=== PATIENT | male | born 1990 | race Caucasian/White ===

== ENCOUNTER 2024-08-23 09:03 | Outpatient (OUT) | payer MEDICAID, SELFPAY ==
--- NOTE | 2024-08-23 09:13 | CT_ITS ---
The [address] [address] Patient Name: JUICE WHITE MRN: [id number] date: 1990 Sex: M Assigned Patient Location: CT Current Patient Location: CT Accession/Order Number: [id number] Exam Date: 08/23/2024 11:32 Report Date: 08/23/2024 12:23 At the request of: LIZBETH FARR NP Procedure: CT abdomen pelvis w con CT Abdomen and Pelvis withcontrast TECHNIQUE: Axial imaging with 2-D reconstruction.100 cc of Omnipaque 300. The CT exam was performed using one or more the following dose reduction techniques: Automated exposure control, adjustment of the MA and/or Kv according to patient size, or use of the iterative reconstruction technique. COMPARISON: None History: Acute left inguinal mass developing 3-4 weeks ago. No leakage of follow-up. Limited fluid. LIMITATIONS: None LOWER THORAX mild atelectasis LIVER: Tiny subcentimeter ill-defined hypodensities seen throughout the liver. These are indeterminate. 2 small to characterize. GALLBLADDER: No gallbladder abnormality identified. BILE DUCTS: No dilatation SPLEEN: A tiny subcentimeter hypodensity in the inferior portion of the spleen. Indeterminate. PANCREAS: Unremarkable ADRENAL GLANDS: Unremarkable KIDNEYS:Unremarkable AORTA: No abdominal aortic aneurysm identified. RETROPERITONEUM: Mildly prominent periaortic lymph nodes seen. Maximal short axis dimension less than 1 cm. MESENTERY:Unremarkable SMALL BOWEL: The small bowel loops are nondistended. APPENDIX: The appendix is normal. COLON: Unremarkable URINARY BLADDER: Urinary bladder is unremarkable. REPRODUCTIVE SYSTEM: Reproductive structures are unremarkable. PNEUMOPERITONEUM: None PERITONEAL FLUID:None BONY STRUCTURES: Unremarkable ABDOMINAL WALL: In the left groin and region there is somewhat ill-defined hypodense likely fluid collection measuring 3.3 x 3.0 cm. Adjacent stranding identified. Suspected 2 cm soft tissue component identified. Adjacent to the collection there are multiple small lymph nodes identified. Largest measures 1.3 x 0.8 cm. In the left iliac region there is enlarged lymph node measuring 2.7 x 1.8 cm. Mildly prominent right inguinal lymph nodes identified. Largest measures up to 10 mm in short axis dimension. The more posterior in the pelvis in the left iliac region there is identification of additional lymph node measuring 2.[address]/CT abdomen pelvis w con IMPRESSION: 3.3 cm collection identified in the left inguinal region with adjacent inflammatory changes. This may correspond with patient's history of purulent drainage and may represent abscess. There is adjacent soft tissue component present. This may correspond with enlarged lymph node. There is also additional adjacent enlarged lymph nodes. There is also additional enlarged lymph nodes identified in the left iliac chain. Constellation of findings may represent infectious or inflammatory etiology. Continued follow-up assessment to exclude malignancy should be consideration. Additionally there are multiple very small indeterminate hepatic lesions identified. These are too small to characterize and may represent multiple cysts. These should be further assessed to exclude other etiologies. Best modality for assessment would include MRI of the abdomen with and without contrast. Impression dictated by: Antoine Matamoros M.D.08/23/2024 12:23 PM Dictation Location: [place] [address] Electronically authenticated by: [id number] Y Date: 08/23/2024 12:23
== END 2024-08-23 09:04 | disposition home or self-care (01) ==
PROVIDERS: PCP Family Medicine; Visit Provider Nurse Practitioner Primary Care
DX: R19.02 Left upper quadrant abdominal swelling, mass and lump (principal); R94.8 Abnormal results of function studies of other organs and systems
CPT/HCPCS: 74177; Q9967

== ENCOUNTER 2024-09-09 08:02 | Outpatient (OUT) | payer OTHER, SELFPAY ==
--- OUTSIDE RECORDS SUMMARY | 2024-09-03 09:09 | XMS_ITS | CCD ---
Author Organization [facility] Inform ion Partnership GROUP EXERCISE INSTRUCTOR [facility] Care Team Providers Care Director Marketing Name Role Phone Seal CORONA Sharif ODILONLexus Primary Care Provider Helga Cruz Primary Care Provider TIMBO GILBERT Consulting Unavailable NICK GENTILE Attending Unavailable BLUNT, HELGA M Primary Care Unavailable Blunt, Helga M Primary Care Provider BLUNT, HELGA M Primary Care Unavailable GENO, ABED E Admitting Unavailable GENO, ABED E Attending Unavailable No Pcp, No Pcp Primary Care Provider Unavailabl e BLUNT, HELGA M Primary Care Unavailable BITE V, CEFERINO Referring Unavailable BITE V, CEFERINO Attending Unavailable Blunt Helga [facility] Primary Care Provider CARLOS ALBERTO GONZALEZ Referring Unavailable NO PCP, NO PCP Primary Care Unavailable CHRISTINA BAKER Referring Unavailable NO PCP, NO PCP Primary Care Unavailable PHYSICIAN, UNKNOWN Referring Unavailable NO PCP, NO PCP Primary Care Unavailable PHYSICIAN, UNKNOWN Referring Unavailable NO PCP, NO PCP Primary Care Unavailable PHYSICIAN, UNKNOWN Referring Unavailable NO PCP, NO PCP Primary Care Unavailable Blunt, Helga M Attending Unavailable Blunt, Helga M Primary Care Unavailable Blunt, Helga M Attending Unavailable Blunt, Helga M Primary Care Unavailable Blunt, Helga M Attending Unavailable Blunt, Helga M Primary Care Unavailable Blunt, Helga M Primary Care Unavailable Bite DO, Ceferino V Admitting Unavailable Bite DO, Ceferino V Attending Unavailable Allergies Allergy Classification Reported Allergen(s) Allergy Type Date of Onset Reaction(s) Facility (13 sources) Penicillins; Translations: [PENICILLINS] Propensity to adverse reactions to drug 12-31-2013 Swelling [facility] Medications Current Medications Medication Drug Class(es) Dates Sig (Normalized) Sig (Original) benzoyl peroxide 50 mg/ml topical solution (1 source) Start: 02-06-2024 benzoyl peroxide 5 % external liquid Indications: Hidradenitis suppurativa Wash affected areas once daily 227 g 3 02/06/2024 Active buprenorphine 8 mg / naloxone 2 mg sublingual film (1 source) Partial Opioid Agonist, Opioid Antagonist Start: 09-18-2023 buprenorphine-nalox one (SUBOXONE) 8-2 MG FILM SL film dissolve 1 FILM under the tongue twice a day 09/18/2023 Active clindamycin 10 mg/ml topical lotion (1 source) Lincosamide Antibacterial Start: 02-06-2024 clindamycin (CLEOCIN T) 1 % lotion Indications: Hidradenitis suppurativa Apply to affected areas daily 60 mL 3 02/06/2024 Active dimethyl fumarate 120 mg delayed release oral capsule (1 source) Start: 06-21-2022 take 1 capsule by mouth twice daily dimethyl fumarate (TECFIDERA) 120 MG delayed release capsule Take 1 capsule by mouth 2 times daily 14 capsule 0 06/21/2022 Active doxepin hydrochloride 10 mg oral capsule (6 sources) Tricyclic Antidepressant Start: 09-23-2016 take 1 capsule by mouth in the morning doxepin (SINEquan) 10 mg capsule Take 1 capsule (10 mg total) by mouth in the morning. 09/23/2016 Active 1 ml EPINEPHrine 1 mg/ml injection (1 source) alpha-Adrenergic Agonist, beta-Adrenergic Agonist, Catecholamine Start: 01-17-2024 End: 01-18-2024 0.3 mg, intramuscular, Every 5 min PRN, emergency use for dypsnea, wheezing, stridor, or hypotension (at least 30% decrease in systolic BP) (from treatment/therapy plan)., Starting on Mon01/17/24 at 0823, For 3 doses, Give IM into the anterolateral aspect of the middle third of the thigh (preferred) up to 3 doses (total of 0.9 mg). Activate emergency response Look-alike/sound-al gerson medication - verify indication for use. gabapentin 100 mg oral capsule (6 sources) Anti-epileptic Agent Start: 11-18-2018 take 1 capsule by mouth twice daily as needed gabapentin (NEURONTIN) 100 mg capsule Take 1 capsule (100 mg total) by mouth 2 (two) times a day as needed. 0 11/18/2018 Active 1000 ml glucose 100 mg/ml injection (3 sources) Start: 02-14-2022 take 1 mL intravenously every hour IntraVENous, at 100 mL/hr, CONTINUOUS PRN, if blood glucose remains LESS THAN 70 mg/dL after 2 dextrose 10% intravenous boluses or administration of glucagon, Starting on Mon02/14/22 at 0348 If blood glucose fails to stabilize after 2 dextrose 10% intravenous boluses or glucagon administration, start dextrose 10% infusion at 100 mL/hour and repeat blood glucose at 30 and 60 minutes. If blood glucose is GREATER THAN 70 mg/dL after 60 minutes, discontinue dextrose 10% infusion. Start: 02-14-2022 dextrose bolus 10% 125 mL Start: 02-14-2022 16 g (4 tablet ), Oral, PRN, Starting on Mon02/14/22 at 0348, Until Discontinued, Low blood sugar If blood glucose is LESS THAN 70 mg/dL and patient is alert and tolerating oral. Give 4 tablets (16g) Repeat blood glucose in 15 minutes. If blood glucose is LESS THAN 70 mg/dL, repeat treatment and recheck blood glucose in 15 minutes x 2. If blood glucose remains LESS THAN 70 mg/dL, notify provider. meloxicam 7.5 mg oral tablet (6 sources) Nonsteroidal Anti-inflammatory Drug take 1 tablet by mouth in the morning meloxicam (MOBIC) 7.5 mg tablet Take 1 tablet (7.5 mg total) by mouth in the morning. Active modafinil 200 mg oral tablet (1 source) Sympathomimetic-like Agent Start: End: take 1 tablet by mouth once daily modafinil (PROVIGIL) 200 MG tablet Indications: Relapsing remitting multiple sclerosis (HCC) Take 1 tablet by mouth daily for 30 days. Max Daily Amount: 200 mg 30 tablet 0 12/26/2022 01/25/2023 Active ondansetron (ZOFRAN-ODT) disintegrating tablet 4 mg (1 source) Start: ondansetron (ZOFRAN-ODT) disintegrating tablet 4 mg pantoprazole 40 mg delayed release oral tablet (4 sources) Proton Pump Inhibitor Start: End: 09-28-2 022 take 1 tablet by mouth once daily pantoprazole (PROTONIX) 40 MG tablet Take 1 tablet by mouth daily for 7 days 7 tablet 0 02/16/2022 Active pantoprazole (PROTONIX) 40 mg in sodium chloride (PF) 10 mL injection (1 source) Start: 40 mg, IntraVENous, DAILY, First dose on 02/14/22 at 0400 Reconstitute with 10 mL 0.9 % sodium chloride and administer over at least 2 minutes. predniSONE 20 mg oral tablet (4 sources) Start: End: take 4 tablets by mouth once daily predniSONE (DELTASONE) 10 MG tablet Take 4 tablets by mouth daily for 3 days 12 tablet 0 03/08/2022 03/11/2022 Active Start: 03-08-2022 End: 03-11-2022 take 2 tablets by mouth once daily predniSONE (DELTASONE) 10 MG tablet Take 2 tablets by mouth daily for 3 days 6 tablet 0 03/08/2022 03/11/2022 Active Start: 03-08-2022 End: 03-11-2022 take 3 tablets by mouth once daily predniSONE (DELTASONE) 20 MG tablet Take 3 tablets by mouth daily for 3 days 9 tablet 0 03/08/2022 03/11/2022 Active Start: 03-08-2022 End: 03-11-2022 take 2 tablets by mouth once daily predniSONE (DELTASONE) 5 MG tablet Take 2 tablets by mouth daily for 3 days 6 tablet 0 03/08/2022 03/11/2022 Active 1000 ml sodium chloride 9 mg/ml injection (9 sources) Start: 06-26-2024 take 25 mL intravenously every hour as needed 25 mL/hr, intravenous, Continuous PRN, When mainline IV needed., Starting on Mon06/26/24 at 1131, Match IVF to base solution of product being administered to ensure compatibility. Start: 06-20-2024 10 mL, IntraVE Nous, PRN, Starting on Mon06/20/24 at 0919, Until Discontinued, Line Care Start: 01-17-2024 take 25 mL intraveno usly every hour as needed 25 mL/hr, intravenous, Continuous PRN, When mainline IV needed., Starting on Mon01/17/24 at 0823, Match IVF to base solution of product being administered to ensure compatibility. Start: 01-17-2024 End: 01-18-2024 500 mL, intravenous, at 3,00 0 mL/hr, Administer over 10 Minutes, As needed, decrease of systolic BP greater than 30% from baseline., Starting on Mon01/17/24 at 0823, For 1 dose, wide open off of the IV pump. Call provider for additional bolus', if needed. Start: 12-28-2023 End: 12-28-2023 take 25 mL intravenously every hour as needed 25 mL/hr, intravenous, Continuous PRN, When mainline IV needed., Starting on Lori 12/28/23 at 0931, Match IVF to base solution of product being administered to ensure compatibility. Start: 02-14-2022 take 1 dose intraven ously twice daily 5-40 mL, IntraVENous, EVERY 12 HOURS SCHEDULED (2 times per day), First dose on Mon02/14/22 at 2100, Until Discontinued For Line Patency: Peripheral IV = 5 mL; Midline or Central Line = 10 mL/lumen. If following IV push medication, administer flush at same rate as the IV push. Flush volume is determined by type of infusion therapy being given. For non-viscous solutions use: Peripheral IV = 5 mL Midline or Central Line = 10 mL/lumen For viscous solutions (i.e. blood components, parenteral nutrition, contrast media, or after obtaining blood sample) use: Peripheral IV = 10 mL Midline or Central Line = 20 mL/lumen Start: 02-14-2022 take 5-40 mL intrave nously once as needed 5-40 mL, IntraVENous, PRN, Starting on Mon02/14/22 at 1800, Until Discontinued, Line Care, After every IV line use For Line Patency: Peripheral IV = 5 mL; Midline or Central Line = 10 mL/lumen. If following IV push medication, administer flush at same rate as the IV push. Flush volume is determined by type of infusion therapy being given. For non-viscous solutions use: Peripheral IV = 5 mL Midline or Central Line = 10 mL/lumen For viscous solutions (i.e. blood components, parenteral nutrition, contrast media, or after obtaining blood sample) use: Peripheral IV = 10 mL Midline or Central Line = 20 mL/lumen Start: 02-14-2022 sodium chlorid e flush 0.9 % injection 10 mL Start: 02-14-2022 IntraVENous, a t 5-250 mL/hr, PRN, if patient receiving piggyback infusions and maintenance fluids are not ordered OR KVO fluids to protect IV site / prevent frequent line interruptions/ long duration, Starting on Mon02/14/22 at 0348 For piggyback infusion, administer at same rate as piggyback for a total of 25 mL. Enter 25 mL into dose field and piggyback rate into rate field of order. If piggyback is infusing at a rate less than 100 mL/hr, enter 25 mL into dose field and 100 mL/hr into rate field of order. For KVO fluids, enter rate of 20 mL/hr or less into rate field of order. tadalafil 5 mg oral tablet (1 source) Phosphodiesterase 5 Inhibitor Start: 04-23-2022 take 1 tablet by mouth once daily tadalafil (CIALIS) 5 MG tablet take 1 tablet by mouth once daily 0 04/23/2022 Active tamsulosin hydrochloride 0.4 mg oral capsule (1 source) alpha-Adrenergic Natalia Start: 04-11-2024 take 1 capsule by mouth once daily tamsulosin (FLOMAX) 0.4 MG capsule Take 1 capsule by mouth daily 30 capsule 11 04/11/2024 Active teriflunomide 14 mg oral tablet (6 sources) Pyrimidine Synthesis Inhibitor Start: 12-19-2018 take 1 tablet by mouth in the morning teriflunomide 14 mg tablet Take 1 tablet (14 mg total) by mouth in the morning. 12/19/2018 Active traMADol hydrochloride 50 mg oral tablet (6 sources) Opioid Agonist take 1 tablet by mouth every six hours as needed traMADol (ULTRAM) 50 mg tablet Take 1 tablet (50 mg total) by mouth every 6 (six) hours as needed. Active Completed/Discontinued Medications Medication Drug Class(es) Dates Sig (Normalized) Sig (Original) acetaminophen 500 mg oral tablet (4 sources) Start: 06-26-2024 End: 06-26-2024 take 500 mg by mouth once 500 mg, oral, Once, On Mon06/26/24 at 1145, For 1 dose Start: 01-17-2024 End: 01-17-2024 take 500 mg by mouth once 500 mg, oral, Once, On Mon at 0830, For 1 dose Start: 12-28-2023 End: 12-28-2023 take 500 mg by mouth once 500 mg, oral, Once, On Mon at 0945, For 1 dose Start: 02-14-2022 acetaminophen (TYLENOL) tablet 650 mg diphenhydrAMINE hydrochloride 25 mg oral capsule (4 sources) Histamine-1 Receptor Antagonist Start: 06-26-2024 End: 06-26-2024 take 25 mg by mouth once 25 mg, oral, Once, On Mon06/26/24 at 1145, For 1 dose, Look-alike/sound-alike medication - verify indication for use. Start: 01-17-2024 End: 01-17-2024 take 25 mg by mouth once 25 mg, oral, Once, On Mon at 0830, For 1 dose, Look-alike/sound-alike medication - verify indication for use. Start: 01-17-2024 End: 01-18-2024 25 mg, intravenous, Every 15 min PRN, emergency use for urticaria, pruritus, or flushing (from treatment/therapy plan)., Starting on Mon01/17/24 at 0823, For 2 doses, Look-alike/sound-alike medication - verify indication for use. Start: 12-28-2023 End: 12-28-2023 take 25 mg by mouth once 25 mg, oral, Once, On 06/21 at 0945, For 1 dose, Look-alike/sound-alike medication - verify indication for use. 0.4 ml enoxaparin sodium 100 mg/ml prefilled syringe (1 source) Low Molecular Weight Heparin Start: 02-14-2022 inject 40 mg by subcutaneous injection once daily 40 mg, SubCUTAneous, DAILY, First dose on Mon02/14/22 at 0900, Until Discontinued Indication of Use: Prophylaxis-DVT/PE gadoteridol (PROHANCE) injection 14 mL (1 source) Start: 02-14-2022 End: 02-14-2022 gadoteridol (PROHANCE) injection 14 mL gadoteridol (PROHANCE) injection 15 mL (1 source) Start: 06-20-2024 End: 06-20-2024 take 1 dose intravenously once 15 mL, IntraVENous, IMG ONCE PRN, 1 dose, Starting on Lori 06/20/24 at 0917, Until Lori 06/20/24 at 0918, Other glucagon (rdna) 1 mg injection (1 source) Antihypoglycemic Agent Start: 02-14-2022 inject 1 mg by subcutaneous injection every hour as needed 1 mg, SubCUTAneous, PRN, Starting on Mon02/14/22 at 0348, Until Discontinued, Low blood sugar, Blood glucose LESS THAN 70 mg/dL and patient NOT ALERT or NPO and does not have IV access. After administration, attempt intravenous access and start dextrose 10% at 100 mL/hr. Repeat blood glucose in 15 minutes x 2 and notify provider. insulin lispro 100 unt/ml injectable solution (2 sources) Insulin Analog Start: 02-14-2022 0-4 Units, SubCUTAneous, NIGHTLY, First dose on Mon02/14/22 at 2100, Until Discontinued If continuous tube feedings/TPN/NPO, give correction dose based on result, no reduction in dose. If eating or bolus tube feeding: Corre ctive Bedtime Algorithm Gluc ose: Dose: 70-299 No Insulin 300-349 4 Units Over 349 4 Units and notify physician Start: 02-14-2022 0-8 Units, Sub CUTAneous, 3 TIMES DAILY WITH MEALS, First dose on Mon02/14/22 at 0800, Until Discontinued Medium Dose Corrective Algorithm Glucose: Dose: 70-199 No Insulin 200-249 2 Units 250-299 4 Units 300-349 6 Units Over 349 8 Units and notify physician LORazepam 0.5 mg oral tablet (1 source) Benzodiazepine Start: 02-14-2022 End: 02-14-2022 LORazepam (ATIVAN) tablet 1 mg Start: 02-14-2022 End: 02-14-2022 LORazepam (ATIVAN) tablet 1 mg methylPREDNISolone 125 mg injection (9 sources) Corticosteroid Start: 06-26-2024 End: 06-26-2024 125 mg, intravenous, Once, On 06/26/24 at 1145, For 1 dose, May alter blood glucose or insulin requirements. Look-alike/sound-alike medication - verify indication for use. Start: 01-17-2024 End: 01-17-2024 125 mg, intravenous, Once, O n 01/17/24 at 0830, For 1 dose, May alter blood glucose or insulin requirements. Look-alike/sound-alike medication - verify indication for use. Start: 01-17-2024 End: 01-18-2024 125 mg, intravenous, As need ed, emergency use for adverse reactions (from treatment/therapy plan)., Starting on 01/17/24 at 0823, For 2 doses, Should not be used as initial management of anaphylaxis but may prevent a prolonged or recurrent reaction. May alter blood glucose or insulin requirements. Look-alike/sound-alike medication - verify indication for use. Start: 12-28-2023 End: 12-28-2023 125 mg, intravenous, Once, O n Lori 12/28/23 at 0945, For 1 dose, May alter blood glucose or insulin requirements. Look-alike/sound-alike medication - verify indication for use. Start: 03-08-2022 End: 03-08-2022 methylPREDNISolone sodium (SOLU-MEDROL) injection 125 mg Start: 02-16-2022 inject 1000 mg intra venously once daily methylPREDNISolone sodium (SOLU-MEDROL) 1000 MG injection Indications: Relapsing remitting multiple sclerosis (HCC) 1000 mg intravenously daily for 2 days; diagnosis: multiple sclerosis 2 each 0 02/16/2022 Active methylPREDNISolone sodium (SOLU-MEDROL) 1,000 mg in sodium chloride 0.9 % 250 mL IVPB (2 sources) Start: 02-19-2022 End: 02-19-2022 methylPREDNISolone sodium (SOLU-MEDROL) 1,000 mg in sodium chloride 0.9 % 250 mL IVPB Start: 02-15-2022 End: 02-20-2022 methylPREDNISolone sodium (S GEOFF-MEDROL) 1,000 mg in sodium chloride 0.9 % 250 mL IVPB methylPREDNISolone sodium (SOLU-MEDROL) 500 mg in sodium chloride 0.9 % 250 mL IVPB (1 source) Start: 02-14-2022 End: 02-14-2022 500 mg, IntraVENous, at 500 mL/hr, Administer over 30 Minutes, 2 times daily, First dose on Mon02/14/22 at 0900 polyethylene glycol 3350 23847 mg powder for oral solution (1 source) Osmotic Laxative Start: 02-14-2022 17 g, Oral, D AILY PRN, Starting on Mon02/14/22 at 0348, Until Discontinued, Constipation First line therapy for constipation ublituximab-xiiy (BRIUMVI) 150 mg in sodium chloride 0.9 % 250 mL IVPB (1 source) Start: 12-28-2023 End: 12-28-2023 150 mg, intravenous, Once, On Mon12/28/23 at 0945, For 1 dose, 1st dose Dose 1 (150 mg): Initiate infusion at 10 mL/hour for 30 minutes; if tolerated, increase to 20 mL/hour for 30 minutes; if tolerated, increase to 35 mL/hour for 60 minutes; if tolerated, increase to 100 mL/hour for the remainder of the infusion. Infusion duration: 4 hours. Dose 2 and subsequent infusions (450 mg): Initiate infusion at 100 mL/hour for 30 minutes; if tolerated, increase to 400 mL/hour for the remainder of the infusion. Infusion duration: 1 hour. Monitor for infusion reactions during infusion and observe for at least 1 hour after completion of first two infusions. ublituximab-xiiy (BRIUMVI) 450 mg in sodium chloride 0.9 % 250 mL IVPB (2 sources) Start: 06-26-2024 End: 06-26-2024 450 mg, intravenous, Once, On Mon06/26/24 at 1145, For 1 dose, Maintenance dose, to start 24 weeks after 1st dose, then every 24 weeks thereafter Dose 1 (150 mg): Initiate infusion at 10 mL/hour for 30 minutes; if tolerated, increase to 20 mL/hour for 30 minutes; if tolerated, increase to 35 mL/hour for 60 minutes; if tolerated, increase to 100 mL/hour for the remainder of the infusion. Infusion duration: 4 hours. Dose 2 and subsequent infusions (450 mg): Initiate infusion at 100 mL/hour for 30 minutes; if tolerated, increase to 400 mL/hour for the remainder of the infusion. Infusion duration: 1 hour. Monitor for infusion reactions during infusion and observe for at least 1 hour after completion of first two infusions. Start: 01-17-2024 End: 01-17-2024 450 mg, intravenous, Once, O n 01/17/24 at 0830, For 1 dose, 2nd dose, 2weeks after 1st dose Dose 1 (150 mg): Initiate infusion at 10 mL/hour for 30 minutes; if tolerated, increase to 20 mL/hour for 30 minutes; if tolerated, increase to 35 mL/hour for 60 minutes; if tolerated, increase to 100 mL/hour for the remainder of the infusion. Infusion duration: 4 hours. Dose 2 and subsequent infusions (450 mg): Initiate infusion at 100 mL/hour for 30 minutes; if tolerated, increase to 400 mL/hour for the remainder of the infusion. Infusion duration: 1 hour. Monitor for infusion reactions during infusion and observe for at least 1 hour after completion of first two infusions. 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 disorder; Translations: [Multiple sclerosis] Onset: 01-20-2014 Chronic Other nervous system disorders (5 sources) Chronic pain; Translations: [Other chronic pain] Onset: 12-31-2013 12-31-2013 Chronic Residual codes; unclassified (1 source) Other specified postprocedural states; Translations: [Other specified postprocedural states] Onset: 03-26-2024 Episodic Skin and subcutaneous tissue infections (1 source) Pilonidal cyst without abscess; Translations: [Pilonidal cyst without abscess] Onset: 03-26-2024 Episodic Substance-related disorders (5 sources) Polysubstance abuse ; Translations: [Other psychoactive substance abuse, uncomplicated] Onset: 08-18-2015 08-18-2015 Chronic Unclassified (1 source) Outpatient Infusion Onset: 06-26-2024 Past or Other Problems Problem Classification Problem Date Documented Da te Episodic/Chronic Acute cerebrovascular disease (8 sources) Hemorrhage into subarachnoid space of neuraxis; Translations: [Nontraumatic subarachnoid hemorrhage, unspecified] Onset: 08-18-2015 Resolved: 07-28-2020 07-28-2020 Chronic Administrative/social admission (5 sources) Impaired mobility; Translations: [Other reduced mobility] Resolved: 07-28-2020 07-28-2020 Episodic E Codes: Struck by; against (5 sources) Other cause of strike by thrown, projected or falling object, initial encounter; Translations: [Struck accidentally by falling object] Onset: 08-18-2015 08-18-2015 Episodic Epilepsy; convulsions (5 sources) Posttraumatic seizure; 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] Onset: 10-07-2015 10-26-2016 Episodic Intracranial injury (2 sources) Hematoma of subdural space of neuraxis; Translations: [Traumatic subdural hemorrhage with loss of consciousness of unspecified duration, initial encounter] Onset: 08-20-2015 Resolved: 07-28-2020 07-28-2020 Episodic Other fractures (5 sources) Closed fracture of seventh cervical vertebra; Translations: [Unspecified nondisplaced fracture of seventh cervical vertebra, initial encounter for closed fracture] Onset: 08-19-2015 Resolved: 07-28-2020 07-28-2020 Episodic Other injuries and conditions due to external causes (5 sources) Closed injury of head; Translations: [Unspecified injury of head, initial encounter] Resolved: 07-28-2020 07-28-2020 Episodic Other nervous system disorders (6 sources) Numbness of lower limb ; Translations: [Anesthesia of skin] Onset: 02-14-2022 Episodic Other nervous system disorders (6 sources) Transverse myelopathy syndrome; 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] Onset: 02-14-2022 Episodic Other skin disorders (5 sources) Sebaceous cyst of skin; Translations: [Sebaceous cyst] Onset: 01-01-2014 Resolved: 07-28-2020 07-28-2020 Episodic Residual codes; unclassified (5 sources) Amnesia; Translations: [Other amnesia] Onset: 07-28-2020 07-28-2020 Episodic Respiratory failure; insufficiency; arrest (adult) (5 sources) Acute respiratory failure; Translations: [Acute respiratory failure, unspecified whether with hypoxia or hypercapnia] Onset: 08-18-2015 Resolved: 07-28-2020 07-28-2020 Episodic Skull and face fractures (5 sources) Fracture of occipital condyle; Translations: [Unspecified occipital condyle fracture, initial encounter for closed fracture] Onset: 08-18-2015 Resolved: 07-28-2020 07-28-2020 Episodic Results Test Name Value Interpretation Reference Range Facility BLOOD TB SCREEN, INCUBATEDon 08-28-2024 M. tuberculosis tuberculin stim IFN-g Ql (Bld) Negative Normal [facility] Comment on above: Order Comment: Abi carpio Type: BLOOD SPECIMEN Ordering Facility: [facility] Address: [address] [place] [address] Performed By: #### I NTPGP #### [facility] CLIA [id number] [address] [place] [address] [place]ST[place] MITOGEN MINUS NIL >9.92 Normal >=0.50 [facility] Comment on above: Order Comment: Abi carpio Type: BLOOD SPECIMEN Ordering Facility: [facility] Address: [address] [place] [address] Performed By: #### I NTPGP #### [facility] CLIA [id number] [facility] [address] [facility] TB GAMMA INTERPRETATION Infection with M. tuberculosis complex is unlikely. If latent tuberculosis infection is highly suspected, a negative result does not rule out the infection. Specimens from immunocompromised patients and those <5 years of age may show false negative results. In case of a contact investigation, please repeat 8-12 weeks after a known exposure. Normal [facility] Comment on above: Order Comment: Abi carpio Type: BLOOD SPECIMEN Ordering Facility: [facility] Address: [address] [place] [address] Performed By: #### I NTPGP #### [facility] CLIA [id number] [address] [place] [address] [place] TB NIL 0.08 IU/mL Normal <=8.00 [facility] Comment on above: Order Comment: Speci men Type: BLOOD SPECIMEN Ordering Facility: [facility] Address: [address] [place] [address] Performed By: #### I NTPGP #### [facility] CLIA [id number] [address] [place] [address] [place] TB1 AG MINUS NIL 0.10 IU/mL Normal <0.35 [facility] Comment on above: Order Comment: Speci men Type: BLOOD SPECIMEN Ordering Facility: [facility] Address: [address] [place] [address] Performed By: #### I NTPGP #### [facility] CLIA [id number] [address] [place] [address] [place] TB2 AG MINUS NIL 0.01 IU/mL Normal <0.35 [facility] Comment on above: Order Comment: Speci men Type: BLOOD SPECIMEN Ordering Facility: [facility] Address: [address] [place] [address] Performed By: #### I NTPGP #### [facility] CLIA [id number] [address] [place] [address] [place] Rad - CT Reporton 08-26-2024 Rad - CT Report [id number]#1 .00OTGTIFF Normal [facility] BLOOD TB SCREEN, INCUBATEDon 08-18-2024 M. tuberculosis tuberculin stim IFN-g Ql (Bld) Negative Normal [facility] Comment on above: Order Comment: Speci men Type: BLOOD SPECIMEN Ordering Facility: [facility] Address: [address] [place] [address] Performed By: #### I NTPGP #### [facility] CLIA [id number] [address] [place] [address] [place] MITOGEN MINUS NIL >9.90 Normal >=0.50 [facility] Comment on above: Order Comment: Speci men Type: BLOOD SPECIMEN Ordering Facility: [facility] Address: [address] [place] [address] Performed By: #### I NTPGP #### [facility] CLIA [id number] [address] [place] [address] [place] TB GAMMA INTERPRETATION Infection with M. tuberculosis complex is unlikely. If latent tuberculosis infection is highly suspected, a negative result does not rule out the infection. Specimens from immunocompromised patients and those <5 years of age may show false negative results. In case of a contact investigation, please repeat 8-12 weeks after a known exposure. Normal [facility] Comment on above: Order Comment: Speci men Type: BLOOD SPECIMEN Ordering Facility: [facility] Address: [address] [place] [address] Performed By: #### I NTPGP #### [facility] CLIA [id number] [address] [place] [facility] [place] TB NIL 0.10 IU/mL Normal <=8.00 [facility] Comment on above: Order Comment: Speci men Type: BLOOD SPECIMEN Ordering Facility: [facility] Address: [address] [place] [address] Performed By: #### I NTPGP #### [facility] CLIA [id number] [address] [place] [address] [place] TB1 AG MINUS NIL 0.03 IU/mL Normal <0.35 [facility] Comment on above: Order Comment: Speci men Type: BLOOD SPECIMEN Ordering Facility: [facility] Address: [address] [place] [address] Performed By: #### I NTPGP #### [facility] CLIA [id number] [address] [place] [address] [place] TB2 AG MINUS NIL 0.02 IU/mL Normal <0.35 [facility] Comment on above: Order Comment: Speci men Type: BLOOD SPECIMEN [facility] Address: [address] [place] [address] Performed By: #### I NTPGP #### [facility] CLIA [id number] [address] [place] [address] [place] [address] [place] Release of Informationon Release of Information [id number]# [facility] 06-25-2024 Outside Records [id number]#1 [facility] - MRI Report [id number]#1 .00[facility] MR Brain WO and W contrast I Von 06-20-2024 Stable white matter lesions from prior exam. No diffusion restriction or contrast enhancement to suggest acute demyelination. Stable sequela of a remote hemorrhage. [facility] RIS CONSOLIDATED EXAMINATION: MRI OF THE BRAIN WITHOUT AND WITH CONTRAST 06/20/2024 9:17 am TECHNIQUE: Multiplanar multisequence MRI of the head/brain was performed without and with the administration of intravenous contrast. COMPARISON: February 14, 2022 MRI HISTORY: ORDERING SYSTEM PROVIDED HISTORY: Relapsing remitting multiple sclerosis (HCC) TECHNOLOGIST PROVIDED HISTORY: STAT Creatinine as needed:->No multiple sclerosis, monitor Reason for Exam: Patient states annual f/u MS. No current complaints. FINDINGS: INTRACRANIAL STRUCTURES/VENTRICLES : Stable white matter lesions from prior exam. Previously seen left pontine lesion is decreased in conspicuity from prior study. No diffusion restriction or contrast enhancement to suggest acute demyelination. There is no acute infarct. No mass effect or midline shift. Stable susceptibility surrounding the right corpus callosum.. The ventricles and sulci are normal in size and configuration. The sellar/suprasellar regions appear unremarkable. The normal signal voids within the major intracranial vessels appear maintained. No abnormal focus of enhancement is seen within the brain. ORBITS: The visualized portion of the orbits demonstrate no acute abnormality. SINUSES: The visualized paranasal sinuses and mastoid air cells demonstrate no acute abnormality. Small mucous retention cysts in the maxillary sinuses bilaterally. BONES/SOFT TISSUES: The bone marrow signal intensity appears normal. The soft tissues demonstrate no acute abnormality. [facility] Antoine Abbott MD - 06/20/2024 EXAMINATION: MRI OF THE BRAIN WITHOUT AND WITH CONTRAST 06/20/2024 9:17 am TECHNIQUE: Multiplanar multisequence MRI of the head/brain was performed without and with the administration of intravenous contrast. COMPARISON: February 14, 2022 MRI HISTORY: ORDERING SYSTEM PROVIDED HISTORY: Relapsing remitting multiple sclerosis (HCC) TECHNOLOGIST PROVIDED HISTORY: STAT Creatinine as needed:->No multiple sclerosis, monitor Reason for Exam: Patient states annual f/u MS. No current complaints. FINDINGS: INTRACRANIAL STRUCTURES/VENTRICLES : Stable white matter lesions from prior exam. Previously seen left pontine lesion is decreased in conspicuity from prior study. No diffusion restriction or contrast enhancement to suggest acute demyelination. There is no acute infarct. No mass effect or midline shift. Stable susceptibility surrounding the right corpus callosum.. The ventricles and sulci are normal in size and configuration. The sellar/suprasellar regions appear unremarkable. The normal signal voids within the major intracranial vessels appear maintained. No abnormal focus of enhancement is seen within the brain. ORBITS: The visualized portion of the orbits demonstrate no acute abnormality. SINUSES: The visualized paranasal sinuses and mastoid air cells demonstrate no acute abnormality. Small mucous retention cysts in the maxillary sinuses bilaterally. BONES/SOFT TISSUES: The bone marrow signal intensity appears normal. The soft tissues demonstrate no acute abnormality. IMPRESSION: Stable white matter lesions from prior exam. No diffusion restriction or contrast enhancement to suggest acute demyelination. Stable sequela of a remote hemorrhage. [facility] Radiology Study observation (narrative) [facility] MR Brain WO and W contrast I VOrdered By: Antoine Jerry on 06-20-2024 [facility] MRI BRAIN W WO CONTRASTon MRI BRAIN W WO CONTRAST EXAMINATION: MRI OF THE BRAIN WITHOUT AND WITH CONTRAST 06/20/2024 9:17 am TECHNIQUE: Multiplanar multisequence MRI of the head/brain was performed without and with the administration of intravenous contrast. COMPARISON: February 14, 2022 MRI HISTORY: ORDERING SYSTEM PROVIDED HISTORY: Relapsing remitting multiple sclerosis (HCC) TECHNOLOGIST PROVIDED HISTORY: STAT Creatinine as needed:->No multiple sclerosis, monitor Reason for Exam: Patient states annual f/u MS. No current complaints. FINDINGS: INTRACRANIAL STRUCTURES/VENTRICLES : Stable white matter lesions from prior exam. Previously seen left pontine lesion is decreased in conspicuity from prior study. No diffusion restriction or contrast enhancement to suggest acute demyelination. There is no acute infarct. No mass effect or midline shift. Stable susceptibility surrounding the right corpus callosum.. The ventricles and sulci are normal in size and configuration. The sellar/suprasellar regions appear unremarkable. The normal signal voids within the major intracranial vessels appear maintained. No abnormal focus of enhancement is seen within the brain. ORBITS: The visualized portion of the orbits demonstrate no acute abnormality. SINUSES: The visualized paranasal sinuses and mastoid air cells demonstrate no acute abnormality. Small mucous retention cysts in the maxillary sinuses bilaterally. BONES/SOFT TISSUES: The bone marrow signal intensity appears normal. The soft tissues demonstrate no acute abnormality. IMPRESSION: Stable white matter lesions from prior exam. No diffusion restriction or contrast enhancement to suggest acute demyelination. Stable sequela of a remote hemorrhage. Interpreted by: Antoine Jerry MD Signed by: Antoine Jerry MD 06/20/24 Final result Normal [facility] Outside Recordson 04-19-2024 Outside Records [id number]#1. [facility] Report on 04-16-2024 Lab - Other Pathology Report [id number]#1 .[facility] Operative Reporton 4 Operative Report [id number] #[facility] OPERATIVE REPORTon 4 [place] [address] OPERATIVE REPORT PATIENT NAME:JUICE WHITE :1990 MED REC NO:[id number] ROOM:[facility] ACCOUNT NO:[id number] ADMIT DATE:03/26/2024 PROVIDER:Parrish Lora MD DATE OF PROCEDURE: 03/26/2024 SURGEON: Parrish Lora MD ADDENDUM: The procedure was quite extensive. It was covering almost the entire right side and part of the left side. It was quite extensive, and it took at least 2-1/2 or more hours from the beginning to the end to take care of these multiple and difficult pilonidal cysts situation. PARRISH LORA MD AEA/AQS Doc#: [id number] [facility] Surgical Pathology Reporton 03-26-2024 Surgical Pathology Report (NOTE) Path Number: [id number] -- Diagnosis -- Skin and subcutaneous tissue, excision: -Pilonidal cyst/sinus with associated area of active chronic abscess. Vern Ramirez M.D. Electronically Signed Out rdd/03/28/2024 Clinical Information Pre-Op Diagnosis: PILONIDAL CYST Operative Findings: PILONIDAL CYSTS Operation Performed: EUA, EXCISION EXTENSIVE PILONIDAL CYST se Source of Specimen A: PILONIDAL CYSTS Gross Description JUICE WHITE, PILONIDAL CYST Received in formalin are fragments of wrinkled hutton skin and subcutaneous tissue, 5.5 x 2.0 x 0.5 cm in aggregate. Sectioning reveals dense hutton-white cut surfaces with no obvious cyst identified grossly. Portion 1cs. tm Microscopic Description Microscopic examination performed. Processing Lab: [address] [address] Interpretation Performed at [address] [id number] SURGICAL PATHOLOGY CONSULTATION Patient Name: JUICE WHITE Med Rec: [id number] [facility] ANATOMIC PATHOLOGY [address] [place] [address]. [place], [place] [phone] [facility] Coding Summaryon 11-14-2023 Coding Summary HTMLBase 64 IwkcuhybBQy7eOf+PGhlY WQ+ZK6AFYPkY59qcTPnuX 7fH1KSCSkLLeriXISKBMi BFdYmzeUvTM6prONgKYSa IC8+NR7pYPHmUltitOQba 1D0yRJ1A16lhw5bZClnrS J2PWWgHkOreqhue7uafBi 6IDcuNmluOyBt EVDpsZ34MDW5qI72Kp59o PPglUFwo0rzsLj0ZlAeIB IbXUO2eWzhYZicv4MxDZX xX14qmRDgg4Q8 XRLkbKqpiAGtHuNfeHU3y Y5pUKfeseyel6xrazqwIt m6ix51eUWzu4L1mTJ7B5L dujF2WLRcjNBx NfuciPHMiQ0hzfmle9jcb smqJyXqDTElNCx8RRd6WF FqoDghLhNpDB75BYF5RVZ pxlFtU8WjYCHe iFtzNdQ1t9A6Dp5ND7YAR qxlL5OQDSZHMSyifEA+PC 42mp52E1JgWrdzUox4ADX cUWF3uYC4lO7z YZFxOBioe8O1iNT0L0Jmk sTyyn5hr3lfCRPgRZrkQ5 8wcAGqi9X7NBJmaSP7HMI hyVckMoFgaG31 Oyc+QAKxcTmiq7TvXsnnc 1jwt4xnlKt9MvkxKBCpad IitIawWHC3n1SvIa9cBYF iaAE4tAX9iY5q OfNkSyA7VObmB164HuWfy UMjQgkxT77qP2PpaQA+PH YmIif7CRQhaAdwDH7bQ1G hZGRpbmctbGVm hPskGT7vMOGenbegWFQpt X5aAUYrC5h2CcYiOsW3TX cqG6HpQMZjagjdSa73mA4 lKqKxTcR9QOgf T4BkwoE6KRRpaKJdXIswY FY4T46vt7Q7YNJrIXMyWX Q2eXK2fB9shWwhubjveNY mdDsgdmVydGlj UMniICmmO115KLGulTzlA kNvZGluZyBEYXRlOiAgMD YvMTgvMjAyNDwvdGQ+PHR tMUL9bBbtYNMx iYFyDSprUg4grYstzXgzE I5bZIZfhiszJUJasC5bPA XilGZppYfpED1mMNTozse wi442EoSqLXD7 FLMzeLHlB0XxyT8eOaDxE ELhLVJcS2MrzAXnQNgxZ9 26EZpzZhB0GPOdevZdZ8X sLWFsaWduOiB0 m9O5Qe1Aw0VedjgxM7Iwh DTwMqIyAmnkOJb7L0RsOc wvdHI+SB01AQGuHW57GCc 2SYP6cNqdHHoz FUFzJ8AfdM2nSuTtVCHuR GRkOyc+PHRhYmxlIHdpZH RoPScxMDAlJyBzdHlsZT0 hYn5mGEFaBKBa yMntqPIjDlKtn8owXGVwK HohVW6zvLcsY3McdMD0AE Kpi6l4Ms29T06fQ9HutMV +CWEdaJE5oPU4 pU1yYtJoGmY7QCrqS126Z iHwhNOlFvpvl9ipf8rikK t2DmK2YOQynzGulQxdDAD 7f6XkOr44R17w IHdpZHRoPSIxNSUiIHZhb Kkclm6xoU6cDx5+PGNvbC S0wCV5mC4cFxCqFwH5ZJd iW601CnNcxKJk Rlaaw2qat2ansMd6FsDmM OJjpjKlsPhcBDB5k6XdLu 70R6DzlZpfx1KhXfx3if8 1xRLzd2G5hBF6 V2BqWHMpdwajkIAsyFqcY Z7dOYXdatliYFTfaV7dOC VeC8o3DmMjEqR4HYxxU6C iseJ6BJPlhLEq EUXviNSFnB5fhytws4aty akfEvUkOWDcOCg7GUg1CK IedPukIkQoATZ8QnS5NOZ 5pPZdaK8stOsv umrorO5hHyx+PQE7cRDgh RWZLM0jYzywoVA+PHRkIH P7eIfcHYzjRYZplS7vACV nN8i0ObLiMbM3 HRbkJ5EdxqD5ZAAipYYtM CAyaDJXkV1djnaid9agvu ufJvUfRREeALa8MXj1YBT saWduOiBsZWZ0 JbG6KER0bQMidC5frBxke dzyxC7sWhr+QmlydGggRG L2KDz5V1ZsTuv8ETTmsZq eDW5rgPKzFJpl Do1fbLvevGlsTU5qIBXjt fmxw143UhHym9ppIFUvuK AaHEkgTEK7D58mq3D7ZRQ qBARmCED0oMJ6 xR1zgRwargtmyIQolFiwe tBdnWwpQGnfQFfxI567VY VzwMgqDdZbZQl5X4PvVxf 5TWQfqQalPO9h nHYpAStfMh1yjDsbgDsgO F8dPTFsimzwa078KaLvh0 hqPTGhlXJnALbcAWC7I27 zs3I8LTExJFAu OIP9nII6zC8tqZrdhdjkx GVmdDsgdmVydGljYWwtYW dqW203RPNvvDicSfInpDg 3B5IqBzy9GGJm yAivUZ5lcWSfZJvoQk0zp XcukDsaVH7jPSYatofye0 54NhDma1ndUBDfjEMqESc cZUT9U77ao6K6 PPZhKSSfGZR4kUL4zQ8au GlnbjogbGVmdDsgdmVydG noSEilRQqeD947QADgyGc nPlBhdGllbnQg JGunYVf1O2CcNgbgdDL+P R08MXCkAI48nEWkmLPpr4 hqgUc2TaBgMCNcOHJ6pXy iJJtys0QeWLKu V30dkVThw7E5SBHpcRuql ZYhPqUtqCJ4jD2qYRyxre fgj3wodhzhOioxt9xihy5 8rI10Z38oGMmx ZHRoPSIzMCUiIHZhbGlnb h4scE5yUy4+PJDygRU9sF S9qX4bLEIuCvC6ZKrzW98 9InRvcCIvPjxj p7pjr2rbzLr3MdL7FZSru aThvKliVRT5x2CiAe22G8 9sIHdpZHRoPSIyMCUiIHZ crDjwpw7axL0c Ii8+RIRwwDX2cZL8rD0dI wAqYiO3NYaoI381PnRceP BfDrlvG07jQ9GnrEU+PHR hXsi9VBMvrLnl BN1vlOKsYWpyWh4wNCL7N cHfNpYfONkfG1HmLZQgof eywkjpeFF8GADdUYZfyK6 6Ft2tqWsuXBVm tGFGzG7hsotfx3cfniuiQ wSfPSClHAg0TAk6AQZqvC bkYhWcFNW4NvL4NBO9xHZ zwK6yiSysfquq wL4kR9WtTJMnakbfNg06i B7qPgYlMtS2BVeuWpr+TU 6VF0SjVPLFKDWFHfPTQEW ARWXOEM52EQ89 mKMtc3D1jNJ9U3XjABTcp udqqknqcPP1EONgQSGzpC 69vBNcVVycIs5ii1Y2m51 2DAMpUNOqlE62 Dl9ziPurGJWpiLQLnH0lx vqjs0byyfxjFbKxZXNsLM t5NQm7MAPuxYwoYfLmPOJ 8QyJ8SXT8zJJr rD0dcExwbyzybD8xFjf+M CzpCHXkCRd2ECepjMC+PH WaYHZ9gMjaYNvxKPKdxA0 kVFMqQ2x8NbPh NaS8GRamX8DfLKVctuxxQ f43kW1zTmSwWpX5BIrlN4 DccnB0MUFlxLPjHTljKMD 8K79an9F2EJWq NFFgLKG3pUF4iL1oaPite jogbGVmdDsgdmVydGljYW uzLOrrB806IRXjrXwoBlG 1TPmsYJIaYT11 UE60vZEzu5E7yFQ0Y1FeZ ZHwmyubmvxpxON2ECNqDM DclX58yIRfGQwzDw4jt2B 7d480FFEyPIPp oT56Rl3abWhjGQSkiWRUa E6grynxe8tryjciPtQxCH OuZMw3QWo8ARWwhHniXrS nIRQ7ZvU3AOH7 hIWpbU5hdLnwneissE8xB yc+TUFMRTwvdGQ+PHRkIH R9oCvwQYfnLBJbeC4nZXT gI3a8CbLuZnD9 YYqcR0OlZZKdfwmuEk97b Z7qRwWnUiN2UVvkP0Exkg W1TQHmlEFgLElkHAS6B67 py6N7IEWgDLSb FZM9iRH7vV8ljIghfrljm GVmdDsgdmVydGljYWwtYW ejY050UOEurDgaWd4CCK5 4PS42C0QkLzjr dGFibGU+PHRhYmxlIHdpZ HRoPScxMDAlJyBzdHlsZT 7nPf8rRPCiWAZleCblbUJ hJnPor0beCWNo ZVfzAO9okNwfL6EegSV3R IMqj9g0Hf39U20fY0XwdP A+LWXraMZ3fHW5gS4eAmW yIcF7NNgmO421 NpRntOLsSkzjj5ofl4jnx Tw6DiVaYCIazaBaiJqmLF R6w0MlMi31B26hOIidRCI oPSIyMCUiIHZh mFvggl2kqS4xZs5+PGNvb JA5hZU9hB7kUxXcTyG3OQ qoH605IdTdhWTcMtirE44 cJ1UubMU+PHRy Dmp1MTBmhRvbFP3rtXQrU XhwFx6eGKA4FgCxWsQyFW lrY5ErHBRcxxpvjlqfmCV 7RAAdIKQpmC30 Wo3foUqzIa0pOUQmHAY0T DLnlFSkS8MolG1hXnEhND NlWGYsM5FmfXArNNgtC74 0LRdtYoQ6ZBOa hcMsF4NyFIPtuHjjCiX6m 2O0Yw3OdPebiBDeFF2yRi QzRRe5U3TaQig2SBPdvTx oUC4wdUPxONux Qf0skSltwHgeVF8cBTLvi kfsb853WtFvr4yaXYNsbK GwWVbbSID9R74ex0E0VSH gQDNwVDL0gKA2 kJ1xfQqudtptuORxfBdft vMeuOuvYKcdEZgpG946YG ObiPooDxMFOeh7D6NeLkr 8SKNubWdvEN2x vNDlPDezQd6otAzheGyaX L5uHWJkcggmr366LkRfu3 riIXNjnPOmQOsyPPG6E15 ml3J6PVTtYMBc NAZ0dHY4tG1hwEyydqjbe GVmdDsgdmVydGljYWwtYW srG145TKJmtSlpTb7RBhv 4X2TfLpi7HZBt tCzvXI5fjLBdTFfmLx7av SvddNdjZU9cKTVigwwaw6 10GsAdq9lqDUElbKNqLRh mFLI3N05gh4K9 IESeRBYzFQS9uDQ6mP9rq GlnbjogbGVmdDsgdmVydG rvUUyrLWzeN746SKYrsCl nPlBheWVyOjwv dGQ+NR94xj06J6IyZupjJ in2VHEjFSQ9kPQ7yG7pGQ HoRClna0D2dRP2V3GghhZ bae1zd6tcEKEv ZTo (more content not included)... Normal [facility] QuantiFERON-TB Gold Pluson 0 11-10-2023 QuantiFERON-TB Gold Plus Negative Invalid Interpretation Code Negative [facility] Comment on above: Result Comment: No r esponse to M tuberculosis antigens detected. Infection with M tuberculosis is unlikely, but high risk individuals should be considered for additional testing (ATS/IDSA/CDC Clinical Practice Guidelines, 2017). The reference range is an Antigen minus Nil result of <0.35 IU/mL. Chemiluminescence immunoassay methodology Performed At: [address] [id number] Yue Garza PhD Ph:[phone] Performed By: #### 2 578598, [id number], 63741500, 60253493, 0465758, 39932619, [id number], [id number], [id number] #### [facility] (DEFAULT) [address] [place] [address] QuantiFERON Incubation Incubation performed. Invalid Interpretation Code [facility] Comment on above: Result Comment: Perf ormed At: [address] [id number] Yue Garza PhD Ph:[phone] Performed By: #### 2 451775, 14172991, 66864489, 13208910, 6794437, 69426096, 3120136299, [id number], [id number] #### [facility] (DEFAULT) [address] [place] [address] HBSab Qnt LCon 11-09-2023 Hep B Surf Ab Quant LC 14.0 mIU/mL Invalid Interpretation Code Immunity>9.9 [facility] Comment on above: Result Comment: Stat us of Immunity Anti-HBs Level Inconsistent with Immunity 0.0 - 9.9 Consistent with Immunity >9.9 Effective November 27, 2023 the reference interval will be changing to: Immunity >10 Performed At: [address] [id number] Yue Garza PhD Ph:[phone] Performed By: #### 2 055396, 62565422, 07680818, 47078806, 2646491, 17572861, [id number], [id number], [id number] #### [facility] (DEFAULT) [address] [place] [address] Hep B Core Ab, Tot LCon 06- Hep B Core Ab, Tot LC Negative Invalid Interpretation Code Negative [facility] Comment on above: Result Comment: Perf ormed At: [address] [id number] Yue Garza PhD Ph:[phone] Performed By: #### 2 174509, 04676524, 92065198, 25903216, 1869758, 60461886, [id number], [id number], [id number] #### [facility] (DEFAULT) [address] [place] [address] IGG Qn LCon 11-09-2023 Immunoglobulin G, Qn, Serum LC 1755 mg/dL High 603-1613 [facility] Comment on above: Result Comment: Perf ormed At: [address] [id number] Yue Garza PhD Ph:[phone] Performed By: #### 2 502211, 62989687, 03842985, 85974289, 7471446, 93092856, 8261857906, [id number], [id number] #### [facility] (DEFAULT) [address] [place] [address] IGM Qn LCon 11-09-2023 Immunoglobulin M, Qn, Serum LC 70 mg/dL Invalid Interpretation Code 20-172 [facility] Comment on above: Result Comment: Perf ormed At: [address] [id number] Yue Garza PhD Ph:[phone] Performed By: #### 2 525021, 21441676, 93135663, 21776416, 0450040, 69385461, [id number], [id number], [id number] #### [facility] (DEFAULT) [address] [place] [address] .Auto Diff 11-08-2023 Auto [place] % 8 % Normal 06-09 [facility] Comment on above: Performed By: #### 2 704166, 48905674, 55714706, 60551373, 7089219, 96498921, 6160407110, [id number], [id number] #### [facility] (DEFAULT) [address] [place] [address] Baso Abs# 0.1 x10 Normal 0.0-0.2 [facility] Comment on above: Performed By: #### 2 668997, 48375689, 45858577, 13016213, 0565909, 48290443, 9275236207, [id number], [id number] #### [facility] (DEFAULT) [address] [place] [address] Basophils/100 WBC (Bld) 1.1 % Normal 0.2-2.0 [facility] Comment on above: Performed By: #### 2 960211, 31750544, 35390971, 70762363, 4905906, 50771061, 9473275788, [id number], [id number] #### [facility] (DEFAULT) [address] [place] [address] Eos Abs# 0.3 x10 Normal 0.0-0.4 [facility] Comment on above: Performed By: #### 2 975631, 84485422, 79883643, 65685513, 2546530, 99926071, 8224735142, 8764477010, [id number] #### [facility] (DEFAULT) [address] [place] [address] Eosinophils/100 WBC (Bld) 3.0 % Normal 0.9-4.0 [facility] Comment on above: Performed By: #### 2 406576, 61276610, 71978210, 53054138, 8600539, 09279014, 1326903511, 1980349238, [id number] #### [facility] (DEFAULT) [address] [place] [address] Lymph Abs# 2.3 x10 Normal 1.3-2.9 [facility] Comment on above: Performed By: #### 2 568978, 56116437, 26259639, 30985823, 6347834, 94910139, 7679258899, 6001535344, [id number] #### [facility] (DEFAULT) [address] [place] [address] Lymphocytes/100 WBC (Bld) 20 % Normal 14-48 [facility] Comment on above: Performed By: #### 2 745244, 65264887, 53838228, 21641459, 7316421, 22117435, 3822252698, 8510686367, [id number] #### [facility] (DEFAULT) [address] [place] [address] [place] Abs# 0.9 x10 High 0.0-0.8 [facility] Comment on above: Performed By: #### 2 905944, 10364613, 04136289, 04815460, 1857837, 89497214, 8111353368, 6531789540, [id number] #### [facility] (DEFAULT) [address] [place] [address] Neut Abs# 7.6 x10 Normal 1.5-9.2 [facility] Comment on above: Performed By: #### 2 718555, 04359934, 04740157, 45961544, 7853569, 40815581, 7843340452, 7654887660, [id number] #### [facility] (DEFAULT) [address] [place] [address] Neutrophils/100 WBC (Bld) 68 % Normal 44-88 [facility] Comment on above: Performed By: #### 2 193963, 36559545, 62000304, 70144368, 6383732, 62166191, 8814441525, 9843925482, [id number] #### [facility] (DEFAULT) [address] [place] [address] CBC w/ Auto Diffon Erythrocyte distribution width (RBC) [Ratio] 13.7 % Normal 11.5-15.0 [facility] Comment on above: Performed By: #### 2 474204, 27785310, 32079391, 84989768, 9260096, 72317687, 5165990173, 8693418400, [id number] #### [facility] (DEFAULT) [address] [place] [address] Hematocrit (Bld) [Volume fraction] 40.8 % Normal 34.8-51.9 [facility] Comment on above: Performed By: #### 2 908426, 34308675, 13631188, 42714531, 3206576, 23604210, 0581906599, 4783882818, [id number] #### [facility] (DEFAULT) [address] [place] [address] Hemoglobin (Bld) [Mass/Vol] 13.3 g/dL Normal 11.8-17.7 [facility] Comment on above: Performed By: #### 2 285433, 40565353, 77769407, 92738302, 0999675, 73630202, 6473188433, 1316837383, [id number] #### [facility] (DEFAULT) [address] [place] [address] Man Diff? Auto Invalid Interpretation Code [facility] [facility] Comment on above: Performed By: #### 2 702954, 07340994, 54193334, 62930038, 6735215, 90524976, 7062301178, 7460737186, [id number] #### [facility] (DEFAULT) [address] [place], [place] [address] MCH (RBC) [Entitic mass] 29 pg Normal 24-34 [facility] Comment on above: Performed By: #### 2 374573, 85141416, 76148026, 66426866, 1511774, 32067714, 4933872626, 4853583877, [id number] #### [facility] (DEFAULT) [address] [place] [address] MCHC (RBC) [Mass/Vol] 32 g/dL Normal 26-37 [facility] Comment on above: Performed By: #### 2 421055, 06559221, 03862469, 63294866, 9500536, 78947925, 8236563253, 3261395317, [id number] #### [facility] (DEFAULT) [address] [place] [address] MCV (RBC) [Entitic vol] 90 fL Normal 81-100 [facility] Comment on above: Performed By: #### 2 703505, 59679877, 11234095, 98646603, 3180080, 11689388, 9518417521, 5005018980, [id number] #### [facility] (DEFAULT) [address] [place] [address] Platelet 405 x10 Normal 138-427 [facility] Comment on above: Performed By: #### 2 337843, 56856299, 41449244, 68291669, 5299767, 48308459, 7947082214, 2957771805, [id number] #### [facility] (DEFAULT) [address] [place] [address] Platelet mean volume (Bld) [Entitic vol] 8.6 fL Normal 6.3-10.2 [facility] Comment on above: Performed By: #### 2 450098, 77927065, 34421564, 03759050, 0621404, 14934943, 4449092304, 8728014565, 52650828190 #### [facility] (DEFAULT) [address] [place] [address] RBC 4.53 x10 Normal 3.70-5.30 [facility] Comment on above: Performed By: #### 2 871416, 24613481, 07554558, 42726707, 6148158, 19021792, 8001262764, 4153436095, 40144465747 #### [facility] (DEFAULT) [address] [place] [address] WBC 11.3 x10 High 3.5-10.5 [facility] Comment on above: Performed By: #### 2 188451, 02856951, 10311901, 74677068, 9903065, 06714185, 0338889622, 6887617641, [id number] #### [facility] (DEFAULT) [address] [place] [address] Standardon 11-08-2023 eGFR Non AA >60 Invalid Interpretation Code [facility] Comment on above: Performed By: #### 2 007143, 39029628, 79340411, 62098389, 7736624, 05247193, 9580276288, 5403466738, [id number] #### [facility] (DEFAULT) [address] [place] [address] eGFR AA >60 Invalid Interpretation Code [facility] Comment on above: Performed By: #### 2 780561, 99428734, 78609713, 99114539, 2819083, 67717393, 9801039524, 2030378349, 10278250844 #### [facility] (DEFAULT) [address] [place], [place] [address] Albumin [Mass/Vol] 4.1 g/dL Normal 3.5-5.0 [facility] Comment on above: Performed By: #### 2 372057, 30801759, 73065170, 85437885, 6495559, 39603137, 1362119270, 8842781346, 53370694573 #### [facility] (DEFAULT) [address] [place], [place] [address] Albumin/Globulin [Mass ratio] 1.0 {ratio} Low 1.4-2.6 [facility] Comment on above: Performed By: #### 2 036788, 67659274, 22545458, 10594165, 8186095, 02573381, 1840188180, 2837738164, 02610775085 #### [facility] (DEFAULT) [address] [place] [address] Alk Phos 87 IU/L Normal 32-91 [facility] Comment on above: Performed By: #### 2 051839, 53674258, 77167615, 22595101, 4269628, 69335847, 0912327589, 1170613578, 43795496963 #### [facility] (DEFAULT) [address] [place] [address] ALT [Catalytic activity/Vol] 16.0 U/L Low 17.0-63.0 [facility] Comment on above: Performed By: #### 2 371645, 43630927, 46760437, 44578290, 5362490, 05099782, 6772488261, 7085136145, 64938055294 #### [facility] (DEFAULT) [address] [place] [address] Anion gap [Moles/Vol] 9.7 mmol/L Normal 5.0-19.0 [facility] Comment on above: Performed By: #### 2 286752, 34638721, 16665396, 53382235, 4125058, 61456725, 3687898970, 9241595488, 85239007648 #### [facility] (DEFAULT) [address] [place] [address]56 AST [Catalytic activity/Vol] 30 U/L Normal 15-41 [facility] Comment on above: Performed By: #### 2 146270, 99048339, 71348009, 33711969, 9450419, 74788523, 0213830279, 6441282196, 37602549880 #### [facility] (DEFAULT) [address] [place] [address] Bili Total 0.3 mg/dL Normal 0.3-1.2 [facility] Comment on above: Performed By: #### 2 820512, 49336281, 07213693, 46097444, 2285647, 25438600, 4203153850, 7197413287, 34472088328 #### [facility] (DEFAULT) [address] [place] [address] Calcium [Mass/Vol] 9.0 mg/dL Normal 8.9-10.3 [facility] Comment on above: Performed By: #### 2 294964, 84173316, 56642098, 64781720, 1703329, 74461015, 2476308961, 6499254914, 42710638422 #### [facility] (DEFAULT) [address] [place] [address] Chloride [Moles/Vol] 104 mmol/L Normal 101-111 [facility] Comment on above: Performed By: #### 2 956304, 59678592, 60778006, 50313441, 0122999, 77057269, 0068131951, 4935516178, 56063764041 #### [facility] (DEFAULT) [address] [place] [address] CO2 [Moles/Vol] 26 mmol/L Normal 21-32 [facility] Comment on above: Performed By: #### 2 828035, 23410307, 69277090, 38465691, 3127577, 73779354, 1093603959, 6777142962, 88464429409 #### [facility] (DEFAULT) [address] [place] [address] Creatinine [Mass/Vol] 1.01 mg/dL Normal 0.90-1.30 [facility] Comment on above: Performed By: #### 2 824657, 56643349, 29784621, 28221719, 6111332, 35958780, 1555077916, 8671536206, 74210686752 #### [facility] (DEFAULT) [address] [place] [address] Globulin (S) [Mass/Vol] 4.0 g/dL Normal 1.5-4.3 [facility] Comment on above: Performed By: #### 2 551092, 02949994, 37840871, 35580952, 4564931, 37675211, 2345489479, 3447465885, 51554274024 #### [facility] (DEFAULT) [address] [place] [address] 11573 Glucose [Mass/Vol] 84.0 mg/dL Normal 74.0-118.0 [facility] Comment on above: Performed By: #### 2 177419, 24802221, 78853790, 87065404, 0886539, 62415592, 2415335900, 5492287447, 24544570831 #### [facility] (DEFAULT) [address] [place] [address]6975 Osmolality 271 mOsm/L Invalid Interpretation Code [facility] Comment on above: Performed By: #### 2 284943, 29575862, 30567683, 69321270, 2214140, 39925414, 5575347670, 8511869175, 47721464744 #### [facility] (DEFAULT) [address] [place] [address] Potassium [Moles/Vol] 3.7 mmol/L Normal 3.6-5.1 [facility] Comment on above: Performed By: #### 2 711338, 67642184, 04948127, 39982741, 6126903, 46677674, 3360193916, 8342806026, 71301380324 #### [facility] (DEFAULT) [address] [place] [address]2629 Protein [Mass/Vol] 8.1 g/dL Normal 6.5-8.1 [facility] Comment on above: Performed By: #### 2 038789, 79047232, 45556110, 34294818, 9403557, 44588227, 9372333538, 3222954915, 17427210021 #### [facility] (DEFAULT) [address] [place] [address]40 Sodium [Moles/Vol] 136.0 mmol/L Normal 136.0-144.0 [facility] Comment on above: Performed By: #### 2 519391, 05818189, 23429551, 54729844, 4199555, 05338315, 5431136797, 8482385739, 02370825600 #### [facility] (DEFAULT) [address] [place] [address] 48580 Urea nitrogen [Mass/Vol] 13 mg/dL Normal 8-26 [facility] Comment on above: Performed By: #### 2 805272, 17486752, 17155437, 63594791, 5949918, 72831024, 5393764832, 0589303617, 97235301509 #### [facility] (DEFAULT) [address] [place] [address]111 Urea nitrogen/Creatinine [Mass ratio] 12.8 mg/mg Normal 4.6-16.2 [facility] Comment on above: Performed By: #### 2 621515, 05051968, 92153064, 43084554, 3938029, 30348038, 0705565515, 2834447268, 46423883047 #### [facility] (DEFAULT) [address] [place] [address] 21137 Extra SSTon 11-08-2023 Tube Collected Yes Invalid Interpretation Code [facility] Comment on above: Performed By: #### 2 349912, 97753512, 27005002, 23742197, 2409080, 64894604, 1581447601, 5512822285, 31085777921 #### [facility] (DEFAULT) [address] [place] [address] 96966 Provider Orderson 11-08-2023 Provider Orders [id number] Normal [facility] Vit D25 OHon 11-08-2023 Vitamin D 25 OH 34 ng/mL Normal 30-100 [facility] Comment on above: Performed By: #### 2 019686, 94245446, 29427834, 18719678, 3845004, 90337112, 4853552975, 9192879102, 43079517898 #### [facility] (DEFAULT) [address] [place] [address] 11136 BMPon 03-08-2022 Anion gap [Moles/Vol] 11 mmol/L 9 - 17 mmol/L [facility] Calcium [Mass/Vol] 9.3 mg/dL 8.6 - 10. 4 mg/dL [facility] Chloride [Moles/Vol] 102 mmol/L 98 - 107 mmol/L [facility] CO2 [Moles/Vol] 28 mmol/L 20 - 31 mmol/L [facility] Creatinine [Mass/Vol] 0.9 mg/dL 0.7 - 1.2 mg/dL [facility] GFR/1.73 sq M.predicted MDRD (S/P/Bld) [Vol rate/Area] - PINF [facility] Comment on above: Effective Feb 28, 2022 These results are not intended for use in patients <18 years of age. eGFR results are calculated without a race factor using the 2020 CKD-EPI equation. Careful clinical correlation is recommended, particularly when comparing to results calculated using previous equations. The CKD-EPI equation is less accurate in patients with extremes of muscle mass, extra-renal metabolism of creatine, excessive creatine ingestion, or following therapy that affects renal tubular secretion. Glucose [Mass/Vol] 104 mg/dL High 70 - 99 mg/dL [facility] Interpretation and review of laboratory results Abnormal [facility] Potassium [Moles/Vol] 4.0 mmol/L 3.7 - 5.3 mmol/L [facility] Sodium [Moles/Vol] 141 mmol/L 135 - 144 mmol/L [facility] Urea nitrogen (BldV) [Mass/Vol] 12 mg/dL 6 - 20 mg/dL [facility] Basic Metabolic Profon 03-08 Anion gap [Moles/Vol] 11 mmol/L Normal 9-17 [facility] Comment on above: Performed By: #### B MARCI, CDP #### [facility] [address] [facility] [place] [address] Single Wire Saw Operator: Deng Kerr DO Calcium [Mass/Vol] 9.3 mg/dL Normal 8.6-10.4 [facility] Comment on above: Performed By: #### B MARCI, CDP #### [facility] [address] [facility] [place], [place] [address] Single Wire Saw Operator: Deng Kerr DO Chloride [Moles/Vol] 102 mmol/L Normal 98-107 [facility] Comment on above: Performed By: #### B MARCI, CDP #### [facility] [address] [facility] [place] [address] Single Wire Saw Operator: Deng Kerr DO CO2 [Moles/Vol] 28 mmol/L Normal 20-31 [facility] Comment on above: Performed By: #### B MARCI, CDP #### [facility] [address] [facility] [place] [address] Single Wire Saw Operator: Deng Kerr DO Creatinine [Mass/Vol] 0.90 mg/dL Normal 0.70-1.20 [facility] Comment on above: Performed By: #### B MARCI, CDP #### [facility] [address] [facility] [place] [address] Single Wire Saw Operator: Deng Kerr DO GFR/1.73 sq M.predicted among non-blacks MDRD (S/P/Bld) [Vol rate/Area] mL/min/{1.73_m2} Normal >60 [facility] Comment on above: Result Comment: Effective Feb 28, 2022 These results are not intended for use in patients <18 years of age. eGFR results are calculated without a race factor using the 2020 CKD-EPI equation. Careful clinical correlation is recommended, particularly when comparing to results calculated using previous equations. The CKD-EPI equation is less accurate in patients with extremes of muscle mass, extra-renal metabolism of creatine, excessive creatine ingestion, or following therapy that affects renal tubular secretion. Performed By: #### B MARCI, CDP #### [facility] [address] [facility] [place] [address] Single Wire Saw Operator: Deng Kerr DO Glucose [Mass/Vol] 104 mg/dL High 70-99 [facility] Comment on above: Performed By: #### B MARCI, CDP #### [facility] [address] [facility] [place] [address] Single Wire Saw Operator: Deng Kerr DO Potassium [Moles/Vol] 4.0 mmol/L Normal 3.7-5.3 [facility] Comment on above: Performed By: #### B MARCI, CDP #### [facility] [address] [facility] [place] [address] Single Wire Saw Operator: Deng Kerr DO Sodium [Moles/Vol] 141 mmol/L Normal 135-144 [facility] Comment on above: Performed By: #### B MARCI, CDP #### [facility] [address] [facility] [place] [address] Single Wire Saw Operator: Deng Kerr DO Urea nitrogen [Mass/Vol] 12 mg/dL Normal 6-20 [facility] Comment on above: Performed By: #### B MARCI, CDP #### [facility] [address] [facility] [place] [address] Single Wire Saw Operator: Deng Kerr DO CBC with Auto Differentialon 03-08-2022 Absolute Eos # 0.10 [facility] Absolute Lymph # 1.[address] [facility] Absolute [place] # 0.70 [facility] Basophils (Bld) [#/Vol] 0.10 10*3/uL [facility] Basophils/100 WBC (Bld) 1 % 0 - 2 % [facility] Eosinophils/100 WBC (Bld) 1 % 0 - 4 % [facility] Hematocrit (Bld) [Volume fraction] 43.2 % 41 - 53 % [facility] Hemoglobin (Bld) [Mass/Vol] 14.2 g/dL 13.5 - 17.5 g/dL [facility] Interpretation and review of laboratory results Abnormal [facility] Lymphocytes/100 WBC (Bld) 16 % Low 24 - 44 % [facility] MCH (RBC) [Entitic mass] 29.8 pg 26 - 34 pg [facility] MCHC (RBC) [Mass/Vol] 32.9 g/dL 31 - 37 g/dL [facility] MCV (RBC) [Entitic vol] 90.3 fL 80 - 100 fL [facility] Monocytes/100 WBC (Bld) 6 % 1 - 7 % [facility] Platelet distribution width (Bld) [Ratio] 14.0 % 11.5 - 14.9 % [facility] Platelet mean volume (Bld) [Entitic vol] 7.6 fL 6 - 12 fL [facility] Platelets (Bld) [#/Vol] 314 10*3/uL [facility] RBC (Bld) [#/Vol] 4.78 10*6/uL 4.5 - 5.9 m/uL [facility] Segmented neutrophils/100 WBC (Bld) 76 % High 36 - 66 % [facility] Segs Absolute 8.70 [facility] WBC (Bld) [#/Vol] 11.4 10*3/uL High [facility] CBC with Diffon 03-08-2022 Abs. Basophil 0.10 k/uL Normal 0.0-0.2 [facility] Comment on above: Performed By: #### B MARCI, CDP #### [facility] [address] [place] [address] Single Wire Saw Operator: Deng Kerr DO Abs.Neutrophil (Seg) 8.70 k/uL Normal 1.3-9.1 [facility] Comment on above: Performed By: #### B MARCI, CDP #### [facility] [address] [place] [address] Single Wire Saw Operator: Deng Kerr DO Basophils/100 WBC (Bld) 1 % Normal 0-2 [facility] Comment on above: Performed By: #### B MARCI, CDP #### [facility] [place] [address] Single Wire Saw Operator: Deng Kerr DO Eosinophils (Bld) [#/Vol] 0.10 10*3/uL Normal 0.0-0.4 [facility] Comment on above: Performed By: #### B MARCI, CDP #### [facility] [address] [place] [address] Single Wire Saw Operator: Deng Kerr DO Eosinophils/100 WBC (Bld) 1 % Normal 0-4 [facility] Comment on above: Performed By: #### B MARCI, CDP #### [facility] [address] [place] [address] Single Wire Saw Operator: Deng Kerr DO Erythrocyte distribution width (RBC) [Ratio] 14.0 % Normal 11.5-14.9 [facility] Comment on above: Performed By: #### B MARCI, CDP #### [facility] [address] [place] [address] Single Wire Saw Operator: Deng Kerr DO Hematocrit (Bld) [Volume fraction] 43.2 % Normal 41-53 [facility] Comment on above: Performed By: #### Isaac COVARRUBIAS, CDP #### [facility] [address] [place] [address] Single Wire Saw Operator: Deng Kerr DO Hemoglobin (Bld) [Mass/Vol] 14.2 g/dL Normal 13.5-17.5 [facility] Comment on above: Performed By: #### Isaac COVARRUBIAS, CDP #### [facility] [address] [place] [address] Single Wire Saw Operator: Deng Kerr DO Lymphocytes (Bld) [#/Vol] 1.80 10*3/uL Normal 1.0-4.8 [facility] Comment on above: Performed By: #### B MARCI, CDP #### [facility] [address] [place] [address] Single Wire Saw Operator: Deng Kerr DO Lymphocytes/100 WBC (Bld) 16 % Low 24-44 [facility] Comment on above: Performed By: #### Isaac COVARRUBIAS, CDP #### [facility] [address] [place] [address] Single Wire Saw Operator: Deng Kerr DO MCH (RBC) [Entitic mass] 29.8 pg Normal 26-34 [facility] Comment on above: Performed By: #### B MARCI, CDP #### [facility] [place] [address] Single Wire Saw Operator: Deng Kerr DO MCHC (RBC) [Mass/Vol] 32.9 g/dL Normal 31-37 [facility] Comment on above: Performed By: #### B MARCI, CDP #### [facility] [place] [address] Single Wire Saw Operator: Deng Kerr DO MCV (RBC) [Entitic vol] 90.3 fL Normal 80-100 [facility] Comment on above: Performed By: #### B MARCI, CDP #### [facility] [place] [address] Single Wire Saw Operator: Deng Kerr DO Monocytes (Bld) [#/Vol] 0.70 10*3/uL Normal 0.1-1.3 [facility] Comment on above: Performed By: #### B MARCI, CDP #### [facility] [place] [address] Single Wire Saw Operator: Deng Kerr DO Monocytes/100 WBC (Bld) 6 % Normal 1-7 [facility] Comment on above: Performed By: #### B MARCI, CDP #### [facility] [place] [address] Single Wire Saw Operator: Deng Kerr DO Neutrophil (Seg) 76 % High 36-66 [facility] Comment on above: Performed By: #### B MARCI, CDP #### [facility] [place] [address] Single Wire Saw Operator: Deng Kerr DO Platelet mean volume (Bld) [Entitic vol] 7.6 fL Normal 6.0-12.0 [facility] Comment on above: Performed By: #### Isaac COVARRUBIAS, CDP #### [facility] [address] [place] [address] Single Wire Saw Operator: Deng Kerr DO Platelets (Bld) [#/Vol] 314 10*3/uL Normal 150-450 [facility] Comment on above: Performed By: #### Isaac COVARRUBIAS, CDP #### [facility] [address] [facility] [place] [address] Single Wire Saw Operator: Deng Kerr DO RBC (Bld) [#/Vol] 4.78 10*6/uL Normal 4.5-5.9 [facility] Comment on above: Performed By: #### Isaac COVARRUBIAS, CDP #### [facility] [address] [facility] [place] [address] Single Wire Saw Operator: Deng Kerr DO WBC (Bld) [#/Vol] 11.4 10*3/uL High 3.5-11.0 [facility] Comment on above: Performed By: #### Isaac COVARRUBIAS, CDP #### [facility] [address] [place] [address] Single Wire Saw Operator: Deng Kerr DO POC Glucose Fingerstickon Glucose [Mass/Vol] 169 mg/dL High 75 - 110 mg/dL [facility] Interpretation and review of laboratory results Abnormal [facility] Glucose [Mass/Vol] 162 mg/dL High 75 - 110 mg/dL [facility] Interpretation and review of laboratory results Abnormal [facility] POC Glucose Fingerstickon Glucose [Mass/Vol] 181 mg/dL High 75 - 110 mg/dL [facility] Interpretation and review of laboratory results Abnormal [facility] Glucose [Mass/Vol] 180 mg/dL High 75 - 110 mg/dL [facility] Interpretation and review of laboratory results Abnormal [facility] Glucose [Mass/Vol] 202 mg/dL High 75 - 110 mg/dL [facility] Interpretation and review of laboratory results Abnormal [facility] Glucose [Mass/Vol] 146 mg/dL High 75 - 110 mg/dL [facility] Interpretation and review of laboratory results Abnormal [facility] Glucose [Mass/Vol] 158 mg/dL High 75 - 110 mg/dL [facility] Interpretation and review of laboratory results Abnormal [facility] MRI BRAIN W WO CONTRASTon 1. No acute intracranial abnormality. No acute infarct. 2. T2 FLAIR hyperintense lesions are seen involving the supratentorial and infratentorial compartments compatible with a clinical diagnosis of multiple sclerosis. There appear to be several new lesions when compared to the MRI from 2016 including a lesion within the left angle. However, no associated contrast enhancement is seen to suggest active demyelination. [facility] RIS CONSOLIDATED EXAMINATION: MRI OF THE BRAIN WITHOUT AND WITH CONTRAST 02/14/2022 10:09 am TECHNIQUE: Multiplanar multisequence MRI of the head/brain was performed without and with the administration of intravenous contrast. COMPARISON: 04/29/2016. HISTORY: ORDERING SYSTEM PROVIDED HISTORY: eval for MS lesions TECHNOLOGIST PROVIDED HISTORY: eval for MS lesions Decision Support Exception - unselect if not a suspected or confirmed emergency medical condition->Emergency Medical Condition (MA) Reason for Exam: Evaluate for MS Lesions - Bladder problem and Difficulty Walking. Initial evaluation. FINDINGS: INTRACRANIAL STRUCTURES/VENTRICLES : There is no evidence of an acute infarct. There are areas of T2 FLAIR hyperintensity involving the periventricular and subcortical white matter bilaterally. There appear to be several new lesions when compared the prior exam including 1 within the left angle. A T2 hyperintense focus within the right brachium pontis appears similar to the prior exam. No associated contrast enhancement is seen. No abnormal enhancement is seen within the brain. There is minimal global parenchymal volume loss. Otherwise, the size and configuration of the ventricles and sulci appear normal. The normal signal voids within the major intracranial vessels appear maintained. No evidence of an acute intracranial hemorrhage. Sequelae of a remote hemorrhage involving the mesial right frontal lobe appears unchanged. ORBITS: The visualized portion of the orbits demonstrate no acute abnormality. SINUSES: Scattered mucosal thickening of the paranasal sinuses. Trace opacification of the mastoid air cells bilaterally. BONES/SOFT TISSUES: The bone marrow signal intensity appears normal. The soft tissues demonstrate no acute abnormality. [facility] Kush Giordano MD - 02/14/2022 EXAMINATION: MRI OF THE BRAIN WITHOUT AND WITH CONTRAST 02/14/2022 10:09 am TECHNIQUE: Multiplanar multisequence MRI of the head/brain was performed without and with the administration of intravenous contrast. COMPARISON: 04/29/2016. HISTORY: ORDERING SYSTEM PROVIDED HISTORY: eval for MS lesions TECHNOLOGIST PROVIDED HISTORY: eval for MS lesions Decision Support Exception - unselect if not a suspected or confirmed emergency medical condition->Emergency Medical Condition (MA) Reason for Exam: Evaluate for MS Lesions - Bladder problem and Difficulty Walking. Initial evaluation. FINDINGS: INTRACRANIAL STRUCTURES/VENTRICLES : There is no evidence of an acute infarct. There are areas of T2 FLAIR hyperintensity involving the periventricular and subcortical white matter bilaterally. There appear to be several new lesions when compared the prior exam including 1 within the left angle. A T2 hyperintense focus within the right brachium pontis appears similar to the prior exam. No associated contrast enhancement is seen. No abnormal enhancement is seen within the brain. There is minimal global parenchymal volume loss. Otherwise, the size and configuration of the ventricles and sulci appear normal. The normal signal voids within the major intracranial vessels appear maintained. No evidence of an acute intracranial hemorrhage. Sequelae of a remote hemorrhage involving the mesial right frontal lobe appears unchanged. ORBITS: The visualized portion of the orbits demonstrate no acute abnormality. SINUSES: Scattered mucosal thickening of the paranasal sinuses. Trace opacification of the mastoid air cells bilaterally. BONES/SOFT TISSUES: The bone marrow signal intensity appears normal. The soft tissues demonstrate no acute abnormality. IMPRESSION: 1. No acute intracranial abnormality. No acute infarct. 2. T2 FLAIR hyperintense lesions are seen involving the supratentorial and infratentorial compartments compatible with a clinical diagnosis of multiple sclerosis. There appear to be several new lesions when compared to the MRI from 2016 including a lesion within the left angle. However, no associated contrast enhancement is seen to suggest active demyelination. [employer] Phone: MRI BRAIN W WO CONTRASTOrder ed By: Kush Giordano on 02-14-2022 [employer] Phone: MRI CERVICAL SPINE W WO CONT RASTon 02-14-2022 1. There is suggestion of T2 hyperintensity within the left dorsal aspect of the cord at the lower C2 level without associated enhancement. 2. No additional area of abnormal cord signal. 3. Straightening of the normal cervical lordosis without spondylolisthesis. 4. No significant spinal canal stenosis or neural foraminal narrowing. [facility] EXAMINATION: MRI OF THE CERVICAL SPINE WITHOUT AND WITH CONTRAST 02/14/2022 10:09 am: TECHNIQUE: Multiplanar multisequence MRI of the cervical spine was performed without and with the administration of intravenous contrast. COMPARISON: 08/19/2015. HISTORY: ORDERING SYSTEM PROVIDED HISTORY: eval for MS lesions TECHNOLOGIST PROVIDED HISTORY: eval for MS lesions Decision Support Exception - unselect if not a suspected or confirmed emergency medical condition->Emergency Medical Condition (MA) Reason for Exam: Evaluate for MS Lesions - Bladder problem and Difficulty Walking. Initial evaluation. FINDINGS: BONES/ALIGNMENT: The vertebral body heights appear maintained. Straightening of the normal cervical lordosis. No evidence of spondylolisthesis. The bone marrow signal demonstrates no acute abnormality. SPINAL CORD: There appears to be T2 hyperintensity within the left dorsal aspect of the cord at the lower C2 level without associated enhancement. No additional focus of abnormal cord signal is confidently identified. No abnormal enhancement is seen of the cervical cord. SOFT TISSUES: No paraspinal mass identified. C2-C3: There is no significant disc bulge, spinal canal stenosis or neural foraminal narrowing. C3-C4: There is no significant disc bulge, spinal canal stenosis or neural foraminal narrowing. C4-C5: There is no significant disc bulge, spinal canal stenosis or neural foraminal narrowing. C5-C6: There is no significant disc bulge, spinal canal stenosis or neural foraminal narrowing. C6-C7: There is no significant disc bulge, spinal canal stenosis or neural foraminal narrowing. C7-T1: There is no significant disc bulge, spinal canal stenosis or neural foraminal narrowing. [facility] Kush Obando MD - 02/14/2022 EXAMINATION: MRI OF THE CERVICAL SPINE WITHOUT AND WITH CONTRAST 02/14/2022 10:09 am: TECHNIQUE: Multiplanar multisequence MRI of the cervical spine was performed without and with the administration of intravenous contrast. COMPARISON: 08/19/2015. HISTORY: ORDERING SYSTEM PROVIDED HISTORY: eval for MS lesions TECHNOLOGIST PROVIDED HISTORY: eval for MS lesions Decision Support Exception - unselect if not a suspected or confirmed emergency medical condition->Emergency Medical Condition (MA) Reason for Exam: Evaluate for MS Lesions - Bladder problem and Difficulty Walking. Initial evaluation. FINDINGS: BONES/ALIGNMENT: The vertebral body heights appear maintained. Straightening of the normal cervical lordosis. No evidence of spondylolisthesis. The bone marrow signal demonstrates no acute abnormality. SPINAL CORD: There appears to be T2 hyperintensity within the left dorsal aspect of the cord at the lower C2 level without associated enhancement. No additional focus of abnormal cord signal is confidently identified. No abnormal enhancement is seen of the cervical cord. SOFT TISSUES: No paraspinal mass identified. C2-C3: There is no significant disc bulge, spinal canal stenosis or neural foraminal narrowing. C3-C4: There is no significant disc bulge, spinal canal stenosis or neural foraminal narrowing. C4-C5: There is no significant disc bulge, spinal canal stenosis or neural foraminal narrowing. C5-C6: There is no significant disc bulge, spinal canal stenosis or neural foraminal narrowing. C6-C7: There is no significant disc bulge, spinal canal stenosis or neural foraminal narrowing. C7-T1: There is no significant disc bulge, spinal canal stenosis or neural foraminal narrowing. IMPRESSION: 1. There is suggestion of T2 hyperintensity within the left dorsal aspect of the cord at the lower C2 level without associated enhancement. 2. No additional area of abnormal cord signal. 3. Straightening of the normal cervical lordosis without spondylolisthesis. 4. No significant spinal canal stenosis or neural foraminal narrowing. [employer] Phone: [employer] Phone: MRI LUMBAR SPINE WO CONTRAST on 02-14-2022 No significant spina l canal or neural foraminal stenosis in the lumbar spine. No abnormal cord signal. Annular fissure at L5-S1 disc. RECOMMENDATIONS: Unavailable [facility] EXAMINATION: MRI OF THE LUMBAR SPINE WITHOUT CONTRAST, 02/14/2022 1:41 am TECHNIQUE: Multiplanar multisequence MRI of the lumbar spine was performed without the administration of intravenous contrast. COMPARISON: CT abdomen and pelvis 08/18/2015. HISTORY: ORDERING SYSTEM PROVIDED HISTORY: r/o cauda equina vs MS TECHNOLOGIST PROVIDED HISTORY: r/o cauda equina vs MS Reason for Exam: r/o cauda equina FINDINGS: Motion artifact limits evaluation. BONES/ALIGNMENT: There is normal alignment of the spine. The vertebral body heights are maintained. The bone marrow signal appears unremarkable. SPINAL CORD: The conus terminates normally. SOFT TISSUES: No paraspinal mass identified. L1-L2: There is no significant disc herniation, spinal canal stenosis or neural foraminal narrowing. L2-L3: There is no significant disc herniation, spinal canal stenosis or neural foraminal narrowing. L3-L4: There is no significant disc herniation, spinal canal stenosis or neural foraminal narrowing. L4-L5: There is no significant disc herniation, spinal canal stenosis or neural foraminal narrowing. L5-S1: Annular fissure, disc bulge. There is no spinal canal stenosis or neural foraminal narrowing. [facility] Shivam Salter MD - 02/14/2022 EXAMINATION: MRI OF THE LUMBAR SPINE WITHOUT CONTRAST, 02/14/2022 1:41 am TECHNIQUE: Multiplanar multisequence MRI of the lumbar spine was performed without the administration of intravenous contrast. COMPARISON: CT abdomen and pelvis 08/18/2015. HISTORY: ORDERING SYSTEM PROVIDED HISTORY: r/o cauda equina vs MS TECHNOLOGIST PROVIDED HISTORY: r/o cauda equina vs MS Reason for Exam: r/o cauda equina FINDINGS: Motion artifact limits evaluation. BONES/ALIGNMENT: There is normal alignment of the spine. The vertebral body heights are maintained. The bone marrow signal appears unremarkable. SPINAL CORD: The conus terminates normally. SOFT TISSUES: No paraspinal mass identified. L1-L2: There is no significant disc herniation, spinal canal stenosis or neural foraminal narrowing. L2-L3: There is no significant disc herniation, spinal canal stenosis or neural foraminal narrowing. L3-L4: There is no significant disc herniation, spinal canal stenosis or neural foraminal narrowing. L4-L5: There is no significant disc herniation, spinal canal stenosis or neural foraminal narrowing. L5-S1: Annular fissure, disc bulge. There is no spinal canal stenosis or neural foraminal narrowing. IMPRESSION: No significant spinal canal or neural foraminal stenosis in the lumbar spine. No abnormal cord signal. Annular fissure at L5-S1 disc. RECOMMENDATIONS: Unavailable [employer] Phone: Radiology Study observation (narrative) [employer] Phone: MRI LUMBAR SPINE WO CONTRAST Ordered By: Shivam Salter on 02-14-2022 [employer] Phone: MRI THORACIC SPINE W WO CONT RASTon 02-14-2022 1. T2 hyperintensity within the dorsal aspect of the cord at T11-T12 with associated enhancement. This is compatible with patient's history of multiple sclerosis with active demyelination. 2. No significant spinal canal stenosis or neural foraminal narrowing of the thoracic spine. [facility] EXAMINATION: MRI OF THE THORACIC SPINE WITHOUT AND WITH CONTRAST 02/14/2022 10:09 am TECHNIQUE: Multiplanar multisequence MRI of the thoracic spine was performed without and with the administration of intravenous contrast. COMPARISON: None HISTORY: ORDERING SYSTEM PROVIDED HISTORY: eval for MS exac TECHNOLOGIST PROVIDED HISTORY: eval for MS exac Decision Support Exception - unselect if not a suspected or confirmed emergency medical condition->Emergency Medical Condition (MA) Reason for Exam: Evaluate for MS Lesions - Bladder problem and Difficulty Walking. Initial evaluation. FINDINGS: Motion degrades images limiting evaluation. BONES/ALIGNMENT: The vertebral body heights appear maintained. There is no evidence of spondylolisthesis. The bone marrow signal demonstrates no acute abnormality. SPINAL CORD: There is T2 hyperintensity within the dorsal aspect of the cord at T11-T12. Associated enhancement is seen. No additional focus of abnormal cord signal seen. SOFT TISSUES: No paraspinal mass identified. DEGENERATIVE CHANGES: No significant spinal canal stenosis or neural foraminal narrowing of the thoracic spine. [facility] Kush Giordano MD - 02/14/2022 EXAMINATION: MRI OF THE THORACIC SPINE WITHOUT AND WITH CONTRAST 02/14/2022 10:09 am TECHNIQUE: Multiplanar multisequence MRI of the thoracic spine was performed without and with the administration of intravenous contrast. COMPARISON: None HISTORY: ORDERING SYSTEM PROVIDED HISTORY: eval for MS exac TECHNOLOGIST PROVIDED HISTORY: eval for MS exac Decision Support Exception - unselect if not a suspected or confirmed emergency medical condition->Emergency Medical Condition (MA) Reason for Exam: Evaluate for MS Lesions - Bladder problem and Difficulty Walking. Initial evaluation. FINDINGS: Motion degrades images limiting evaluation. BONES/ALIGNMENT: The vertebral body heights appear maintained. There is no evidence of spondylolisthesis. The bone marrow signal demonstrates no acute abnormality. SPINAL CORD: There is T2 hyperintensity within the dorsal aspect of the cord at T11-T12. Associated enhancement is seen. No additional focus of abnormal cord signal seen. SOFT TISSUES: No paraspinal mass identified. DEGENERATIVE CHANGES: No significant spinal canal stenosis or neural foraminal narrowing of the thoracic spine. IMPRESSION: 1. T2 hyperintensity within the dorsal aspect of the cord at T11-T12 with associated enhancement. This is compatible with patient's history of multiple sclerosis with active demyelination. 2. No significant spinal canal stenosis or neural foraminal narrowing of the thoracic spine. [employer] Work Phone: [employer] Work Phone: No Panel Informationon 02-14 Radiology Study observation (narrative) [facility] Work Phone: POC Glucose Fingerstickon Glucose [Mass/Vol] 156 mg/dL High 75 - 110 mg/dL [facility] Interpretation and review of laboratory results Abnormal [facility] [employer] Glucose [Mass/Vol] 194 mg/dL High 75 - 110 mg/dL [facility] [employer] Interpretation and review of laboratory results Abnormal [facility] [employer] [facility] [employer] Glucose [Mass/Vol] 102 mg/dL 75 - 110 mg/dL [facility] [employer] [facility] C-Reactive Proteinon 022 CRP [Mass/Vol] 7.1 mg/L High 0 - 5 mg/L [facility] Interpretation and review of laboratory results Abnormal [facility] CBC with Auto Differentialon 02-13-2022 Absolute Eos # 0.14 [facility] Absolute Immature Granulocyte 0.04 [facility] Absolute Lymph # 1.68 [facility] Absolute [place] # 1.15 [facility] Basophils (Bld) [#/Vol] 0.05 10*3/uL [facility] Basophils/100 WBC (Bld) 0 % 0 - 2 % [facility] Eosinophils/100 WBC (Bld) 1 % 1 - 4 % [facility] Hematocrit (Bld) [Volume fraction] 45.6 % 40.7 - 50.3 % [facility] Hemoglobin (Bld) [Mass/Vol] 14.6 g/dL 13 - 17 g/dL [facility] Immature granulocytes/100 WBC (Bld) 0 % 0 [facility] Interpretation and review of laboratory results Abnormal [facility] Lymphocytes/100 WBC (Bld) 12 % Low 24 - 43 % [facility] MCH (RBC) [Entitic mass] 29.2 pg 25.2 - 33.5 pg [facility] MCHC (RBC) [Mass/Vol] 32.0 g/dL 28.4 - 34.8 g/dL [facility] MCV (RBC) [Entitic vol] 91.2 fL 82.6 - 102.9 fL [facility] Monocytes/100 WBC (Bld) 8 % 3 - 12 % [facility] NRBC Automated 0.0 0.0 per 100 WBC [facility] Platelet distribution width (Bld) [Ratio] 12.9 % 11.8 - 14.4 % [facility] Platelet mean volume (Bld) [Entitic vol] 10.3 fL 8.1 - 13.5 fL [facility] Platelets (Bld) [#/Vol] 340 10*3/uL [facility] RBC (Bld) [#/Vol] 5.00 10*6/uL 4.21 - 5.7 7 m/uL [facility] Segmented neutrophils/100 WBC (Bld) 79 % High 36 - 65 % [facility] Segs Absolute 10.56 High [facility] WBC (Bld) [#/Vol] 13.6 10*3/uL High [facility] [place] CMP[facility] 02-13-2022 Albumin [Mass/Vol] 4 g/dL 3.5 - 5.2 g/dL [facility] Albumin/Globulin [Mass ratio] 1.1 {ratio} 1 - 2.5 [facility] ALP (Bld) [Catalytic activity/Vol] 101 U/L 40 - 129 U/L [facility] ALT [Catalytic activity/Vol] 18 U/L 5 - 41 U/L [facility] Anion gap [Moles/Vol] 12 mmol/L 9 - 17 mmol/L [facility] AST [Catalytic activity/Vol] 18 U/L NINF - 40 U/L [facility] Bilirubin [Mass/Vol] mg/dL Low 0.3 - 1.2 mg/dL [facility] Calcium [Mass/Vol] 9.6 mg/dL 8.6 - 10. 4 mg/dL [facility] Chloride [Moles/Vol] 101 mmol/L 98 - 107 mmol/L [facility] CO2 [Moles/Vol] 24 mmol/L 20 - 31 mmol/L [facility] Creatinine [Mass/Vol] 1.1 mg/dL 0.7 - 1.2 mg/dL [facility] Free PSA/Total PSA [Mass fraction] 7.8 g/dL 6.4 - 8.3 g/dL [facility] GFR >60 60 - PINF mL/min [facility] GFR Non- >60 60 - PINF mL/min [facility] GFR/1.73 sq M.predicted MDRD (S/P/Bld) [Vol rate/Area] [facility] Comment on above: Average GFR for 30-3 9 years old: 107 mL/min/1.73sq m Chronic Kidney Disease: <60 mL/min/1.73sq m Kidney failure: <15 mL/min/1.73sq m eGFR calculated using average adult body mass. Additional eGFR calculator available at: http://www.[employer]/multiple_crcl_2012.htm Glucose [Mass/Vol] 115 mg/dL High 70 - 99 mg/dL [facility] Interpretation and review of laboratory results Abnormal [facility] Potassium [Moles/Vol] 4.0 mmol/L 3.7 - 5.3 mmol/L [facility] Sodium [Moles/Vol] 137 mmol/L 135 - 144 mmol/L [facility] Urea nitrogen (BldV) [Mass/Vol] 18 mg/dL 6 - 20 mg/dL [facility] Sedimentation Rateon 022 Interpretation and review of laboratory results Abnormal [facility] [employer] Sed Rate 19 High [facility] Vital Signs Date Time Vital Sign Value Performing Clinician Facility 06-26-2024 11:30-0500 Body height 175.3 cm [address]fo [address] [place] [address] 06-26-2024 11:30-0500 Body mass index (BMI) [Ratio] 25.62 kg/m2 Pfo 4 [facility] 06-26-2024 11:30-0500 Body temperature 98.8 [degF] Pfo 4 [facility] 06-26-2024 11:30-0500 Body weight 78.74 kg Pfo 4 [facility] 06-26-2024 11:30-0500 Diastolic blood pressure 67 mm[Hg] Pfo 4 [facility] 06-26-2024 11:30-0500 Heart rate 100 /min Pfo 4 [facility] 06-26-2024 11:30-0500 Respiratory rate 18 /min Pfo 4 [facility] 06-26-2024 11:30-0500 SaO2% (BldA) [Mass fraction] 99 % Pfo 4 [facility] 06-26-2024 11:30-0500 Systolic blood pressure 110 mm[Hg] Pfo 4 [facility] 01-17-2024 08:20-0400 Body height 175.3 cm Pfo 2 [facility] 01-17-2024 08:20-0400 Body mass index (BMI) [Ratio] 24.07 kg/m2 Pfo 2 [facility] 01-17-2024 08:20-0400 Body temperature 97.5 [degF] Pfo [address] [facility] 01-17-2024 08:20-0400 Body weight 73.94 kg Pfo 2 [facility] 01-17-2024 08:20-0400 Diastolic blood pressure 59 mm[Hg] Pfo 2 [facility] 01-17-2024 08:20-0400 Heart rate 63 /min Pfo 2 [facility] 01-17-2024 08:20-0400 Respiratory rate 18 /min Pfo [address] [facility] 01-17-2024 08:20-0400 SaO2% (BldA) [Mass fraction] 100 % Pfo 2 [facility] 01-17-2024 08:20-0400 Systolic blood pressure 113 mm[Hg] Pfo 2 [facility] 12-28-2023 14:42-0400 Body temperature 98.2 [degF] Pfo [address] [facility] 12-28-2023 14:42-0400 Diastolic blood pressure 63 mm[Hg] Pfo 1 [facility] 12-28-2023 14:42-0400 Heart rate 74 /min Pfo 1 [facility] 12-28-2023 14:42-0400 Respiratory rate 16 /min Pfo [address] [facility] 12-28-2023 14:42-0400 SaO2% (BldA) [Mass fraction] 98 % Pfo 1 [facility] 12-28-2023 14:42-0400 Systolic blood pressure 85 mm[Hg] Pfo 1 [facility] 12-28-2023 09:25-0400 Body mass index (BMI) [Ratio] 24.82 kg/m2 Pfo 1 [facility] 12-28-2023 09:25-0400 Body weight 74.03 kg Pfo 1 [facility] 11-21-2023 11:00-0400 Body mass index (BMI) [Ratio] 26.16 kg/m2 Josr Corona [facility] 11-21-2023 11:00-0400 Body weight 78.02 kg Josr Corona [facility] 03-08-2022 17:51-0400 Diastolic blood pressure 64 mm[Hg] Nick Gentile MD [facility] 03-08-2022 17:51-0400 Heart rate 60 /min Nick Gentile MD [facility] 03-08-2022 17:51-0400 Respiratory rate 16 /min [facility] 03-08-2022 17:51-0400 SaO2% (BldA) [Mass fraction] 94 % Nick Gentile MD [facility] 03-08-2022 17:51-0400 Systolic blood pressure 100 mm[Hg] Nick Gentile MD [facility] 03-08-2022 15:30-0400 Body height 172.7 cm Nick Gentile MD [facility] 03-08-2022 15:30-0400 Body mass index (BMI) [Ratio] 24.33 kg/m2 Nick Gentile MD [facility] 03-08-2022 15:30-0400 Body temperature 97.81 [degF] Nick Gentile MD [facility] 03-08-2022 15:30-0400 Body weight 72.58 kg Nick Gentile MD [facility] 02-16-2022 15:16-0400 Body temperature 97.7 [degF] Manuel Vegas MD [facility] 02-16-2022 15:16-0400 Diastolic blood pressure 85 mm[Hg] Manuel Vegas MD [facility] 02-16-2022 15:16-0400 Heart rate 70 /min Manuel Vegas MD [facility] 02-16-2022 15:16-0400 Respiratory rate 18 /min Manuel Vegas MD [facility] 02-16-2022 15:16-0400 Systolic blood pressure 125 mm[Hg] Manuel Vegas MD [facility] 02-16-2022 09:37-0400 SaO2% (BldA) [Mass fraction] 96 % Manuel Vegas MD [facility] Encounters Encounter Date Encounter Type Care Provider Facility Start: 08-20-2024 End: 08-20-2024 ambulatory Helga Cruz Facility:[facility] Start: 06-26-2024 End: 06-26-2024 ambulatory Pfo Infusion Chair 4 Sue Gurrola [facility] - [facility]cology Comment on above: Multiple sclerosis e xacerbation ([facility]) (Primary Dx) Start: 06-20-2024 End: 06-22-2024 ambulatory HELGA CRUZ [facility] Start: 06-20-2024 End: 06-22-2024 Subsequent hospital visit by physician Ceferino Eason DO Work Phone: [facility] Comment on above: Relapsing remitting multiple sclerosis (HCC) Start: 06-04-2024 End: 06-04-2024 Documentation procedure Lorena Mcrae [facility] Start: 05-16-2024 End: 05-16-2024 ambulatory Helga Cruz Facility:[facility] Start: 04-16-2024 End: 04-16-2024 ambulatory Helga Cruz Facility: [facility] Start: 03-26-2024 End: 03-26-2024 ambulatory HELGA Chan [facility] Start: 01-17-2024 End: 01-17-2024 ambulatory UNKNOWN PHYSICIAN [facility] Comment on above: Multiple sclerosis e xacerbation ([facility]-H[facility]) (Primary Dx) Start: 01-11-2024 End: 01-28-2024 ambulatory UNKNOWN PHYSICIAN [facility] Start: 12-28-2023 End: 12-28-2023 ambulatory UNKNOWN PHYSICIAN [facility] Comment on above: Multiple sclerosis e xacerbation ([facility]-H[facility]) (Primary Dx) Start: 11-27-2023 End: 11-27-2023 Orders Only Padmaja Oglesby [facility] Work Phone: Sue Gurrola [facility] - [facility] Start: 11-23-2023 End: 11-27-2023 ambulatory CARLOS ALBERTO GONZALEZ [facility] Start: 11-21-2023 End: 06-27-2024 ambulatory Josr Corona [facility] Comment on above: Multiple sclerosis e xacerbation (CMS-HCC) (Primary Dx) Start: 11-08-2023 End: 11-08-2023 ambulatory Helga Cruz Facility:[facility] Start: 01-10-2023 End: 01-10-2023 Subsequent hospital visit by physician Lew Wade [facility] Comment on above: No Show Start: 03-08-2022 End: 03-08-2022 Emergency department patient visit TIMBO OFELIA [facility] Start: 03-08-2022 End: 03-08-2022 Emergency department patient visit Nick Gentile MD [facility] Comment on above: Relapsing remitting multiple sclerosis (HCC) (Primary Dx) Start: 02-19-2022 End: 02-19-2022 Subsequent hospital visit by physician Lisa Olivas MD Work Phone: [phone] Comment on above: History of multiple sclerosis (HCC) (Primary Dx); Relapsing remitting multiple sclerosis (HCC) Start: 02-13-2022 End: 02-16-2022 Evaluation and management of inpatient [facility] Vegas [facility] Comment on above: Lower extremity numb ness (Primary Dx); History of multiple sclerosis (HCC); Relapsing remitting multiple sclerosis (HCC) Procedures Date Procedure Procedure Detail Performing Clinician Start: 06-20-2024 Mri brain brain stem w/o w/contrast material Ceferino Eason DO Work Phone: Start: 03-08-2022 Basic metabolic pane l calcium total Prashant Barraza DO Work Phone: Start: 02-16-2022 Glucose blood reagen t strip Hector Ag MD Work Phone: Start: 02-16-2022 Glucose blood reagen t strip Hector Ag MD Work Phone: Start: 02-15-2022 Glucose blood reagen t strip Hector Ag MD Work Phone: Start: 02-15-2022 End: 02-15-2022 Glucose blood reagent strip Subrahmanyam Chodisetty MD Work Phone: Start: 02-15-2022 Glucose blood reagen t strip Hector Ag MD Work Phone: Start: 02-15-2022 Glucose blood reagen t strip Hector Ag MD Work Phone: Start: 02-14-2022 Glucose blood reagen t strip Hector Ag MD Work Phone: Start: 02-14-2022 Glucose blood reagen t strip Hector Ag MD Work Phone: Start: 02-14-2022 Mri spinal canal cer vical w/o & w/contr matrl Alida Vieira MD Work Phone: Start: 02-14-2022 Glucose blood reagen t strip Hector Ag MD Work Phone: Start: 02-14-2022 Mri spinal canal lum bar w/o contrast material Walter Godinez Work Phone: Start: 02-13-2022 C-reactive protein Zuly Blas DO Work Phone: Start: 02-13-2022 Comprehensive metabo lic panel Terrie Blas DO Work Phone: Plan of Treatment Date Care Activity Detail Author Start: 08-17-2025 DTaP,Tdap and Td Vaccines (2 - Td or Tdap) DTaP,Tdap and Td Vaccines (2 - Td or Tdap) [facility] Start: 01-16-2025 Adult BMI Screening Adult BMI Screen ing [facility] Start: 01-16-2025 Tobacco Screening Tobacco Screening [facility] Start: 12-27-2024 Adult BMI Screening Adult BMI Screen ing [facility] Start: 12-27-2024 Tobacco Screening Tobacco Screening [facility] Start: 11-20-2024 Adult BMI Screening Adult BMI Screen ing [facility] Start: 06-19-2024 End: 06-19-2024 ambulatory 06/19/2024 8:30 AM EST Infusion Sue Gurrola [facility] [address] [place] [address] Sue Gurrola [facility] Start: 01-28-2024 Influenza vaccination Influenza Vacc ine [facility] Start: 01-11-2024 End: 01-11-2024 ambulatory 01/11/2024 8:00 AM EDT Infusion Sue Gurrola [facility] [address] [place] [address] Sue Gurrola [facility] Start: 12-28-2023 Influenza vaccination Flu vaccine (# 1) [facility] Start: 11-29-2023 Diabetes screen Diabetes screen [facility] Start: 01-24-2023 End: 01-24-2023 Admission to same day surgery center 01/24/2023 Surgery IP Unit Parrish Lora MD [address] [facility] [place] [address] EUA WITH PILONIDAL CYSTECTOMY [facility] Comment on above: EUA WITH PILONIDAL C YSTECTOMY Start: 01-24-2023 End: 01-24-2023 Excision pilonidal cyst/sinus complicated PILONIDAL CYSTECTOMY Pilonidal cyst Anal fistula 01/24/2023 1:00 PM EDT [facility] Start: 01-24-2023 Subsequent hospital visit by physician 01/24/2023 Hospital Encounter IP Unit Parrish Lora MD [address] [place] [address] [facility] Start: 01-16-2023 End: 01-16-2023 Patient encounter procedure 01/16/2023 Office Visit Neurology Jose Gallo MD [address] [address] [place] [address] [facility] Neurology Start: 12-27-2022 Influenza vaccination Flu vaccine (# 1) [facility] Start: 03-29-2022 End: 03-29-2022 Patient encounter procedure 03/29/2022 Office Visit Neurosurgery Cedric Marlena Morales, [employer] 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 [address] [facility] [address] [place] [address] [facility] Start: 03-17-2022 End: 02-16-2023 MRI CERVICAL SPINE W WO CONTRAST MRI CERVICAL SPINE W WO CONTRAST Imaging Routine Lower extremity numbness History of multiple sclerosis (HCC) Expected: 03/17/2022, Expires: 02/16/2023 [employer] Work Phone: Comment on above: Expected: 03/17/2022 , Expires: 02/16/2023 Start: 03-17-2022 End: 02-16-2023 MRI THORACIC SPINE W WO CONTRAST MRI THORACIC SPINE W WO CONTRAST Imaging Routine Lower extremity numbness History of multiple sclerosis (HCC) Expected: 03/17/2022, Expires: 02/16/2023 [employer] [facility] [employer] Work Phone: Comment on above: Expected: 03/17/2022 , Expires: 02/16/2023 Start: 02-18-2022 End: 02-18-2022 Patient encounter procedure 02/18/2022 Appointment Oncology [facility] 3C Observation Start: 02-17-2022 End: 02-17-2022 Patient encounter procedure 02/17/2022 Appointment Oncology [facility] 3C Observation Start: 01-27-2022 Influenza vaccination Flu vaccine (# 1) [facility] Start: 12-27-2021 Influenza vaccination Flu [facility] (# 1) [facility] Start: 07-28-2021 Depression Screen [facility] Screen [facility] Start: 08-19-2015 DTaP/Tdap/Td vaccine (1 - Tdap) DTaP/Tdap/Td vaccine (1 - Tdap) [facility] Start: 11-29-2007 DTaP,Tdap and Td Vaccines (1 - Tdap) DTaP,Tdap and Td Vaccines (1 - Tdap) [facility] Start: 11-29-2007 Hepatitis B vaccine (1 of 3 - 19+ 3-dose series) Hepatitis B vaccine (1 of 3 - 19+ 3-dose series) [facility] Start: 11-29-2007 Shingles vaccine (1 of 2) Shingles vaccine (1 of 2) [facility] Start: 2006 Hepatitis C screening Hepatitis C sc reen [facility] Start: 2000 Depression Screen Depression Screen [facility] Start: 2000 Depression Screening Depression Scre ening [facility] Start: 2000 Tobacco Screening Tobacco Screening [facility] Start: 1994 Pneumococcal 0-64 ye ars Vaccine (1 of 2 - PCV) Pneumococcal 0-64 years Vaccine (1 of 2 - PCV) [facility] Start: 1993 COVID-19 Vaccine (#1) COVID-19 Vacci ne (#1) [facility] Start: 05-31-1989 COVID-19 Vaccine (#1) COVID-19 Vacci ne (#1) [facility] Start: 1988 Hepatitis B vaccine (1 of 3 - 3-dose series) Hepatitis B vaccine (1 of 3 - 3-dose series) [facility] End: 02-15-2022 Basic Metabolic Panel w/ Reflex to MG Basic Metabolic Panel w/ Reflex to MG Lab Routine Tomorrow AM for 1 Occurrences starting 02/15/2022 until 02/15/2022 [employer] [facility] Work Phone: Comment on above: Tomorrow AM for 1 Oc currences starting 02/15/2022 until 02/15/2022 End: 02-15-2022 CBC W Auto Differential panel - Blood CBC with Auto Differential Lab Routine Tomorrow AM for 1 Occurrences starting 02/15/2022 until 02/15/2022 [facility] Phone: Comment on above: Tomorrow AM for 1 Oc currences starting 02/15/2022 until 02/15/2022 Glucose [Mass/volume ] in Serum or Plasma POCT Glucose Point of Care Testing STAT As Needed until discontinued starting 02/14/2022 [employer] Work Phone: Comment on above: As Needed until disc ontinued starting 02/14/2022 End: 01-18-2024 Oxygen Therapy - Maintain SpO2: 90% or greater; *PROTEIN PURIFICATION SCIENTIST Guidelines for O2: Yes; Document: [email or web address]/ Orders/Respiratory%20Ca re%20Guidelines/CPG%20O xygen%[id number].pdf Oxygen Therapy - Maintain SpO2: 90% or greater; *PROTEIN PURIFICATION SCIENTIST Guidelines for O2: Yes; Document: [email or web address]/[email or web address]_[email or web address] e/Orders/Respiratory%2 0Care%20Guidelines/CPG %20Oxygen%434214.pdf Respiratory Care STAT Multiple sclerosis exacerbation ([facility]) As Needed for 1 Occurrences starting 01/17/2024 until 01/18/2024 [employer] Work Phone: Comment on above: As Needed for 1 Occu rrences starting 01/17/2024 until 01/18/2024 Oxygen therapy [[facility] Data Set] Initiate Oxygen Therapy Protocol Respiratory Care Routine As Needed until discontinued starting 02/14/2022 [employer] Phone: Comment on above: As Needed until disc ontinued starting 02/14/2022 Immunizations Immunization Date Immunization Notes Care Provider Mary jean 08-18-2015 Td, unspecified formulation Manuel Vegas MD [facility] Payers Date Payer Category Payer Medicaid [facility] MEDICAID [facility] PLAN [id number] 2022-Present [phone] [address] [place] [address] [id number] 2022 Medicaid HMO [facility] MEDICAID [id number] 2022 Private Health Insurance [id number] 2015 Private Health Insurance [id number] 2015 Private Health Insurance [id number] 1988 Unknown [id number] [id number]. 2.176 1988 Unknown [id number] [id number]. 2.177 1988 Unknown [id number] 2.840.1.699771.3.579. 2.175 1988 Unknown [id number] 2.840.1.609743.3.579. 2.1286 1988 Unknown [id number] [id number]. 2.1286 1988 Unknown [id number] [id number]. 2.1286 1988 Unknown [id number] [id number]. 2.1286 1988 Unknown [id number] [id number]. 2.1286 1988 Unknown [id number] [id number]. 2.718 1988 Unknown [id number] [id number]. 2.718 1988 Unknown [id number] [id number]. 2.718 1988 Unknown [id number]. 2.718 Social History Date Type Detail Facility Start: 10-08-2018 End: 02-13-2022 Tobacco smoking status RIIS Never smoked tobacco [facility] Start: 10-08-2018 End: 02-13-2022 Tobacco use and exposure Smokeless tobacco non-user [employer] Phone: Start: 02-13-2022 End: 07-18-2022 Alcohol intake Current drinker of alcohol (finding) [employer] Phone: Start: 03-04-2021 History SDOH Alcohol Comment social [facility] Work Phone: Start: 07-28-2020 History SDOH Financial 5 [employer] Phone: Start: 07-28-2020 History SDOH Food Worry 1 [employer] Phone: Start: 07-28-2020 History SDOH Transpo rt Med 2 [employer] Phone: Start: 1990 Sex Assigned At Not on file B [employer] Phone: Start: 02-04-2022 End: 02-15-2022 Exposure to SARS-CoV-2 (event) Not sure [facility] Start: 12-28-2023 End: 01-17-2024 Alcoholic beverage intake Lifetime non-drinker (finding) [facility] Start: 10-08-2018 End: 07-09-2020 History of Social function [employer] Start: 10-08-2018 End: 07-09-2020 Alcohol Use Disorder Identification Test - Consumption [AUDIT-C] [facility] Frequency of Alcohol Consumption Never [facility] Start: 01-01-2015 Sex Male (finding) [facility] Start: 04-11-2024 Alcoholic beverage intake Ex-d tello (finding) [facility] (I/We) worried myron er (my/our) food would run out before (I/we) got money to buy more. Never true [facility] NEGATED: Highlighted rowStart: BONIFACIOF History of tobacco use Passive smoker [facility] Clinical Notes 02-16-2022 to 06-26-2024 Kiley Negron RN - 06/26/2024 11:30 AM Antonio Cerna RN - 06/04/2024 12:57 PM Antonio Cerna RN - 01/17/2024 8:00 AM Saurav Fuller RN - 12/28/2023 9:00 AM EDTDischarge Instructions Note Date & Type Note Facility 06-26-2024 History of Present illness Narrative Patient presents for third Briumvi infusion. Denies any complaints with previous infusion. PIV initiated, brisk blood return noted, flushed with NS with ease. NS at KVO infusing. Pre medications administered (Benadryl, Tylenol, and Solumedrol). Briumvi initiated at 100 ml/hour x 30 minutes without incidence. Rate increased to 400 ml/hour until completion. Denies any issues. Vitals remain stable. PIV discontinued. Patient aware to request new order from prescribing doctor. Once new order received next dose can be scheduled. Verified understanding. Discharged in stable condition with official escort. documented in this encounter [facility] 06-04-2024 History of Present illness Narrative ANY [facility] Med Onc Nurses [facility] Adult Neurology called just to give the heads up that pt is currently incarcerated. His release date is not until July. They are reaching out to the custodial to see if they can transport him here for that treatment as the Dr does not want him getting to far behind on his treatments. documented in this encounter [facility] 04-02-2024 Note [id number] 01-17-2024 History of Present illness Narrative Patient is here for his second dose of Brimunvi. He states he had some nausea with last dose but he tolerated it well. IV started. NS started at KVO. PO tylenol and benedryl given. IV solumedrol given. Briumvi started at 100 ml/hr for the first 30 minutes. Patient tolerated it well. Rate increased to 400 ml/hr. Patient tolerated Briumvi infusion well without issues. Patient only willing to stay for 30 minute observation. He refused the rest of 30 minute observation. He feels fine, declines vitals. IV removed. Patient given calendar, verbalized understanding of future appointment. documented in this encounter [facility] 12-28-2023 History of Present illness Narrative The patient is here today for his first dose of Briumvi The patient appears well, a little anxious but overall is ok Vitals are within normal limits PIV started with brisk blood return Normal saline started at KVO for mainline Pre meds given via IVP and oral Briumvie started and titrated per protocol The patient tolerated well Vitals remained stable throughout infusion Observed patient one hour post hydration No adverse reactions noted {IV removed, calendar given, patient discharged in stable condition [facility] 03-08-2022 Hospital Discharge instructions Prashant Barraza DO - 03/08/2022 6:01 PM EDT Follow-up with your neurologist as soon as possible. You need to call your neurologist first thing tomorrow. Please take steroids as prescribed. If your symptoms worsen in any way return to the emergency department or call 911 documented in this encounter [employer] Work Phone: 02-16-2022 History of Present illness Narrative CLINICAL PHARMACY NOTE: MEDS TO BEDS Total # of Prescriptions Filled: 1 The following medications were delivered to the patient: Pantoprazole 40mg tablets Additional Documentation: medications delivered to the pt in room 136 on 02.16.22 by praful at 17:15, no co pay Physical Therapy Facility/Department: [address] [place] Daily Treatment Note Name: Juice White : 1990 Date of Service: 02/16/2022 Discharge Recommendations: Patient would benefit from continued therapy after discharge PT Equipment Recommendations Equipment Needed: No (pt reports having access to canes and walkers) Patient Diagnosis(es): The primary encounter diagnosis was Lower extremity numbness. Diagnoses of History of multiple sclerosis (HCC) and Relapsing remitting multiple sclerosis (HCC) were also pertinent to this visit. Past Medical History: has a past medical history of Acute respiratory failure (HCC), Anxiety and depression, Asthma, Salazar's palsy, Cerebral artery occlusion with cerebral infarction (HCC), Closed head injury, Closed nondisplaced fracture of seventh cervical vertebra (HCC), Difficulty sleeping, Epilepsy (HCC), Fracture of occipital condyle (HCC), GERD (gastroesophageal reflux disease), Headache(784.0), Hemorrhagic stroke (HCC), Knee pain, bilateral, Memory loss, Multiple sclerosis (HCC), Neck fracture (HCC), Neck pain, Scoliosis, SDH (subdural hematoma) (HCC), Skull fracture (HCC), and Subarachnoid hemorrhage (HCC). Past Surgical History: has a past surgical history that includes Wound debridement (10-26-2011); skin biopsy (12-04-2009); skin biopsy (03-13-2008); skin biopsy (03-17-2006); Nerve Block (approx 2007 or 2008); and [place] tooth extraction. Assessment Body Structures, Functions, Activity Limitations Requiring Skilled Therapeutic Intervention: Decreased functional mobility ;Decreased endurance;Decreased balance Assessment: The pt ambulated 250ft with CGA without AD with deviation of path. Stair training x 10 step with CTA and L rail ascending. Recommend continued PT to maximize safety and independence. Should RLE and gait deficits persist, the pt would benefit from outpatient PT. Therapy Prognosis: Good Activity Tolerance Activity Tolerance: Patient tolerated treatment well Plan Plan Plan: 3-5 times per week Current Treatment Recommendations: Strengthening, Balance training, ROM, Functional mobility training, Transfer training, Endurance training, Therapeutic activities, Gait training, Stair training, Neuromuscular re-education, Equipment evaluation, education, & procurement, Patient/Caregiver education & training, Safety education & training, Home exercise program Safety Devices Type of Devices: Call light within reach, Gait belt, Left in bed Restraints Restraints Initially in Place: No Restrictions Restrictions/Precautions Restrictions/Precautions: Fall Risk, Up as Tolerated Required Braces or Orthoses?: No Position Activity Restriction Other position/activity restrictions: hx MS Subjective General Chart Reviewed: Yes Response To Previous Treatment: Patient with no complaints from previous session. Family / Caregiver Present: Yes (mother) Subjective Subjective: RN and pt agreeable to PT. Pt supine in bed upon arrival, very pleasant and cooperative throughout. 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 ataxic Gait Deviations: Decreased arm swing;Staggers;Deviated path Distance: 250ft Comments: unsteady w/o LOB, safety verbal cues given d/t Stairs/Curb Stairs?: Yes Stairs # Steps : 10 Stairs Height: 6 Rails: Left ascending Assistance: Contact guard assistance Comment: mildly unsteady, step to step pattern, verbal cues to decrease impulsivity Balance Posture: Good Sitting - Static: Good Sitting - Dynamic: Good Standing - Static: Fair;+ Standing - Dynamic: Fair Comments: standing balance assessed without AD OutComes Score AM-PAC Score AM-PAC Inpatient Mobility Raw Score : 22 (02/16/22 154) AM-PAC Inpatient T-Scale Score : 53.28 (02/16/22 154) Mobility Inpatient CMS 0-100% Score: 20.91 (02/16/22 154) Mobility Inpatient CMS G-Code Modifier : CJ (02/16/221540) Goals Short Term Goals Time Frame for Short term goals: 10 visits Short term goal 1: Perform bed mobility and functional transfers independently Short term goal 2: Ambulate 600ft independently Short term goal 3: Ascend/descend 10 steps independently Short term goal 4: Demo Good dynamic standing balance Education Patient Education Education Given To: Patient;Family Education Provided: Plan of Care;Role of Therapy Education Method: Verbal Barriers to Learning: None Education Outcome: Verbalized understanding Therapy Time Individual Concurrent Group Co-treatment Time In 1526 Time Out 1534 Minutes 8 Timed Code Treatment Minutes: 8 Minutes EDMUND ECHAVARRIA PTA Images from the original note were not included. [facility] Neurology IN-PATIENT SERVICE [facility] Resident Progress Note Date: 02/16/2022 Patient name: Juice White Date of admission: 02/13/2022 9:07 PM Account: [id number] Date of : 1990 PCP: CORONA Lafleur CNP Room: [address] [place] [address] Code Status: Full Code Today's Examination & Encounter: The patient was seen and examined today and the chart was reviewed. The patient was admitted on 02/13/2022. Today is day 3 hospitalization. No acute events overnight.Vitally stable. had 2500 mg so far IVMP with 80% improvement in his bilateral lower ext sensory symptoms. Urinary retention resolved. Has some constipation Brief History & Hospitalization Course: This is a 31 y.o. male with history of MS 5 years ago presented on 02/13/2022 with progressive bilateral lower extremity tingling and numbness more on the right side compared to left. He also presented with constipation and urinary retention with MRI (brain, C, T and lumbar spines) showing transverse myelitis at the level of T11-T12 The patient has a past hx of anxiety, depression, head trauma, seizure secondary to head trauma, not on antiepileptic medications currently with last seizure event 2 years ago. Patient's neurological examination; showed decreased sensation right greater than left to pinprick, temperature and vibration with reflexes 3+, 5/5 strength. Subjective: 80% improvement in lower ext numbness, urinary retention and constipation improving. ROS Constitutional Negative fever, Negative chills, Negative fatigue HENT Negative change in vision or hearing Respiratory Negative cough, Negative shortness of breathing Cardiovascular Negative chest pain, Negative palpitations, Negative leg swelling. Gastrointestinal Negative nausea, Negative vomiting, Negative diarrhea. Genitourinary Negative increased frequency, Negative urgency. Musculoskeletal Negative No myalgia or arthralgia. Skin Negative rashes or scarring or bruises. Neurological Negative headache, Negative paresthesia, Negative focal weakness. Endo/Heme/Allergies Negative for itchy eyes or runny nose. Psychiatric/Behavioral Negative anxiety or depressed mood. Objective: PHYSICAL EXAM: Blood pressure 119/70, pulse 77, temperature 97.4 F (36.3 C), temperature source Oral, resp. rate 16, SpO2 96 %. General Examination General Resting comfortably in bed Head Normocephalic, without obvious abnormality Neck Supple, symmetrical. Good ROM. No midline or paraspinal tenderness. Lungs Respirations unlabored, no wheezing Chest Wall No deformity, equal diaphragm elevation bilaterally Heart RRR, no murmur Abdomen Soft. Non-tender, non-distended Extremities No cyanosis or edema or warmth. Pulses 2+ and symmetric Skin: Skin turgor normal, no rashes or lesions Mental status Alert. Oriented to person, place, and time. Speech Speech exam is intact, no dysarthria or aphasia Cranial nerves II - visual aleman intact III, IV, - extra-ocular muscles full and intact No nystagmus. Pupils symmetric and responsive to light and accomodation. V - sensation symmetric, Jaw reflex normal. VII - No facial droop or asymmetric NLF VIII - intact hearing to conversational tone IX, X - symmetrical palate elevation XI - 5/5 strength symmetric XII - tongue midline and no deviation Motor function Strength: Right Side: Left Side: 5/5 Upper Ext 5/5 upper Ext 5/5 Lower Ext 5/5 Lower Ext Bulk: grossly normal no atrophy Tone: symmetric b/l arms and legs, no spasticity Abnormal movements: No abnormal movements or tremor Sensory function Bilateral lower decreased sensation to all sensory modalities (R>L); improving. Cerebellar No dysmetria or dysdiadochocinesia Reflex function Deep tendon reflexes: Right Side: Left Side: +++ biceps +++ biceps +++ brachioradialis ++ +brachioradialis ++ +patellar +++ patellar +++ calcaneal +++ calcaneal Babinski sign negative Babinski sign negative Dimas sing negative Dimas sign negative Gait Examined with PT/OT Investigations: Laboratory Testing: Recent Results (from the past 24 hour(s)) POC Glucose Fingerstick Collection Time: 02/15/22 11:35 AM Result Value Ref Range POC Glucose 146 (H) 75 - 110 mg/dL POC Glucose Fingerstick Collection Time: 02/15/22 3:30 PM Result Value Ref Range POC Glucose 202 (H) 75 - 110 mg/dL POC Glucose Fingerstick Collection Time: 02/15/22 4:20 PM Result Value Ref Range POC Glucose 180 (H) 75 - 110 mg/dL POC Glucose Fingerstick Collection Time: 02/15/22 9:08 PM Result Value Ref Range POC Glucose 181 (H) 75 - 110 mg/dL Imaging/Diagnostics: MRI LUMBAR SPINE WO CONTRAST Result Date: 02/14/2022 EXAMINATION: MRI OF THE LUMBAR SPINE WITHOUT CONTRAST, 02/14/2022 1:41 am TECHNIQUE: Multiplanar multisequence MRI of the lumbar spine was performed without the administration of intravenous contrast. COMPARISON: CT abdomen and pelvis 08/18/2015. HISTORY: ORDERING SYSTEM PROVIDED HISTORY: r/o cauda equina vs MS TECHNOLOGIST PROVIDED HISTORY: r/o cauda equina vs MS Reason for Exam: r/o cauda equina FINDINGS: Motion artifact limits evaluation. BONES/ALIGNMENT: There is normal alignment of the spine. The vertebral body heights are maintained. The bone marrow signal appears unremarkable. SPINAL CORD: The conus terminates normally. SOFT TISSUES: No paraspinal mass identified. L1-L2: There is no significant disc herniation, spinal canal stenosis or neural foraminal narrowing. L2-L3: There is no significant disc herniation, spinal canal stenosis or neural foraminal narrowing. L3-L4: There is no significant disc herniation, spinal canal stenosis or neural foraminal narrowing. L4-L5: There is no significant disc herniation, spinal canal stenosis or neural foraminal narrowing. L5-S1: Annular fissure, disc bulge. There is no spinal canal stenosis or neural foraminal narrowing. No significant spinal canal or neural foraminal stenosis in the lumbar spine. No abnormal cord signal. Annular fissure at L5-S1 disc. RECOMMENDATIONS: Unavailable MRI CERVICAL SPINE W WO CONTRAST Result Date: 02/14/2022 EXAMINATION: MRI OF THE CERVICAL SPINE WITHOUT AND WITH CONTRAST 02/14/2022 10:09 am: TECHNIQUE: Multiplanar multisequence MRI of the cervical spine was performed without and with the administration of intravenous contrast. COMPARISON: 08/19/2015. HISTORY: ORDERING SYSTEM PROVIDED HISTORY: eval for MS lesions TECHNOLOGIST PROVIDED HISTORY: eval for MS lesions Decision Support Exception - unselect if not a suspected or confirmed emergency medical condition->Emergency Medical Condition (MA) Reason for Exam: Evaluate for MS Lesions - Bladder problem and Difficulty Walking. Initial evaluation. FINDINGS: BONES/ALIGNMENT: The vertebral body heights appear maintained. Straightening of the normal cervical lordosis. No evidence of spondylolisthesis. The bone marrow signal demonstrates no acute abnormality. SPINAL CORD: There appears to be T2 hyperintensity within the left dorsal aspect of the cord at the lower C2 level without associated enhancement. No additional focus of abnormal cord signal is confidently identified. No abnormal enhancement is seen of the cervical cord. SOFT TISSUES: No paraspinal mass identified. C2-C3: There is no significant disc bulge, spinal canal stenosis or neural foraminal narrowing. C3-C4: There is no significant disc bulge, spinal canal stenosis or neural foraminal narrowing. C4-C5: There is no significant disc bulge, spinal canal stenosis or neural foraminal narrowing. C5-C6: There is no significant disc bulge, spinal canal stenosis or neural foraminal narrowing. C6-C7: There is no significant disc bulge, spinal canal stenosis or neural foraminal narrowing. C7-T1: There is no significant disc bulge, spinal canal stenosis or neural foraminal narrowing. 1. There is suggestion of T2 hyperintensity within the left dorsal aspect of the cord at the lower C2 level without associated enhancement. 2. No additional area of abnormal cord signal. 3. Straightening of the normal cervical lordosis without spondylolisthesis. 4. No significant spinal canal stenosis or neural foraminal narrowing. MRI THORACIC SPINE W WO CONTRAST Result Date: 02/14/2022 EXAMINATION: MRI OF THE THORACIC SPINE WITHOUT AND WITH CONTRAST 02/14/2022 10:09 am TECHNIQUE: Multiplanar multisequence MRI of the thoracic spine was performed without and with the administration of intravenous contrast. COMPARISON: None HISTORY: ORDERING SYSTEM PROVIDED HISTORY: eval for MS exac TECHNOLOGIST PROVIDED HISTORY: eval for MS exac Decision Support Exception - unselect if not a suspected or confirmed emergency medical condition->Emergency Medical Condition (MA) Reason for Exam: Evaluate for MS Lesions - Bladder problem and Difficulty Walking. Initial evaluation. FINDINGS: Motion degrades images limiting evaluation. BONES/ALIGNMENT: The vertebral body heights appear maintained. There is no evidence of spondylolisthesis. The bone marrow signal demonstrates no acute abnormality. SPINAL CORD: There is T2 hyperintensity within the dorsal aspect of the cord at T11-T12. Associated enhancement is seen. No additional focus of abnormal cord signal seen. SOFT TISSUES: No paraspinal mass identified. DEGENERATIVE CHANGES: No significant spinal canal stenosis or neural foraminal narrowing of the thoracic spine. 1. T2 hyperintensity within the dorsal aspect of the cord at T11-T12 with associated enhancement. This is compatible with patient's history of multiple sclerosis with active demyelination. 2. No significant spinal canal stenosis or neural foraminal narrowing of the thoracic spine. MRI BRAIN W WO CONTRAST Result Date: 02/14/2022 EXAMINATION: MRI OF THE BRAIN WITHOUT AND WITH CONTRAST 02/14/2022 10:09 am TECHNIQUE: Multiplanar multisequence MRI of the head/brain was performed without and with the administration of intravenous contrast. COMPARISON: 04/29/2016. HISTORY: ORDERING SYSTEM PROVIDED HISTORY: eval for MS lesions TECHNOLOGIST PROVIDED HISTORY: eval for MS lesions Decision Support Exception - unselect if not a suspected or confirmed emergency medical condition->Emergency Medical Condition (MA) Reason for Exam: Evaluate for MS Lesions - Bladder problem and Difficulty Walking. Initial evaluation. FINDINGS: INTRACRANIAL STRUCTURES/VENTRICLES: There is no evidence of an acute infarct. There are areas of T2 FLAIR hyperintensity involving the periventricular and subcortical white matter bilaterally. There appear to be several new lesions when compared the prior exam including 1 within the left angle. A T2 hyperintense focus within the right brachium pontis appears similar to the prior exam. No associated contrast enhancement is seen. No abnormal enhancement is seen within the brain. There is minimal global parenchymal volume loss. Otherwise, the size and configuration of the ventricles and sulci appear normal. The normal signal voids within the major intracranial vessels appear maintained. No evidence of an acute intracranial hemorrhage. Sequelae of a remote hemorrhage involving the mesial right frontal lobe appears unchanged. ORBITS: The visualized portion of the orbits demonstrate no acute abnormality. SINUSES: Scattered mucosal thickening of the paranasal sinuses. Trace opacification of the mastoid air cells bilaterally. BONES/SOFT TISSUES: The bone marrow signal intensity appears normal. The soft tissues demonstrate no acute abnormality. 1. No acute intracranial abnormality. No acute infarct. 2. T2 FLAIR hyperintense lesions are seen involving the supratentorial and infratentorial compartments compatible with a clinical diagnosis of multiple sclerosis. There appear to be several new lesions when compared to the MRI from 2016 including a lesion within the left angle. However, no associated contrast enhancement is seen to suggest active demyelination. 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] 02/14/2022 Priority: Medium 31 years old male patient with hx of MX- Presented on 02/13/2022 as a case of T11-T12 transverse myelitis with constipation and urinary retention along with progressive bilateral lower ext numbness of 2 weeks duration. Significant improvement on steroids. Impression: - Transverse myelitis Plan: Continue IV solumedrol 1gm daily for 5 days- will possibly discharge today and continue IVMP outpatient infusion. Will talk to the patient with the attending Continue PPI PT/OT Festus Ortega MD, , 02/16/2022 10:27 AM PGY-3 Neurology Resident Associated attestation - Jay Anthony DO - 02/16/2022 3:20 PM EDT Attending Physician Statement: I have discussed the case of Juice White, including pertinent history and exam findings with the resident. I have seen and examined the patient and the ge elements of the encounter have been performed by me. I have reviewed medications, clinical laboratory, imaging and other diagnostic tests with the residents. I agree with the assessment, plan and orders as documented by the resident with changes made to the note as needed. Transverse myelitis MS exacerbation Continue IV Solu-Medrol, will plan for 2 more days infusion as outpatient. He would like to go home today. Patient endorses improvement in symptoms. Continue PT OT Requires outpatient follow-up in our clinic in the next 3 to 4 weeks to start disease modifying therapy. Jay Anthony DO 02/16/2022 3:20 PM Occupational Therapy Facility/Department: [address] [facility] Occupational Therapy Initial Assessment Name: Juice White : 1990 Date of Service: 02/15/2022 Chief Complaint Patient presents with Difficulty Walking Waist down seems numb; few days Multiple Sclerosis exacerbation Bladder Problem Does not feel like he is emptying his bladder Discharge Recommendations: Continue to assess pending progress Patient Diagnosis(es): The primary encounter diagnosis was Lower extremity numbness. A diagnosis of History of multiple sclerosis (HCC) was also pertinent to this visit. Past Medical History: has a past medical history of Acute respiratory failure (HCC), Anxiety and depression, Asthma, Salazar's palsy, Cerebral artery occlusion with cerebral infarction (HCC), Closed head injury, Closed nondisplaced fracture of seventh cervical vertebra (HCC), Difficulty sleeping, Epilepsy (HCC), Fracture of occipital condyle (HCC), GERD (gastroesophageal reflux disease), Headache(784.0), Hemorrhagic stroke (HCC), Knee pain, bilateral, Memory loss, Multiple sclerosis (HCC), Neck fracture (HCC), Neck pain, Scoliosis, SDH (subdural hematoma) (HCC), Skull fracture (HCC), and Subarachnoid hemorrhage (HCC). Past Surgical History: has a past surgical history that includes Wound debridement (10-26-2011); skin biopsy (12-04-2009); skin biopsy (03-13-2008); skin biopsy (03-17-2006); Nerve Block (approx 2007 or 2008); and [place] tooth extraction. Assessment Performance deficits / Impairments: Decreased functional mobility ;Decreased ADL status;Decreased endurance;Decreased balance;Decreased safe awareness;Decreased cognition;Decreased high-level IADLs Assessment: Pt currently limited in performing ADL tasks and functional transfers/functional mobility due to above noted deficits, most significantly decreased balance secondary to RLE deficits and decreased safety awareness. Pt to benefit from continued therapy services while hospitalized to maximize pt's safety and independence in performing functional tasks. Pt unsafe to participate in ADL requiring standing/mobility independently at this time therefore 24hr supervision/assistance recommended. Prognosis: Good Decision Making: Medium Complexity REQUIRES OT FOLLOW-UP: Yes Activity Tolerance Activity Tolerance: Patient limited by fatigue Safety Devices Type of Devices: Nurse notified;Call light within reach;Gait belt;Left in chair (instructed pt to request assistance for all mobility, with verbalized understanding) Restraints Restraints Initially in Place: No Plan Plan Times per Week: 2-4x/wk Times per Day: Daily Current Treatment Recommendations: Balance training, Functional mobility training, Endurance training, Safety education & training, Self-Care / ADL, Patient/Caregiver education & training, Equipment evaluation, education, & procurement, Home management training Restrictions Restrictions/Precautions Restrictions/Precautions: Fall Risk, Up as Tolerated Required Braces or Orthoses?: No Position Activity Restriction Other position/activity restrictions: hx MS Subjective General Patient assessed for rehabilitation services?: Yes Family / Caregiver Present: No General Comment Comments: RN ok'd for therapy this AM. Pt agreeable to participate in session and pleasant/cooperative throughout. Social/Functional History Social/Functional History Lives With: Parent Type of Home: House Home Layout: Able to Live on Main level with bedroom/bathroom, Performs ADL's on one level, Two level Home Access: Stairs to enter without rails Entrance Stairs - Number of Steps: 3 steps Bathroom Shower/Tub: Tub/Shower unit Bathroom Toilet: Standard Bathroom Equipment: Grab bars in shower, Toilet raiser Bathroom Accessibility: Accessible Home Equipment: Cane, quad, Cane, Walker, rolling Has the patient had two or more falls in the past year or any fall with injury in the past year?: No Receives Help From: Family ADL Assistance: Independent Homemaking Assistance: Independent Homemaking Responsibilities: Yes Meal Prep Responsibility: Primary Laundry Responsibility: Primary Cleaning Responsibility: Primary Shopping Responsibility: Primary Health Care Management: Primary Ambulation Assistance: Independent Transfer Assistance: Independent Active Director It: Yes Mode of Transportation: SUV 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 Objective Vision Vision: Within Functional Limits Hearing Hearing: Within functional limits Balance Sitting: Supervision Standing: Contact guard assistance Functional Mobility Overall Level of Assistance: Contact-guard assistance (Pt performed functional mobility within hospital room/hallway; pt moderately unsteady with noted RLE buckling) Interventions: Safety awareness training;Verbal cues (Min VCs for safety awareness/techniques as pt with quick pace/impulsivity noted) AROM: Within functional limits (BUE) Strength: Within functional limits (BUE grossly 5/5) Coordination: Within functional limits (BUE FMC/GMC) ADL Feeding: Independent Grooming: Stand by assistance;Increased time to complete UE Bathing: Stand by assistance;Increased time to complete LE Bathing: Minimal assistance;Increased time to complete UE Dressing: Stand by assistance;Increased time to complete (seated EOB to [facility] hospital gown) LE Dressing: Minimal assistance;Increased time to complete (seated at recliner chair to doff/don socks) Toileting: Increased time to complete;Contact guard assistance Bed mobility Supine to Sit: Modified independent (HOB elevated) Sit to Supine: (retired to bedisde chair following ambulation) Scooting: Independent Transfers Sit to stand: Contact guard assistance Stand to sit: Contact guard assistance Transfer Comments: Min VCs for safety awareness as pt with quick/impulsive pace Cognition Overall Cognitive Status: Exceptions Safety Judgement: Decreased awareness of need for assistance;Decreased awareness of need for safety Insights: Decreased awareness of deficits Orientation Overall Orientation Status: Within Functional Limits Education Given To: Patient Education Provided: Role of Therapy;Plan of Care;ADL Adaptive Strategies;Transfer Training;Energy Conservation;Precautions;Fall Prevention Strategies Education Method: Verbal Education Outcome: Verbalized understanding;Continued education needed AM-PAC Score AM-PAC Inpatient Daily Activity Raw Score: 18 (02/15/221446) AM-PAC Inpatient ADL T-Scale Score : 38.66 (02/15/221446) ADL Inpatient CMS 0-100% Score: 46.65 (02/15/221446) ADL Inpatient CMS G-Code Modifier : CK (02/15/221446) Goals Short Term Goals Time Frame for Short term goals: Pt will, by discharge: Short Term Goal 1: Perform functional transfers/functional mobility independently Short Term Goal 2: Perform ADL tasks independently Short Term Goal 3: Independently demo good safety awareness during engagement in all ADLs and functional transfers/functional mobility Therapy Time Individual Concurrent Group Co-treatment Time In 1016 Time Out 1037 Minutes 21 Timed Code Treatment Minutes: 8 Minutes Leighann Sherwood OTR/L Physical Therapy Facility/Department: [address] [facility] Physical Therapy Initial Assessment Name: Juice White : 1990 Date of Service: 02/15/2022 Chief Complaint Patient presents with Difficulty Walking Waist down seems numb; few days Multiple Sclerosis exacerbation Bladder Problem Does not feel like he is emptying his bladder Discharge Recommendations: Further therapy recommended at discharge if gait deficits persist. PT Equipment Recommendations Equipment Needed: No (pt reports having access to canes and walkers) Patient Diagnosis(es): The primary encounter diagnosis was Lower extremity numbness. A diagnosis of History of multiple sclerosis (HCC) was also pertinent to this visit. Past Medical History: has a past medical history of Acute respiratory failure ([facility]), Anxiety and depression, Asthma, Salazar's palsy, Cerebral artery occlusion with cerebral infarction (HCC), Closed head injury, Closed nondisplaced fracture of seventh cervical vertebra (HCC), Difficulty sleeping, Epilepsy (HCC), Fracture of occipital condyle ([facility]), GERD (gastroesophageal reflux disease), Headache(784.0), Hemorrhagic stroke ([facility]), Knee pain, bilateral, Memory loss, Multiple sclerosis (HCC), Neck fracture (HCC), Neck pain, Scoliosis, SDH (subdural hematoma) ([facility]), Skull fracture ([facility]), and Subarachnoid hemorrhage ([facility]). Past Surgical History: has a past surgical history that includes Wound debridement (10-26-2011); skin biopsy (12-04-2009); skin biopsy (03-13-2008); skin biopsy (03-17-2006); Nerve Block (approx 2007 or 2008); and [place] tooth extraction. Assessment Body Structures, Functions, Activity Limitations Requiring Skilled Therapeutic Intervention: Decreased functional mobility ;Decreased endurance;Decreased balance Assessment: The pt ambulated 250ft with CGA-Min A for multiple LOB due to RLE deficits. Recommend continued PT to maximize safety and independence. Should RLE and gait deficits persist, the pt would benefit from outpatient PT. Therapy Prognosis: Good Decision Making: Medium Complexity Requires PT Follow-Up: Yes Activity Tolerance Activity Tolerance: Patient tolerated treatment well Plan Plan Plan: 3-5 times per week Current Treatment Recommendations: Strengthening, Balance training, ROM, Functional mobility training, Transfer training, Endurance training, Therapeutic activities, Gait training, Stair training, Neuromuscular re-education, Equipment evaluation, education, & procurement, Patient/Caregiver education & training, Safety education & training, Home exercise program Safety Devices Type of Devices: Nurse notified, Call light within reach, Gait belt, Left in chair (instructed pt to request assistance for all mobility, with verbalized understanding) Restraints Restraints Initially in Place: No Restrictions Restrictions/Precautions Restrictions/Precautions: Fall Risk, Up as Tolerated Required Braces or Orthoses?: No Position Activity Restriction Other position/activity restrictions: hx MS Subjective General Patient assessed for rehabilitation services?: Yes Response To Previous Treatment: Not applicable Family / Caregiver Present: No Follows Commands: Within Functional Limits Subjective Subjective: RN and pt agreeable to PT. Pt supine in bed upon arrival, very pleasant and cooperative throughout. Social/Functional History Social/Functional History Lives With: Parent Type of Home: House Home Layout: Able to Live on Main level with bedroom/bathroom, Performs ADL's on one level, Two level Home Access: Stairs to enter without rails Entrance Stairs - Number of Steps: 3 steps Bathroom Shower/Tub: Tub/Shower unit Bathroom Toilet: Standard Bathroom Equipment: Grab bars in shower, Toilet raiser Bathroom Accessibility: Accessible Home Equipment: Cane, quad, Cane, Walker, rolling Has the patient had two or more falls in the past year or any fall with injury in the past year?: No Receives Help From: Family ADL Assistance: Independent Homemaking Assistance: Independent Homemaking Responsibilities: Yes Meal Prep Responsibility: Primary Laundry Responsibility: Primary Cleaning Responsibility: Primary Shopping Responsibility: Primary Health Care Management: Primary Ambulation Assistance: Independent Transfer Assistance: Independent Active Director It: Yes Mode of Transportation: SUV 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 Vision/Hearing Vision Vision: Within Functional Limits Hearing Hearing: Within functional limits Cognition Orientation Overall Orientation Status: Within Functional Limits Cognition Overall Cognitive Status: Exceptions Safety Judgement: Decreased awareness of need for assistance;Decreased awareness of need for safety Insights: Decreased awareness of deficits Objective Gross Assessment Tone: Normal Sensation: Impaired (pt reports numbness from the genitals and extending into BLE, with RLE being worse than LLE) Joint Mobility Spine: WFL ROM RLE: WFL ROM LLE: WFL ROM RUE: WFL ROM LUE: WFL Strength RLE Comment: grossly 4-/5 Strength LLE Strength LLE: WFL Strength RUE Strength RUE: WFL Comment: formally assessed by OT Strength LUE Strength LUE: WFL Comment: formally assessed by OT Bed mobility Supine to Sit: Modified independent (HOB elevated) Sit to Supine: (retired to bedisde chair following ambulation) Scooting: Independent Transfers Sit to Stand: Contact guard assistance Stand to sit: Contact guard assistance Ambulation Surface: level tile Device: No Device Assistance: Contact guard assistance;Minimal assistance (Min A for 4-5 LOB) Quality of Gait: unsteadiness increases with turning or distractions, RLE ataxia noted- cues to increased step height and achieve TKE in RLE stance to improve balance Gait Deviations: Staggers;Decreased step height;Decreased arm swing Distance: 250ft Stairs/Curb Stairs?: Yes Stairs # Steps : 3 Stairs Height: 6 Rails: Left ascending Assistance: Contact guard assistance Comment: mildly unsteady, difficulty with RLE foot placement Balance Posture: Good Sitting - Static: Good Sitting - Dynamic: Good Standing - Static: Fair;+ Standing - Dynamic: Fair Comments: standing balance assessed without AD AM-PAC Score AM-PAC Inpatient Mobility Raw Score : 20 (02/15/221417) AM-PAC Inpatient T-Scale Score : 47.67 (02/15/221417) Mobility Inpatient CMS 0-100% Score: 35.83 (02/15/221417) Mobility Inpatient CMS G-Code Modifier : CJ (02/15/221417) Goals Short Term Goals Time Frame for Short term goals: 10 visits Short term goal 1: Perform bed mobility and functional transfers independently Short term goal 2: Ambulate 600ft independently Short term goal 3: Ascend/descend 10 steps independently Short term goal 4: Demo Good dynamic standing balance Education Patient Education Education Given To: Patient Education Provided: Plan of Care;Role of Therapy Education Method: Verbal Barriers to Learning: None Education Outcome: Verbalized understanding Therapy Time Individual Concurrent Group Co-treatment Time In 1016 Time Out 1037 Minutes 21 Timed Code Treatment Minutes: 8 Minutes Zofia Mak PT Images from the original note were not included. [facility] [facility] Neurology IN-PATIENT SERVICE [facility] Resident Progress Note Date: 02/15/2022 Patient name: Juice White Date of admission: 02/13/2022 9:07 PM Account: [id number] Date of : 1990 PCP: CORONA Lafleur CNP Room: 0136/0136-01 Code Status: Full Code Today's Examination & Encounter: The patient was seen and examined today and the chart was reviewed. The patient was admitted on 02/13/2022. Today is day 2 hospitalization. No acute events overnight.Vitally stable. Day 1 of IVMP, had 1500 mg so far IV with some improvement in his bilateral lower ext. Brief History & Hospitalization Course: This is a 31 y.o. male with history of MS 5 years ago presented on 02/13/2022 with progressive bilateral lower extremity tingling and numbness more on the right side compared to left. He also presented with constipation and urinary retention with MRI (brain, C, T and lumbar spines) showing transverse myelitis at the level of T11-T12 The patient has a past hx of anxiety, depression, head trauma, seizure secondary to head trauma, not on antiepileptic medications currently with last seizure event 2 years ago. Patient's neurological examination; showed decreased sensation right greater than left to pinprick, temperature and vibration with reflexes 3+, 5/5 strength. Subjective: Patient reported feeling better today with some sensory improvement in his legs ROS Constitutional Negative fever, Negative chills, Negative fatigue HENT Negative change in vision or hearing Respiratory Negative cough, Negative shortness of breathing Cardiovascular Negative chest pain, Negative palpitations, Negative leg swelling. Gastrointestinal Negative nausea, Negative vomiting, Negative diarrhea. Genitourinary Negative increased frequency, Negative urgency. Musculoskeletal Negative No myalgia or arthralgia. Skin Negative rashes or scarring or bruises. Neurological Negative headache, Negative paresthesia, Negative focal weakness. Endo/Heme/Allergies Negative for itchy eyes or runny nose. Psychiatric/Behavioral Negative anxiety or depressed mood. Objective: PHYSICAL EXAM: Blood pressure 132/69, pulse 72, temperature 98.1 F (36.7 C), temperature source Oral, resp. rate 14, SpO2 95 %. General Examination General Resting comfortably in bed Head Normocephalic, without obvious abnormality Neck Supple, symmetrical. Good ROM. No midline or paraspinal tenderness. Lungs Respirations unlabored, no wheezing Chest Wall No deformity, equal diaphragm elevation bilaterally Heart RRR, no murmur Abdomen Soft. Non-tender, non-distended Extremities No cyanosis or edema or warmth. Pulses 2+ and symmetric Skin: Skin turgor normal, no rashes or lesions Mental status Alert. Oriented to person, place, and time. Speech Speech exam is intact, no dysarthria or aphasia Cranial nerves II - visual aleman intact III, IV, - extra-ocular muscles full and intact No nystagmus. Pupils symmetric and responsive to light and accomodation. V - sensation symmetric, Jaw reflex normal. VII - No facial droop or asymmetric NLF VIII - intact hearing to conversational tone IX, X - symmetrical palate elevation XI - 5/5 strength symmetric XII - tongue midline and no deviation Motor function Strength: Right Side: Left Side: 5/5 Upper Ext 5/5 upper Ext 5/5 Lower Ext 5/5 Lower Ext Bulk: grossly normal no atrophy Tone: symmetric b/l arms and legs, no spasticity Abnormal movements: No abnormal movements or tremor Sensory function Bilateral lower decreased sensation to all sensory modalities (R>L) Cerebellar No dysmetria or dysdiadochocinesia Reflex function Deep tendon reflexes: Right Side: Left Side: +++ biceps +++ biceps +++ brachioradialis ++ +brachioradialis ++ +patellar +++ patellar +++ calcaneal +++ calcaneal Babinski sign negative Babinski sign negative Dimas sing negative Dimas sign negative Gait Examined with PT/OT Investigations: Laboratory Testing: Recent Results (from the past 24 hour(s)) POC Glucose Fingerstick Collection Time: 02/14/22 6:38 PM Result Value Ref Range POC Glucose 194 (H) 75 - 110 mg/dL POC Glucose Fingerstick Collection Time: 02/14/22 9:34 PM Result Value Ref Range POC Glucose 156 (H) 75 - 110 mg/dL POC Glucose Fingerstick Collection Time: 02/15/22 7:38 AM Result Value Ref Range POC Glucose 158 (H) 75 - 110 mg/dL Imaging/Diagnostics: MRI LUMBAR SPINE WO CONTRAST Result Date: 02/14/2022 EXAMINATION: MRI OF THE LUMBAR SPINE WITHOUT CONTRAST, 02/14/2022 1:41 am TECHNIQUE: Multiplanar multisequence MRI of the lumbar spine was performed without the administration of intravenous contrast. COMPARISON: CT abdomen and pelvis 08/18/2015. HISTORY: ORDERING SYSTEM PROVIDED HISTORY: r/o cauda equina vs MS TECHNOLOGIST PROVIDED HISTORY: r/o cauda equina vs MS Reason for Exam: r/o cauda equina FINDINGS: Motion artifact limits evaluation. BONES/ALIGNMENT: There is normal alignment of the spine. The vertebral body heights are maintained. The bone marrow signal appears unremarkable. SPINAL CORD: The conus terminates normally. SOFT TISSUES: No paraspinal mass identified. L1-L2: There is no significant disc herniation, spinal canal stenosis or neural foraminal narrowing. L2-L3: There is no significant disc herniation, spinal canal stenosis or neural foraminal narrowing. L3-L4: There is no significant disc herniation, spinal canal stenosis or neural foraminal narrowing. L4-L5: There is no significant disc herniation, spinal canal stenosis or neural foraminal narrowing. L5-S1: Annular fissure, disc bulge. There is no spinal canal stenosis or neural foraminal narrowing. No significant spinal canal or neural foraminal stenosis in the lumbar spine. No abnormal cord signal. Annular fissure at L5-S1 disc. RECOMMENDATIONS: Unavailable MRI CERVICAL SPINE W WO CONTRAST Result Date: 02/14/2022 EXAMINATION: MRI OF THE CERVICAL SPINE WITHOUT AND WITH CONTRAST 02/14/2022 10:09 am: TECHNIQUE: Multiplanar multisequence MRI of the cervical spine was performed without and with the administration of intravenous contrast. COMPARISON: 08/19/2015. HISTORY: ORDERING SYSTEM PROVIDED HISTORY: eval for MS lesions TECHNOLOGIST PROVIDED HISTORY: eval for MS lesions Decision Support Exception - unselect if not a suspected or confirmed emergency medical condition->Emergency Medical Condition (MA) Reason for Exam: Evaluate for MS Lesions - Bladder problem and Difficulty Walking. Initial evaluation. FINDINGS: BONES/ALIGNMENT: The vertebral body heights appear maintained. Straightening of the normal cervical lordosis. No evidence of spondylolisthesis. The bone marrow signal demonstrates no acute abnormality. SPINAL CORD: There appears to be T2 hyperintensity within the left dorsal aspect of the cord at the lower C2 level without associated enhancement. No additional focus of abnormal cord signal is confidently identified. No abnormal enhancement is seen of the cervical cord. SOFT TISSUES: No paraspinal mass identified. C2-C3: There is no significant disc bulge, spinal canal stenosis or neural foraminal narrowing. C3-C4: There is no significant disc bulge, spinal canal stenosis or neural foraminal narrowing. C4-C5: There is no significant disc bulge, spinal canal stenosis or neural foraminal narrowing. C5-C6: There is no significant disc bulge, spinal canal stenosis or neural foraminal narrowing. C6-C7: There is no significant disc bulge, spinal canal stenosis or neural foraminal narrowing. C7-T1: There is no significant disc bulge, spinal canal stenosis or neural foraminal narrowing. 1. There is suggestion of T2 hyperintensity within the left dorsal aspect of the cord at the lower C2 level without associated enhancement. 2. No additional area of abnormal cord signal. 3. Straightening of the normal cervical lordosis without spondylolisthesis. 4. No significant spinal canal stenosis or neural foraminal narrowing. MRI THORACIC SPINE W WO CONTRAST Result Date: 02/14/2022 EXAMINATION: MRI OF THE THORACIC SPINE WITHOUT AND WITH CONTRAST 02/14/2022 10:09 am TECHNIQUE: Multiplanar multisequence MRI of the thoracic spine was performed without and with the administration of intravenous contrast. COMPARISON: None HISTORY: ORDERING SYSTEM PROVIDED HISTORY: eval for MS exac TECHNOLOGIST PROVIDED HISTORY: eval for MS exac Decision Support Exception - unselect if not a suspected or confirmed emergency medical condition->Emergency Medical Condition (MA) Reason for Exam: Evaluate for MS Lesions - Bladder problem and Difficulty Walking. Initial evaluation. FINDINGS: Motion degrades images limiting evaluation. BONES/ALIGNMENT: The vertebral body heights appear maintained. There is no evidence of spondylolisthesis. The bone marrow signal demonstrates no acute abnormality. SPINAL CORD: There is T2 hyperintensity within the dorsal aspect of the cord at T11-T12. Associated enhancement is seen. No additional focus of abnormal cord signal seen. SOFT TISSUES: No paraspinal mass identified. DEGENERATIVE CHANGES: No significant spinal canal stenosis or neural foraminal narrowing of the thoracic spine. 1. T2 hyperintensity within the dorsal aspect of the cord at T11-T12 with associated enhancement. This is compatible with patient's history of multiple sclerosis with active demyelination. 2. No significant spinal canal stenosis or neural foraminal narrowing of the thoracic spine. MRI BRAIN W WO CONTRAST Result Date: 02/14/2022 EXAMINATION: MRI OF THE BRAIN WITHOUT AND WITH CONTRAST 02/14/2022 10:09 am TECHNIQUE: Multiplanar multisequence MRI of the head/brain was performed without and with the administration of intravenous contrast. COMPARISON: 04/29/2016. HISTORY: ORDERING SYSTEM PROVIDED HISTORY: eval for MS lesions TECHNOLOGIST PROVIDED HISTORY: eval for MS lesions Decision Support Exception - unselect if not a suspected or confirmed emergency medical condition->Emergency Medical Condition (MA) Reason for Exam: Evaluate for MS Lesions - Bladder problem and Difficulty Walking. Initial evaluation. FINDINGS: INTRACRANIAL STRUCTURES/VENTRICLES: There is no evidence of an acute infarct. There are areas of T2 FLAIR hyperintensity involving the periventricular and subcortical white matter bilaterally. There appear to be several new lesions when compared the prior exam including 1 within the left angle. A T2 hyperintense focus within the right brachium pontis appears similar to the prior exam. No associated contrast enhancement is seen. No abnormal enhancement is seen within the brain. There is minimal global parenchymal volume loss. Otherwise, the size and configuration of the ventricles and sulci appear normal. The normal signal voids within the major intracranial vessels appear maintained. No evidence of an acute intracranial hemorrhage. Sequelae of a remote hemorrhage involving the mesial right frontal lobe appears unchanged. ORBITS: The visualized portion of the orbits demonstrate no acute abnormality. SINUSES: Scattered mucosal thickening of the paranasal sinuses. Trace opacification of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 IntraVENous, at 937.5 mL/hr, Administer over 8 Minutes, PRN, Other, Blood glucose 40 - 69 mg/dL and patient NOT ALERT or NPO, Starting on Mon02/14/22 at 0348
Repeat blood glucose in 15 minutes. If blood glucose remains LESS THAN 70 mg/dL, repeat treatment and recheck blood glucose in 15 minutes x 2. If using glycemic management system, dose as instructed per system. If blood glucose remains LESS THAN 70 mg/dL after 2 intravenous boluses start dextrose 10% at 100 mL/hour and notify provider.
Or dextrose bolus 10% 250 mLJump to med 250 mL, IntraVENous, at 937.5 mL/hr, Administer over 16 Minutes, PRN, Other, Blood glucose LESS THAN 40 mg/dL and patient NOT ALERT or NPO, Starting on Mon02/14/22 at 0348
Repeat blood glucose in 15 minutes. If blood glucose remains LESS THAN 70 mg/dL, repeat treatment and recheck blood glucose in 15 minutes x 2. If using glycemic management system, dose as instructed per system. If blood glucose remains LESS THAN 70 mg/dL after 2 intravenous boluses start dextrose 10% at 100 mL/hour and notify provider.
Group 3: ondansetron (ZOFRAN-ODT) disintegrating tablet 4 mgJump to med 4 mg, Oral, EVERY 8 HOURS PRN, Starting on Mon02/14/22 at 0348, Until Discontinued, Nausea, Vomiting Or ondansetron (ZOFRAN) injection 4 mgJump to med 4 mg, IntraVENous, EVERY 6 HOURS PRN, Starting on Mon02/14/22 at 0348, Until Discontinued, Nausea, Vomiting
Administer if oral route cannot be used.
Scheduled Medication Order 02/17/2022 02/18/2022 02/19/2022 methylPREDNISolone sodium (SOLU-MEDROL) 1,000 mg in sodium chloride 0.9 % 250 mL IVPB (COMPLETED) 1,000 mg, IntraVENous, at 500 mL/hr, Administer over 30 Minutes, ONCE, On 02/19/22 at 1300, For 1 dose 1513 (New Bag - Prov ider: John Thao RN)1606 (Stopped - Provider: John Thao RN) Scheduled Medication Order 03/06/2022 03/07/2022 03/08/2022 methylPREDNISolone sodium (SOLU-MEDROL) injection 125 mg (COMPLETED) 125 mg, IntraVENous, ONCE, On Mon03/08/22 at 1630, For 1 dose 1642 (Given - Provid er: Maddy Trotter RN) Care Teams (unrecognized sec tion and content) Director Marketing Relationship Specialty Start Date End Date Lexus Ko APRN - [employer] [address] [place] [address] PCP - General Nurse Practitioner 07/28/20 Director Marketing Relationship Specialty Start Date End Date Lexus KoYUEN - [employer] [address] [place] [address] PCP - General Nurse Practitioner 07/28/20 Director Marketing Relationship Specialty Start Date End Date Helga Cruz [address] [place] [address] PCP - General Family Medicine 03/08/22 Director Marketing Relationship Specialty Start Date End Date Daily Cruzd Dustin [address] [place] [address] PCP - General Family Medicine 03/08/22 Director Marketing Relationship Specialty Start Date End Date No Pcp, [place] [address] PCP - General Family Medicine 10/08/18 Director Marketing Relationship Specialty [place] [address] [place] [address] PCP - General Family Medicine 03/08/22 Director Marketing Relationship Specialty Start Date End Date No Pcp, [place] [address] PCP - General Family Medicine 10/08/18 Director Marketing Relationship Specialty Start Date End Date No Pcp, [place] [address] PCP - General Family Medicine 10/08/18 Director Marketing Relationship Specialty Start Date End Date No Pcp, [place] [address] PCP - General Family Medicine 10/08/18 Director Marketing Relationship Specialty Start Date End Date No Pcp, [place] [address] PCP - General Family Medicine 10/08/18 (unrecognized sect ion and content) No Status Records FoundNo Status Records FoundNo Status Records FoundNo Status Records FoundNo Status Records FoundNo Status Records Found INFORMATION SOURCE (unrecogn ized section and content) DATE CREATED AUTHOR 03/08/[address] [facility] DATE CREATED AUTHOR AUTHOR'S ORGANIZ ATION [facility] DATE CREATED AUTHOR AUTHOR'S ORGANIZ ATION 06/23/2024 [facility] DATE CREATED AUTHOR AUTHOR'S ORGANIZ ATION 06/28/2024 [facility] DATE CREATED AUTHOR AUTHOR'S ORGANIZ ATION 08/27/2024 [facility] DATE CREATED AUTHOR AUTHOR'S ORGANIZ ATION 09/02/2024 [facility] FOR RECORDS PERTAINING TO PATIENTS WHO ARE OR HAVE BEEN ENROLLED IN A CHEMICAL DEPENDENCY/SUBSTANCEABUSE PROGRAM, SOME INFORMATION MAY BE OMITTED. This clinical summary was aggregated from multiple sources. Caution should be exercised in using it in the provision of clinical care. This summary normalizes information from multiple sources, and as a consequence, information in this document may materially change the coding, format and clinical context of patient data. In addition, data may be omitted in some cases. CLINICAL DECISIONS SHOULD BE BASED ON THE PRIMARY CLINICAL RECORDS. [employer] [facility]. provides no warranty or guarantee of the accuracy or completeness of information in this document.
--- OUTSIDE RECORDS SUMMARY | 2024-09-09 08:08 | XMS_ITS | CCD ---
Author Organization [facility] Care Team Providers Care Storeroom Supervisor Name Role Phone Seal WATCH PARTS GRINDER Chante ODILONLexus Primary Care Provider Helga Cruz Primary Care Provider TIMBO GILBERT Consulting Unavailable NICK GENTILE Attending Unavailable BLUNT, HELGA M Primary Care Unavailable Blunt, Helga M Primary Care Provider BLUNT HELGA M Primary Care Unavailable GENO, ABED E Admitting Unavailable GENO, ABED E Attending Unavailable No Pcp, No Pcp Primary Care Provider Unavailabl e BLUNT, HELGA M Primary Care Unavailable BITE V, CEFERINO Referring Unavailable BITE V, CEFERINO Attending Unavailable Helga Cruz MD Primary Care Provider [phone] CARLOS ALBERTO GONZALEZ Referring Unavailable NO PCP, [...] Unavailable Bite DO, Ceferino V Attending Unavailable Rogelio Mae Attending Unavaila ble Allergies Allergy Classification Reported Allergen(s) Allergy Type Date of Onset Reaction(s) Facility (13 sources) Penicillins; Translations: [PENICILLINS] Propensity to adverse reactions to drug 12-31-2013 [facility] Medications Current Medications Medication Drug Class(es) Dates [...] (4 sources) Proton Pump Inhibitor Start: End: take 1 tablet by mouth [...] PRN, When mainline IV needed., Starting on Mon12/28/23 at 0931, Match IVF to base solution [...] adverse reactions (from treatment/therapy plan)., Starting on Mon01/17/24 at 0823, For 2 doses, Should not [...] on Mon02/14/22 at 0900 polyethylene glycol 3350 54495 mg powder for oral solution (1 source) [...] 10-26-2016 Chronic Multiple sclerosis (20 sources) H/O: ELEMENTARY TUTOR disorder; Translations: [Multiple sclerosis] Onset: 01-20-2014 Chronic [...] tuberculin stim IFN-g Ql (Bld) Negative Normal [facility] Comment on above: Order Comment: Abi carpio Type: BLOOD SPECIMEN Ordering Facility: [facility] Address: [address] [place] [address] Performed By: #### I NTPGP #### [facility] CLIA [id number] [address] [place] [address] [place] [facility] MITOGEN MINUS NIL >9.92 Normal >=0.50 [facility] Comment on above: Order Comment: Abi carpio Type: BLOOD SPECIMEN Ordering Facility: [facility] Address: [address] [place] [address] Performed By: #### I NTPGP #### [facility] CLIA [id number] [address] [place] [address] OF [place] TB GAMMA INTERPRETATION Infection with M. tuberculosis complex is unlikely. If latent tuberculosis infection is highly suspected, a negative result does not rule out the infection. Specimens from immunocompromised patients and those <5 years of age may show false negative results. In case of a contact investigation, please repeat 8-12 weeks after a known exposure. Normal [facility] Comment on above: Order Comment: Abi carpio Type: BLOOD SPECIMEN Ordering Facility: [facility] Address: [address] [place] [address] Performed By: #### I NTPGP #### [facility] CLIA [id number] [address] [place] [address] [place] TB NIL 0.08 IU/mL Normal <=8.[address] [facility] Comment on above: Order Comment: Speci men Type: BLOOD SPECIMEN Ordering Facility: [facility] Address: [address] [place] [address] Performed By: #### I NTPGP #### [facility] CLIA [id number] [address] [place] [address] [place] TB1 AG MINUS NIL 0.10 IU/mL Normal <0.35 [facility] Comment on above: Order Comment: Speci men Type: BLOOD SPECIMEN Ordering Facility: [facility] Address: [address] [place] [address] Performed By: #### I NTPGP #### [facility] CLIA [id number] [address] [place] [address] [place] TB2 AG MINUS NIL 0.01 IU/mL Normal <0.35 [facility] Comment on above: Order Comment: Speci men Type: BLOOD SPECIMEN Ordering Facility: [facility] Address: [address] [place] [address] Performed By: #### I NTPGP #### [facility] CLIA [id number] [address] [place] [address] [place] Rad - CT Reporton 08-26-2024 Rad - CT Report [id number]#1 .00OTGTIFF Normal [facility] BLOOD TB SCREEN, INCUBATEDon 08-18-2024 M. tuberculosis tuberculin stim IFN-g Ql (Bld) Negative Normal [facility] Comment on above: Order Comment: Speci men Type: BLOOD SPECIMEN [facility] Address: [address] [place] [address] Performed By: #### I NTPGP #### [facility] CLIA [id number] [address] [place] [address] [place] MITOGEN MINUS NIL >9.90 Normal >=0.50 [facility] Comment on above: Order Comment: Speci men Type: BLOOD SPECIMEN Ordering Facility: [facility] Address: [address] [place] [address] Performed By: #### I NTPGP #### [facility] CLIA [id number] [address] OF [facility] TB GAMMA INTERPRETATION Infection with M. tuberculosis complex is unlikely. If latent tuberculosis infection is highly suspected, a negative result does not rule out the infection. Specimens from immunocompromised patients and those <5 years of age may show false negative results. In case of a contact investigation, please repeat 8-12 weeks after a known exposure. Normal [facility] Comment on above: Order Comment: Speci men Type: BLOOD SPECIMEN Ordering Facility: [facility] Address: [address] [place] [address] Performed By: #### I NTPGP #### [facility] CLIA [id number] [address] TB NIL 0.10 IU/mL Normal <=8.[address] [facility] Comment on above: Order Comment: Speci men Type: BLOOD SPECIMEN Ordering Facility: [facility] Address: [address] [place] [address] Performed By: #### I NTPGP #### [facility] CLIA [id number] [address] [place] [address] [place] TB1 AG MINUS NIL 0.03 IU/mL Normal <0.35 [facility] Comment on above: Order Comment: Speci men Type: BLOOD SPECIMEN Ordering Facility: [facility] Address: [address] [place] [address] Performed By: #### I NTPGP #### [facility] CLIA [id number] [address] [place] [id number] [place] TB2 AG MINUS NIL 0.02 IU/mL Normal <0.35 [facility] Comment on above: Order Comment: Speci men Type: BLOOD SPECIMEN Ordering Facility: [facility] Address: [address] [place] [address] Performed By: #### I NTPGP #### [facility] CLIA [id number] [address] [place] [address] [place] [address] [place] Release of Informationon Release of Information [id number]# [facility]son 06-25-2024 Outside Records [id number]#1 .[facility] Rad - MRI Reporton Rad - MRI Report [id number]#1 .[facility] Brain [facility] and W contrast I Von 06-20-2024 Stable white matter lesions from prior exam. No diffusion restriction or contrast enhancement to suggest acute demyelination. Stable sequela of a remote hemorrhage. [facility] RIS CONSOLIDATED EXAMINATION: MRI OF THE [...] The soft tissues demonstrate no acute abnormality. [facility] Antoine Armstrong MD - 06/20/2024 EXAMINATION: MRI OF THE [...] demyelination. Stable sequela of a remote hemorrhage. [facility] Radiology Study observation (narrative) [facility] MR Brain WO and W contrast I VOrdered By: Antoine Jerry on 06-20-2024 [facility] MRI BRAIN W WO CONTRASTon MRI BRAIN [...] Antoine Jerry MD 06/20/24 Final result Normal [facility] Outside Recordson 04-19-2024 Outside Records [id number]#1. [facility] - Other Pathology Report on 04-16-2024 Lab - Other Pathology Report [id number]#1 .[facility] Operative Reporton 4 Operative Report [id number] 1 [id number] #1.00[facility] OPERATIVE REPORTon 4 [place] [address] OPERATIVE REPORT PATIENT NAME:JUICE WHITE :1990 MED REC NO:[id number] ROOM:[facility] ACCOUNT NO:[id number] ADMIT DATE:03/26/2024 PROVIDER:Parrish Lora MD DATE OF [...] cysts situation. PARRISH LORA MD AEA/AQS Doc#: [id number] [facility] Surgical Pathology Reporton 03-26-2024 Surgical Pathology Report (NOTE) Path Number: [id number] -- Diagnosis -- Skin and subcutaneous tissue, [...] Microscopic Description Microscopic examination performed. Processing Lab: [address] [address] Interpretation Performed at [address] [address] SURGICAL PATHOLOGY CONSULTATION Patient Name: JUICE WHITE Med Rec: [id number] [facility] ANATOMIC PATHOLOGY [address] [place] [address] [facility] Coding Summaryon 11-14-2023 Coding Summary HTMLBase 64 UrjrmufiSTg2wRk+PGhlY WQ+KR3XSIHmE08zdULixO 3vW8VMAMgVEumpAIVKUDl SUhHqqwGwWZ9pqUNiZYJi IC8+HX7oLZWvVyubaHFcw 3B3hHP3I45saz6kSAbwyU T8RABjVpFefahcp7xhkBm 6IDcuNmluOyBt JIQylT49OGY1gN76Xa98i XSbtIIum1kbhOi3VeJmIV JzEZX6dYmmBQdbn4VvGNQ oQ71czDHxk7K5 CWPdcEgehODnZrCroRD1m H0gDYpnzfqkt0ndjwtbJa i3ug87qKPkv8M9aDT8Y4S uxxI2RBQarPVx NjbneUPFfH9rrycpx3sqy nkvBgMjNJYwJPz9KTn0DO SlkZdvZpYlBM73JKY8MAZ gydSeI2WbRJAy uFpxJeJ8o2M9Kp9YB7JZK tqoK2TZLAZMIKxnwAZ+PC 98vu49M3HjXywwQay9DMM yZHD7lND1nI3p EYIbMAngp8B3cRG9O6Sfi aSowr5ql4eoRIQqBGiwR9 7sdHJdz8O0ZZYwqPQ5AXO epNfrLrAjmA86 Oyc+JRZwuNrqe4BqFvtak 5xla6rmsAs5XaaxGBPvac WfbZvrSUS6s8ClOe2jHPR qwSD4hSC8aD4q LwTsVoD0DXkiF997VsMgi QEsJmxdT02wL2ZaoYO+PH PoIiq1KSPteXgmWX2iB4O hZGRpbmctbGVm qVahFP6sACKytswgVVBdp H9uEHToN2x7VnZzLqI7GS afX9QhMNXehufsRa89oR4 sWdGhPnG1TBwm M1LsfwL7EMSqfUFeZOniX OJ6V42cy9V6KIWqVGSlSZ A5xPX1jN6zfPkudvjqkCI mdDsgdmVydGlj ZZlpNVmoG406CJUskBbaS kNvZGluZyBEYXRlOiAgMD YvMTgvMjAyNDwvdGQ+PHR pFTW5fPdyINUl mZSiYWavDo6lfZgdiGavC W1iLUUcdjwjHSEhsC6dUE IqlZWxlUyvEB1bDXRxehj ej093XnSaWOP5 PGUdqWItB1QgsM9wBfKtV YHaBRCcB6OddCWhHKslN8 54UOicStC0PUHegwIiI1D sLWFsaWduOiB0 g4T0Fr2Sc7SieiqhX8Nky XLxHbEwNervXDd8J5CxGb wvdHI+RZ39LIKoVS89CGk 0YIE5aNytKJus HXAfU2IdwN9sEeWxDGFhS GRkOyc+PHRhYmxlIHdpZH RoPScxMDAlJyBzdHlsZT0 wSp7tLMCjECSi fNxhoLYnXoMxg4jvPPMcE RmxON9ztEwjC3JotFE1HF Jke5t5Ct96N44hQ9NjfAO +HLSldJO9tIH7 hK0cZjWeFfQ9OLhtM784R hXoeXPoFirfp4siw9axmW m8NaY1OPVuzjHzeLqxJGK 4z2ExVt49X48u IHdpZHRoPSIxNSUiIHZhb Aaime9cvR5nCw3+PGNvbC W0uMY1fY2fEjClViM1JYm mD345HcDamKVx Lsxbv6nmm2zvmAe7MkQdN SLuzxBwmEquXLR2f0PoBn 53E2CkaDqdi1RqJyx9sj0 1bBRgw4Z3tNW8 S8HnLPAjnwqzlYDacJlfA G9hDJCxyixhJBXyzK8hLX JdB8k7EdXrFxC3NXhtB8L ynvG1XECusCOa LZUooOBCiM8cgspio1col vmcOuWtNVIkLPv4RTq6CA YipCfsFqBuSDD0PhE8FON 2wSIvaP3ywBxa sltamQ1fYto+SCA1tKMsi NEUWP3cIshqtCB+PHRkIH W5vLcrJWpaBDGtxR4qKHJ zH5t5JyYwEcC4 MNeuA7CyyzQ0JIBxsUUxS GGogCIYuZ8zhrevb2ynhr arPnOdBAHgOZw3CHj6SDW saWduOiBsZWZ0 ZsA2OZD1iZPznB6ynCxhr wmwtE2nDxk+QmlydGggRG I9YQn0B7ZjDew3XHVnrUe pID3ucCKdUFuz Mu6cwAyazBacDG9rLNObs zpti396FnFok9nwIAZutM BsSYegZDH7Y00mf9F0YME vMZHhEZY6lMI7 iE7jqZvbeipejOLdlYyre rWerQgqXQotIOvvI972YT KcwYlbArGlKLq2U9VlTdo 0TBBjvWxfRM1v rKRmSVlyNl2xiKnepEetQ K7zEMUzwmghw455CyTsz3 yxMVJpfEDmVSdnIRV9V00 hx2G9MJWdNHEw CBE7ePT1aM2hfOmvlvzrb GVmdDsgdmVydGljYWwtYW uqI302DDSqvQejWsObvZo 4M0CjHom0IHYp tDjfFR8hoIMzPQnxUc9dv GqdeSciCC9nVXEbksnde7 82KsFnt1lvVOBjhXAiENr zXXB6H17ec9C5 UPMrQYEqZKW7mGI1pO7pl GlnbjogbGVmdDsgdmVydG gjKXphTTugW317PJApkSg nPlBhdGllbnQg WSmrYRm7K8EvHyyweKO+P F13GJSeOZ07uGAnlAAue1 hobPp4StLsBCPaILO8aUp uPDrvt5ViUGNb Y99neEWdo5G3ZJTbeRjtp EFvXfUuwVP7jZ8tEOcyet qqc2xtxiqoGnnaz5mfpj2 7qX63W41jIVij ZHRoPSIzMCUiIHZhbGlnb k7tvI8wQy7+ZXRwoZV9fD O4yD3tDVYhNsK8QZeuC17 9InRvcCIvPjxj z0auo6qqcUc0WkT9JPWyh sXokPpqACF3n3IsFe31J0 9sIHdpZHRoPSIyMCUiIHZ ezLglsw8bhO4g Ii8+OPLpePZ3bXD1iB3dB dEzMaQ8UPmxC309PuFnpJ OlBsqlT68wU4SrcIP+PHR aUef0BLTviMuc QY1mkOFoTBvvXs4eRNA4G cPiGvYkANrxC0AzQUGzux wsrdfpjJY4HFNfCQAbyB9 1Bv0cwXdjNOJe zQMQfJ5uhmqdm2zwvkpdF zGdXGBpPGj7NOt3ATCfnA eeWbIlULD6StK2QMC3zCC jkY0abRgqzyba qJ7zS0MhBQMrtbxqKa73k K7iJtOsCoM5TRkhMzw+TU 3HL7IdTHGZBDTQBkYGNHA KRVWEXP57CY21 jQSse7Q9wUO1S1AxNMGxw nibhikhmJM4BMOoGPKxwF 54wPXdKZxsPr9rv6S5j09 2MKDoPBJwlE55 Vi5utKubOXIgeUKPvF7ur wfqk0blfavdRcIwLMIdQZ e6SZc6LJAxyYodTsJrSFH 5FiF5QQU7sOQc lA6kqVagmkjugR4qLdf+M TtzCQLvCNy1MMnuxJW+PH YpDKV8wAwvVUabVQQnvO5 pDEMcC7u2QnGv SpR5JAaoW8UzIKLimwwmK l81oD0cJwCrFbL1PQerF7 ZznnZ2JOPkzBKjALkyKRH 5F12oj7J7TMPm OCIdGIV7eZJ2kF2daCdfl jogbGVmdDsgdmVydGljYW sjISamY854BXMnlXieVrT 4SEdyMRZtCP13 WM95yEQdu7K9zFU0T7BaE PDulxgcndsqmNU2CXRcAN MrjI24wMHfCEqtZa9bs8E 4h462EIJfRDMp iU45Cz6jqEaeZMBjjEBYc K7aazpov4hzmeuwCnFsUX CiTOg7LEs1MRHlaHppLhO rOZJ8LhK2LKR3 fJYefQ3sgUbisweigR3kK yc+TUFMRTwvdGQ+PHRkIH T2lLxhDFvrNILqpJ8mIHX vS0w5RkOwOqO5 VOxuR4WfIXRaasvhAv54g X7vHfKrAaD8DVuaN6Kyds U1JTRufXIpJOamEGI5A45 jp1U6HJCdUBJe DRX1uUI5aR2jhQdbkfele GVmdDsgdmVydGljYWwtYW zlK082VJBoxFqfWp6JBN5 9RB85J8GwVynj dGFibGU+PHRhYmxlIHdpZ HRoPScxMDAlJyBzdHlsZT 4xDm5jMXMcPIWztDrkmER rKuVmv6bhSXIc DRllWJ2thCqtD4WcgFL5J FVua8i9Bc57A31dM6CgsJ A+OKKfqOO2gTG8cQ5eLdC uNeD2QDxbY087 XaYtkWLhUihbk2phs8msk Dy9JfMdYXFzbeBmnTdxYW A8m3WlGp62Q83rQEwvEKS oPSIyMCUiIHZh uZwnjq0tuB7mFj6+PGNvb LB9iLJ3qR8pTsOwRxV7GV lrA476XnGorUVlYmvqB19 iS5ExoAK+PHRy Zsh2XYIdrHmgGF7umYAxB HkxTu5tYXK0VhLaAmBuKM djW2ReSPXfscjxnfsruFS 6ZGBeKBTrdD68 Bu2jcWccTh0lMVMsROD0H KLvjORpV7YrxP8wRmWuJH EeONKnC5VufBKnLAviM50 7KQjaCwP7QLKc nsUnE0JeRRFzuTjsXhA1v 8X8Cs3ShTpqvWLnHY2vGh CuUQa5T2HbDix3OBDecXb yBY8wxULqZFjo Wt8usFnpxLvmVW6wDDHet ywmo879LuPfa1wqHACctC VzGCpiETZ6L98nj9X1DPL xJJKjSRI1aGZ2 lH8ajJgihingvNMhyNhmz eIzbUxtYZqwTUyyB473DT OiqZdtJiLWQad1D9AgSmb 2HKRryPihZZ5m fHDxNSngZw1kxBfaqNelF O4nUDXhynjxc348FlEea1 lxVDDgnQTyZFhePIG8B13 gd3I5NNCdPSHc BPQ3jWH7cD3ynGktcndzi GVmdDsgdmVydGljYWwtYW zdN914HCXlaKapMd6MQbl 1M4CcNfb4ZHVg xWngBW4yoQTuKTbgDo7we EtuxPtdUT9iNCElmysgt5 54NoMrq1tcWULrzIOrSGq wYDK4C72ea0Y5 DJMcPCCiCAF7vZC9qH6ux GlnbjogbGVmdDsgdmVydG bwJZxoYDokW268RWRxxJk nPlBheWVyOjwv dGQ+QP23of81D1RwYpwcQ vj1USDdCZY9yWM9wL6qQA GbNLmac4D7eUH4G7IodfP qih0nc2gyKLUo ZTo (more content not included)... Normal [facility] QuantiFERON-TB Gold Pluson 0 11-10-2023 QuantiFERON-TB Gold Plus Negative Invalid Interpretation Code Negative [facility] Comment on above: Result Comment: No r esponse to M tuberculosis antigens detected. Infection with M tuberculosis is unlikely, but high risk individuals should be considered for additional testing (ATS/IDSA/CDC Clinical Practice Guidelines, 2017). The reference range is an Antigen minus Nil result of <0.35 IU/mL. Chemiluminescence immunoassay methodology Performed At: [address] [id number] Yue Garza PhD Ph:[phone] Performed By: #### 2 128440, 14301298, 30805282, 20604040, 8630069, 56753555, 5864265093, 6638683681, [id number] #### [facility] (DEFAULT) [address] [place] [address] QuantiFERON Incubation Incubation performed. Invalid Interpretation Code [facility] Comment on above: Result Comment: Perf ormed At: [address] [id number] Yue Garza PhD Ph:[phone] Performed By: #### 2 828177, 56077584, 11327065, 68636129, 5493227, 76484638, 3866363472, 9402986451, [id number] #### [facility] (DEFAULT) [address] [place] [address] HBSab Qnt LCon 11-09-2023 Hep B Surf Ab Quant LC 14.0 mIU/mL Invalid Interpretation Code Immunity>9.9 [facility] Comment on above: Result Comment: Stat us of Immunity Anti-HBs Level Inconsistent with Immunity 0.0 - 9.9 Consistent with Immunity >9.9 Effective November 27, 2023 the reference interval will be changing to: Immunity >10 Performed At: [address] [id number] Yue Garza PhD Ph:[phone] Performed By: #### 2 812896, 96076380, 64623870, 61453765, 9191957, 28626216, 9130535495, 7736899649, [id number] #### [facility] (DEFAULT) [address] [place] [address] Hep B Core Ab, Tot LCon 06- Hep B Core Ab, Tot LC Negative Invalid Interpretation Code Negative [facility] Comment on above: Result Comment: Perf ormed At: [address] [id number] Yue Garza PhD Ph:[phone] Performed By: #### 2 213921, 34932897, 38779545, 92395470, 6837279, 93645225, 5918350158, 8087413577, [id number] #### [facility] (DEFAULT) [address] [place] [address]1564 IGG Qn LCon 11-09-2023 Immunoglobulin G, Qn, Serum LC 1755 mg/dL High 603-1613 [facility] Comment on above: Result Comment: Perf ormed At: [address] [id number] Yue Garza PhD Ph:[phone] Performed By: #### 2 166032, 74971665, 25969573, 72617854, 2485683, 04272577, 8454499539, 1289812873, [id number] #### [facility] (DEFAULT) [address] [place] [address] IGM Qn LCon 11-09-2023 Immunoglobulin M, Qn, Serum LC 70 mg/dL Invalid Interpretation Code 20-172 [facility] Comment on above: Result Comment: Perf ormed At: [address] [id number] Yue Garza PhD Ph:[phone] Performed By: #### 2 260106, 52373295, 02165712, 42958506, 6137717, 03854302, 2893399391, 3784789661, [id number] #### [facility] (DEFAULT) [address] [place] [address] .Auto Diff 11-08-2023 Auto [place] % 8 % Normal 06-09 [facility] Comment on above: Performed By: #### 2 573983, 57842376, 39094247, 23566831, 6899928, 42310591, 8301912518, 6224930680, [id number] #### [facility] (DEFAULT) [address] [place] [address] Baso Abs# 0.1 x10 Normal 0.0-0.2 [facility] Comment on above: Performed By: #### 2 868440, 66146997, 39774920, 51737154, 6291237, 39964243, 4962499464, 9935525788, [id number] #### [facility] (DEFAULT) [address] [place] [address] Basophils/100 WBC (Bld) 1.1 % Normal 0.2-2.0 [facility] Comment on above: Performed By: #### 2 410330, 43205188, 18931469, 39635575, 6963884, 99893078, 2109027435, 5720549918, 14194128547 #### [facility] (DEFAULT) [address] [place] [address] Eos Abs# 0.3 x10 Normal 0.0-0.4 [facility] Comment on above: Performed By: #### 2 363505, 86431592, 77318971, 24596054, 0222517, 89830673, 9263957208, 0637870180, [id number] #### [facility] (DEFAULT) [address] [place] [address] Eosinophils/100 WBC (Bld) 3.0 % Normal 0.9-4.0 [facility] Comment on above: Performed By: #### 2 890982, 81385856, 89264874, 98545541, 8454840, 64125407, 2882888520, 6338241214, [id number] #### [facility] (DEFAULT) [address] [place] [address] Lymph Abs# 2.3 x10 Normal 1.3-2.9 [facility] Comment on above: Performed By: #### 2 849012, 35762424, 45345062, 16659592, 7284656, 73362180, 9259129981, 2573380880, [id number] #### [facility] (DEFAULT) [address] [place] [address] Lymphocytes/100 WBC (Bld) 20 % Normal 14-48 [facility] Comment on above: Performed By: #### 2 035657, 37110343, 63414298, 70884329, 6516285, 60350264, 2963993142, 6493380658, [id number] #### [facility] (DEFAULT) [address] [place] [address] [place] Abs# 0.9 x10 High 0.0-0.8 [facility] Comment on above: Performed By: #### 2 507648, 46607305, 26997534, 50150253, 9720965, 25091369, 8174738727, 4590771133, [id number] #### [facility] (DEFAULT) [address] [place] [address] Neut Abs# 7.6 x10 Normal 1.5-9.2 [facility] Comment on above: Performed By: #### 2 677539, 63411472, 37410135, 71708012, 7267793, 52923518, 1315177774, 4275181023, [id number] #### [facility] (DEFAULT) [address] [place] [address] Neutrophils/100 WBC (Bld) 68 % Normal 44-88 [facility] Comment on above: Performed By: #### 2 881096, 95789712, 43998678, 87701657, 8944622, 50602947, 2929136747, 5127193144, [id number] #### [facility] (DEFAULT) [address] [place] [address] CBC w/ Auto Diffon 4 Erythrocyte distribution width (RBC) [Ratio] 13.7 % Normal 11.5-15.0 [facility] Comment on above: Performed By: #### 2 336753, 77099103, 78155737, 20027948, 9295529, 29014273, 8071381676, 8049511188, [id number] #### [facility] (DEFAULT) [address] [place] [address] Hematocrit (Bld) [Volume fraction] 40.8 % Normal 34.8-51.9 [facility] Comment on above: Performed By: #### 2 445784, 59050884, 43878394, 34412975, 2911319, 43041224, 4520537974, 3888663613, 30822387162 #### [facility] (DEFAULT) [address] [place] [address] Hemoglobin (Bld) [Mass/Vol] 13.3 g/dL Normal 11.8-17.7 [facility] Comment on above: Performed By: #### 2 769639, 17678075, 95641721, 91372028, 6442504, 29555669, 6784801357, 0797754064, 34607440822 #### [facility] (DEFAULT) [address] [place] [address] Man Diff? Auto Invalid Interpretation Code [facility] Comment on above: Performed By: #### 2 597120, 12092482, 08052787, 61997833, 9925516, 49005913, 6454027145, 6395401132, 48345854723 #### [facility] (DEFAULT) [address] [place] [address] MCH (RBC) [Entitic mass] 29 pg Normal 24-34 [facility] Comment on above: Performed By: #### 2 555940, 10099408, 48744583, 03488904, 7523743, 88383030, 6870453939, 8193742787, 73760206889 #### [facility] (DEFAULT) [address] [place] [address] MCHC (RBC) [Mass/Vol] 32 g/dL Normal 26-37 [facility] Comment on above: Performed By: #### 2 076123, 50143539, 11784105, 01857652, 9917925, 13104095, 2056763805, 4892387203, 46627651474 #### [facility] (DEFAULT) [address] [place] [address] MCV (RBC) [Entitic vol] 90 fL Normal 81-100 [facility] Comment on above: Performed By: #### 2 188790, 74743097, 50615307, 09252814, 6625562, 43183370, 7544939784, 1100793405, 73090627380 #### [facility] (DEFAULT) [address] [place] [address] Platelet 405 x10 Normal 138-427 [facility] Comment on above: Performed By: #### 2 445578, 98340446, 50308819, 13766294, 7926205, 28142464, 8284756682, 8303958728, 16499510605 #### [facility] (DEFAULT) [address] [place] [address] Platelet mean volume (Bld) [Entitic vol] 8.6 fL Normal 6.3-10.2 [facility] Comment on above: Performed By: #### 2 671934, 97340549, 30893682, 18685891, 2374468, 03758882, 7650103926, 4299758972, 12870477988 #### [facility] (DEFAULT) [address] [place], [place] [id number] RBC 4.53 x10 Normal 3.70-5.30 [facility] Comment on above: Performed By: #### 2 256369, 64831048, 10212529, 29993819, 3039508, 77940098, 9504428692, 0849828486, 71836595239 #### [facility] (DEFAULT) [address] [place] [address] WBC 11.3 x10 High 3.5-10.5 [facility] Comment on above: Performed By: #### 2 397605, 68545479, 76754589, 56817080, 8481328, 27497815, 9906544833, 3304845968, 39354723947 #### [facility] (DEFAULT) [address] [place] [address] Standardon 11-08-2023 eGFR Non AA >60 Invalid Interpretation Code [facility] Comment on above: Performed By: #### 2 565115, 86670889, 94938855, 63455963, 5177291, 25757627, 9933022404, [id number], [id number] #### [facility] (DEFAULT) [address] [place] [address] eGFR AA >60 Invalid Interpretation Code [facility] Comment on above: Performed By: #### 2 714928, 65184120, 95166623, 15264921, 2788668, 41207686, 4752116888, 8785630554, [id number] #### [facility] (DEFAULT) [address] [place], [place] [id number] Albumin [Mass/Vol] 4.1 g/dL Normal 3.5-5.0 [facility] Comment on above: Performed By: #### 2 342061, 00215499, 54336511, 16451403, 6159163, 88710503, 3145669362, 9275414138, [id number] #### [facility] (DEFAULT) [address] [place], [place] [id number] Albumin/Globulin [Mass ratio] 1.0 {ratio} Low 1.4-2.6 [facility] Comment on above: Performed By: #### 2 097969, 28362922, 14870475, 57629492, 5917614, 18021648, 1416026292, 9706232108, [id number] #### [facility] (DEFAULT) [address] [place] [address] Alk Phos 87 IU/L Normal 32-91 [facility] Comment on above: Performed By: #### 2 817703, 25962099, 32626620, 66270219, 2667651, 14939430, 0047322214, 7876637965, 76408610697 #### [facility] (DEFAULT) [address] [place] [address] ALT [Catalytic activity/Vol] 16.0 U/L Low 17.0-63.0 [facility] Comment on above: Performed By: #### 2 558944, 96232475, 17431964, 63851404, 1340298, 72604925, 6828361008, 5827620964, [id number] #### [facility] (DEFAULT) [address] [place] [address] Anion gap [Moles/Vol] 9.7 mmol/L Normal 5.0-19.0 [facility] Comment on above: Performed By: #### 2 028771, 18224718, 03123901, 78325487, 4829599, 65606214, 3591879894, 6610045632, [id number] #### [facility] (DEFAULT) [address] [place] [address] AST [Catalytic activity/Vol] 30 U/L Normal 15-41 [facility] Comment on above: Performed By: #### 2 143251, 52979396, 66497568, 39194921, 2889500, 19529278, 4233400862, 0524750647, 49982129267 #### [facility] (DEFAULT) [address] [place] [address] Bili Total 0.3 mg/dL Normal 0.3-1.2 [facility] Comment on above: Performed By: #### 2 871091, 48825899, 55978538, 41156490, 7833314, 78694631, 2444251271, 3794714024, [id number] #### [facility] (DEFAULT) [address] [place] [address] Calcium [Mass/Vol] 9.0 mg/dL Normal 8.9-10.3 [facility] Comment on above: Performed By: #### 2 700076, 42249844, 78982402, 34251280, 8537646, 30808072, 7210216530, 0309241896, [id number] #### [facility] (DEFAULT) [address] [place] [address] Chloride [Moles/Vol] 104 mmol/L Normal 101-111 [facility] Comment on above: Performed By: #### 2 372655, 04552738, 84890956, 20735091, 2002912, 69839533, 0239066809, 1729426137, 29654035476 #### [facility] (DEFAULT) [address] [place] [address] CO2 [Moles/Vol] 26 mmol/L Normal 21-32 [facility] Comment on above: Performed By: #### 2 735568, 64929875, 04554928, 71345346, 5154687, 01314743, 4696851904, 0676769008, [id number] #### [facility] (DEFAULT) [address] [place] [address] Creatinine [Mass/Vol] 1.01 mg/dL Normal 0.90-1.30 [facility] Comment on above: Performed By: #### 2 664009, 75072853, 63290269, 29452500, 7123566, 63377748, 6957629625, 7326845181, [id number] #### [facility] (DEFAULT) [address] [place] [address] Globulin (S) [Mass/Vol] 4.0 g/dL Normal 1.5-4.3 [facility] Comment on above: Performed By: #### 2 626570, 36874353, 35584623, 17274862, 6269577, 66863278, 0050230513, 3609049956, 53037671237 #### [facility] (DEFAULT) [address] [place] [address] Glucose [Mass/Vol] 84.0 mg/dL Normal 74.0-118.0 [facility] Comment on above: Performed By: #### 2 218391, 04775344, 27035563, 19240355, 0994795, 90095640, 8601166199, 4623709678, 55459085772 #### [facility] (DEFAULT) [address] [place] [address] Osmolality 271 mOsm/L Invalid Interpretation Code [facility] Comment on above: Performed By: #### 2 343094, 82305592, 26943616, 28376751, 0719769, 34381032, 0823805997, 6703339380, 81114167982 #### [facility] (DEFAULT) [address] [place] [address] Potassium [Moles/Vol] 3.7 mmol/L Normal 3.6-5.1 [facility] Comment on above: Performed By: #### 2 991978, 43114722, 39639627, 16740314, 5883007, 25577002, 0555440314, 6735687126, 78249735865 #### [facility] (DEFAULT) [address] [place] [address] Protein [Mass/Vol] 8.1 g/dL Normal 6.5-8.1 [facility] Comment on above: Performed By: #### 2 729017, 84645291, 10280335, 88220939, 3436636, 58013441, 9080264614, 3862021081, 96859303433 #### [facility] (DEFAULT) [address] [place] [address] Sodium [Moles/Vol] 136.0 mmol/L Normal 136.0-144.0 [facility] Comment on above: Performed By: #### 2 445139, 11283369, 84038252, 29906360, 8066002, 23875402, 4521678119, 2090273622, [id number] #### [facility] (DEFAULT) [address] [place] [address] Urea nitrogen [Mass/Vol] 13 mg/dL Normal 8-26 [facility] Comment on above: Performed By: #### 2 909037, 29224525, 21658760, 63520248, 4969869, 53455740, 6284827744, 4686384332, 24041243264 #### [facility] (DEFAULT) [address] [place] [address] Urea nitrogen/Creatinine [Mass ratio] 12.8 mg/mg Normal 4.6-16.2 [facility] Comment on above: Performed By: #### 2 281143, 99615317, 52560264, 94227666, 8823026, 10785310, 5383803828, 4720110240, 37160629437 #### [facility] (DEFAULT) [address] [place] [address] 39589 Extra SSTon 11-08-2023 Tube Collected Yes Invalid Interpretation Code [facility] Comment on above: Performed By: #### 2 755170, 86120087, 72881056, 19402599, 8595525, 82481819, 5618697145, 2252231312, [id number] #### [facility] (DEFAULT) [address] [place] [address] Provider Orderson 11-08-2023 Provider Orders [id number] Normal [facility] Vit D25 OHon 11-08-2023 Vitamin D 25 OH 34 ng/mL Normal 30-100 [facility] Comment on above: Performed By: #### 2 478978, 92862571, 68333778, 72181904, 7296966, 72865831, 8955043328, 1958072865, [id number] #### [facility] (DEFAULT) [address] [place] [address] BMPon 03-08-2022 Anion gap [Moles/Vol] 11 mmol/L 9 - 17 mmol/L [facility] Calcium [Mass/Vol] 9.3 mg/dL 8.6 - 10. 4 mg/dL [facility] Chloride [Moles/Vol] 102 mmol/L 98 - 107 mmol/L [facility] CO2 [Moles/Vol] 28 mmol/L 20 - 31 mmol/L [facility] Creatinine [Mass/Vol] 0.9 mg/dL 0.7 - 1.2 mg/dL [facility] GFR/1.73 sq M.predicted MDRD (S/P/Bld) [Vol rate/Area] - PINF [facility] Comment on above: Effective Feb 28, 2022 [...] 104 mg/dL High 70 - 99 mg/dL [facility] Interpretation and review of laboratory results Abnormal [facility] Potassium [Moles/Vol] 4.0 mmol/L 3.7 - 5.3 mmol/L [facility] Sodium [Moles/Vol] 141 mmol/L 135 - 144 mmol/L [facility] Urea nitrogen (BldV) [Mass/Vol] 12 mg/dL 6 - 20 mg/dL [facility] Basic Metabolic Profon 03-08 Anion gap [Moles/Vol] 11 mmol/L Normal 9-17 [facility] Comment on above: Performed By: #### B MARCI, CDP #### [facility] [address] [facility] [place], [place] [address] Patroller: Deng Kerr DO Calcium [Mass/Vol] 9.3 mg/dL Normal 8.6-10.4 [facility] Comment on above: Performed By: #### B MARCI, CDP #### [facility] [address] [facility] [place], [place] [id number] Patroller: Deng Kerr DO Chloride [Moles/Vol] 102 mmol/L Normal 98-107 [facility] Comment on above: Performed By: #### B MARCI, CDP #### [facility] [address] [facility] [place] [address] Patroller: Deng Kerr DO CO2 [Moles/Vol] 28 mmol/L Normal 20-31 [facility] Comment on above: Performed By: #### B MARCI, CDP #### [facility] [address] [facility] [place] [address] Patroller: Deng Kerr DO Creatinine [Mass/Vol] 0.90 mg/dL Normal 0.70-1.20 [facility] Comment on above: Performed By: #### B MARCI, CDP #### [facility] [address] [facility] [place] [address] Patroller: Deng Kerr DO GFR/1.73 sq M.predicted among non-blacks MDRD (S/P/Bld) [Vol rate/Area] mL/min/{1.73_m2} Normal >60 [facility] Comment on above: Result Comment: Effective [...] Performed By: #### B MARCI, CDP #### [facility] [address] [facility] [place] [address] Patroller: Deng Kerr DO Glucose [Mass/Vol] 104 mg/dL High 70-99 [facility] Comment on above: Performed By: #### B MARCI, CDP #### [facility] [address] [facility] [place] [address] Patroller: Deng Kerr DO Potassium [Moles/Vol] 4.0 mmol/L Normal 3.7-5.3 [facility] Comment on above: Performed By: #### B MARCI, CDP #### [facility] [address] [facility] [place] [address] Patroller: Deng Kerr DO Sodium [Moles/Vol] 141 mmol/L Normal 135-144 [facility] Comment on above: Performed By: #### B MARCI, CDP #### [facility] [address] [facility] [place] [address] Patroller: Deng Kerr DO Urea nitrogen [Mass/Vol] 12 mg/dL Normal 6-20 [facility] Comment on above: Performed By: #### B MARCI, CDP #### [facility] [address] [facility] [place] [address] Patroller: Deng Kerr DO CBC with Auto Differentialon 03-08-2022 Absolute Eos # 0.10 [facility] Absolute Lymph # 1.80 [facility] Absolute [place] # 0.70 [facility] Basophils (Bld) [#/Vol] 0.10 10*3/uL [facility] Basophils/100 WBC (Bld) 1 % 0 - 2 % [facility] Eosinophils/100 WBC (Bld) 1 % 0 - 4 % [facility] Hematocrit (Bld) [Volume fraction] 43.2 % 41 - 53 % [facility] Hemoglobin (Bld) [Mass/Vol] 14.2 g/dL 13.5 - 17.5 g/dL [facility] Interpretation and review of laboratory results Abnormal [facility] Lymphocytes/100 WBC (Bld) 16 % Low 24 - 44 % [facility] MCH (RBC) [Entitic mass] 29.8 pg 26 - 34 pg [facility] MCHC (RBC) [Mass/Vol] 32.9 g/dL 31 - 37 g/dL [facility] MCV (RBC) [Entitic vol] 90.3 fL 80 - 100 fL [facility] Monocytes/100 WBC (Bld) 6 % 1 - 7 % [facility] Platelet distribution width (Bld) [Ratio] 14.0 % 11.5 - 14.9 % [facility] Platelet mean volume (Bld) [Entitic vol] 7.6 fL 6 - 12 fL [facility] Platelets (Bld) [#/Vol] 314 10*3/uL [facility] RBC (Bld) [#/Vol] 4.78 10*6/uL 4.5 - 5.9 m/uL [facility] Segmented neutrophils/100 WBC (Bld) 76 % High 36 - 66 % [facility] Segs Absolute 8.70 [facility] WBC (Bld) [#/Vol] 11.4 10*3/uL High [facility] CBC with Diffon 03-08-2022 Abs. Basophil 0.10 k/uL Normal 0.0-0.2 [facility] Comment on above: Performed By: #### B MARCI, CDP #### [facility] [place] [address] Patroller: Deng Kerr DO Abs.Neutrophil (Seg) 8.70 k/uL Normal 1.3-9.1 [facility] Comment on above: Performed By: #### B MARCI, CDP #### [facility] [place], [place] [id number] Patroller: Deng Kerr DO Basophils/100 WBC (Bld) 1 % Normal 0-2 [facility] Comment on above: Performed By: #### B MARCI, CDP #### [facility] [place], [place] [id number] Patroller: Deng Kerr DO Eosinophils (Bld) [#/Vol] 0.10 10*3/uL Normal 0.0-0.4 [facility] Comment on above: Performed By: #### Isaac COVARRUBIAS, CDP #### [facility] [address] [place] [address] Patroller: Deng Kerr DO Eosinophils/100 WBC (Bld) 1 % Normal 0-4 [facility] Comment on above: Performed By: #### B MARCI, CDP #### [facility] [place] [address] Patroller: Deng Kerr DO Erythrocyte distribution width (RBC) [Ratio] 14.0 % Normal 11.5-14.9 [facility] Comment on above: Performed By: #### B MARCI, CDP #### [facility] [place] [address] Patroller: Deng Kerr DO Hematocrit (Bld) [Volume fraction] 43.2 % Normal 41-53 [facility] Comment on above: Performed By: #### Isaac COVARRUBIAS, CDP #### [facility] [place] [address] Patroller: Deng Kerr DO Hemoglobin (Bld) [Mass/Vol] 14.2 g/dL Normal 13.5-17.5 [facility] Comment on above: Performed By: #### Isaac COVARRUBIAS, CDP #### [facility] [address] [place] [address] Patroller: Deng Kerr DO Lymphocytes (Bld) [#/Vol] 1.80 10*3/uL Normal 1.0-4.8 [facility] Comment on above: Performed By: #### B MARCI, CDP #### [facility] [place] [address] Patroller: Deng Kerr DO Lymphocytes/100 WBC (Bld) 16 % Low 24-44 [facility] Comment on above: Performed By: #### B MARCI, CDP #### [facility] [address] [place] [address] Patroller: Deng Kerr DO MCH (RBC) [Entitic mass] 29.8 pg Normal 26-34 [facility] Comment on above: Performed By: #### B MARCI, CDP #### [facility] [place] [address] Patroller: Deng Kerr DO MCHC (RBC) [Mass/Vol] 32.9 g/dL Normal 31-37 [facility] Comment on above: Performed By: #### B MARCI, CDP #### [facility] [place] [address] Patroller: Deng Kerr DO MCV (RBC) [Entitic vol] 90.3 fL Normal 80-100 [facility] Comment on above: Performed By: #### B MARCI, CDP #### [facility] [place] [address] Patroller: Deng Kerr DO Monocytes (Bld) [#/Vol] 0.70 10*3/uL Normal 0.1-1.3 [facility] Comment on above: Performed By: #### Isaac COVARRUBIAS, CDP #### [facility] [place] [address] Patroller: Deng Kerr DO Monocytes/100 WBC (Bld) 6 % Normal 1-7 [facility] Comment on above: Performed By: #### B MARCI, CDP #### [facility] [address] [place] [address] Patroller: Deng Kerr DO Neutrophil (Seg) 76 % High 36-66 [facility] Comment on above: Performed By: #### B MARCI, CDP #### [facility] [address] [place] [address] Patroller: Deng Kerr DO Platelet mean volume (Bld) [Entitic vol] 7.6 fL Normal 6.0-12.0 [facility] Comment on above: Performed By: #### Isaac COVARRUBIAS, CDP #### [facility] [address] [facility] [place] [address] Patroller: Deng Kerr DO Platelets (Bld) [#/Vol] 314 10*3/uL Normal 150-450 [facility] Comment on above: Performed By: #### Isaac COVARRUBIAS, CDP #### [facility] [address] [facility] [place] [address] Patroller: Deng Kerr DO RBC (Bld) [#/Vol] 4.78 10*6/uL Normal 4.5-5.9 [facility] Comment on above: Performed By: #### Isaac COVARRUBIAS, CDP #### [facility] [address] [facility] [place] [address] Patroller: Deng Kerr DO WBC (Bld) [#/Vol] 11.4 10*3/uL High 3.5-11.0 [facility] Comment on above: Performed By: #### Isaac COVARRUBIAS, CDP #### [facility] [address] [facility] [place] [address] Patroller: Degn Kerr DO POC Glucose Fingerstickon Glucose [Mass/Vol] 169 mg/dL High 75 - 110 mg/dL [facility] Interpretation and review of laboratory results Abnormal [facility] Glucose [Mass/Vol] 162 mg/dL High 75 - 110 mg/dL [facility] Interpretation and review of laboratory results Abnormal [facility] POC Glucose Fingerstickon Glucose [Mass/Vol] 181 mg/dL High 75 - 110 mg/dL [facility] Interpretation and review of laboratory results Abnormal [facility] Glucose [Mass/Vol] 180 mg/dL High 75 - 110 mg/dL [facility] Interpretation and review of laboratory results Abnormal [facility] Glucose [Mass/Vol] 202 mg/dL High 75 - 110 mg/dL [facility] Interpretation and review of laboratory results Abnormal [facility] Glucose [Mass/Vol] 146 mg/dL High 75 - 110 mg/dL [facility] Interpretation and review of laboratory results Abnormal [facility] Glucose [Mass/Vol] 158 mg/dL High 75 - 110 mg/dL [facility] Interpretation and review of laboratory results Abnormal [facility] MRI BRAIN W WO CONTRASTon 1. No [...] enhancement is seen to suggest active demyelination. [facility] RIS CONSOLIDATED EXAMINATION: MRI OF THE [...] The soft tissues demonstrate no acute abnormality. [facility] Kush Obando MD - 02/14/2022 EXAMINATION: MRI [...] enhancement is seen to suggest active demyelination. [employer] Work Phone: MRI BRAIN W WO CONTRASTOrder ed By: Kush Giordano on 02-14-2022 [employer] Work Phone: MRI CERVICAL SPINE W WO CONT RASTon 02-14-2022 1. There is suggestion of T2 hyperintensity within the left dorsal aspect of the cord at the lower C2 level without associated enhancement. 2. No additional area of abnormal cord signal. 3. Straightening of the normal cervical lordosis without spondylolisthesis. 4. No significant spinal canal stenosis or neural foraminal narrowing. [facility] RIS CONSOLIDATED EXAMINATION: MRI OF THE [...] spinal canal stenosis or neural foraminal narrowing. [facility] Kush Agrawal MD - 02/14/2022 EXAMINATION: MRI OF THE [...] spinal canal stenosis or neural foraminal narrowing. [facility] [employer] Work Phone: [facility] [employer] Work Phone: MRI LUMBAR SPINE WO CONTRAST on 02-14-2022 No significant spina l canal or neural foraminal stenosis in the lumbar spine. No abnormal cord signal. Annular fissure at L5-S1 disc. RECOMMENDATIONS: Unavailable [facility] CONSOLIDATED EXAMINATION: MRI OF THE LUMBAR SPINE [...] spinal canal stenosis or neural foraminal narrowing. [facility] CONSOLIDATED Shivam Salter MD - 02/14/2022 EXAMINATION: [...] Annular fissure at L5-S1 disc. RECOMMENDATIONS: Unavailable [employer] Phone: Radiology Study observation (narrative) [employer] Phone: MRI LUMBAR SPINE WO CONTRAST Ordered By: Shivam Salter on 02-14-2022 [employer] Phone: MRI THORACIC SPINE W WO CONT RASTon 02-14-2022 1. T2 hyperintensity within the dorsal aspect of the cord at T11-T12 with associated enhancement. This is compatible with patient's history of multiple sclerosis with active demyelination. 2. No significant spinal canal stenosis or neural foraminal narrowing of the thoracic spine. [facility] RIS CONSOLIDATED EXAMINATION: MRI OF THE THORACIC SPINE [...] neural foraminal narrowing of the thoracic spine. [facility] R[facility] CONSOL[facility] Kush Giordano MD - 02/14/2022 EXAMINATION: [...] neural foraminal narrowing of the thoracic spine. [employer] Work Phone: [employer] Work Phone: No Panel Informationon 02-14 Radiology Study observation (narrative) [employer] Work Phone: POC Glucose Fingerstickon Glucose [Mass/Vol] 156 mg/dL High 75 - 110 mg/dL [facility] Interpretation and review of laboratory results Abnormal [facility] Glucose [Mass/Vol] 194 mg/dL High 75 - 110 mg/dL [facility] Interpretation and review of laboratory results Abnormal [facility] Glucose [Mass/Vol] 102 mg/dL 75 - 110 mg/dL [facility] C-Reactive Proteinon 022 CRP [Mass/Vol] 7.1 mg/L High 0 - 5 mg/L [facility] Interpretation and review of laboratory results Abnormal [facility] CBC with Auto Differentialon 02-13-2022 Absolute Eos # 0.14 [facility] Absolute Immature Granulocyte 0.04 [facility] Absolute Lymph # 1.68 [facility] Absolute [place] # 1.15 [facility] Basophils (Bld) [#/Vol] 0.05 10*3/uL [facility] Basophils/100 WBC (Bld) 0 % 0 - 2 % [facility] Eosinophils/100 WBC (Bld) 1 % 1 - 4 % [facility] Hematocrit (Bld) [Volume fraction] 45.6 % 40.7 - 50.3 % [facility] Hemoglobin (Bld) [Mass/Vol] 14.6 g/dL 13 - 17 g/dL [facility] Immature granulocytes/100 WBC (Bld) 0 % 0 [facility] Interpretation and review of laboratory results Abnormal [facility] Lymphocytes/100 WBC (Bld) 12 % Low 24 - 43 % [facility] MCH (RBC) [Entitic mass] 29.2 pg 25.2 - 33.5 pg [facility] MCHC (RBC) [Mass/Vol] 32.0 g/dL 28.4 - 34.8 g/dL [facility] MCV (RBC) [Entitic vol] 91.2 fL 82.6 - 102.9 fL [facility] Monocytes/100 WBC (Bld) 8 % 3 - 12 % [facility] NRBC Automated 0.0 0.0 per 100 WBC [facility] Platelet distribution width (Bld) [Ratio] 12.9 % 11.8 - 14.4 % [facility] Platelet mean volume (Bld) [Entitic vol] 10.3 fL 8.1 - 13.5 fL [facility] Platelets (Bld) [#/Vol] 340 10*3/uL [facility] RBC (Bld) [#/Vol] 5.00 10*6/uL 4.21 - 5.7 7 m/uL [facility] Segmented neutrophils/100 WBC (Bld) 79 % High 36 - 65 % [facility] Segs Absolute 10.56 High [facility] WBC (Bld) [#/Vol] 13.6 10*3/uL High [facility] CMPon 02-13-2022 Albumin [Mass/Vol] 4 g/dL 3.5 - 5.2 g/dL [facility] Albumin/Globulin [Mass ratio] 1.1 {ratio} 1 - 2.5 [facility] ALP (Bld) [Catalytic activity/Vol] 101 U/L 40 - 129 U/L [facility] ALT [Catalytic activity/Vol] 18 U/L 5 - 41 U/L [facility] Anion gap [Moles/Vol] 12 mmol/L 9 - 17 mmol/L [facility] AST [Catalytic activity/Vol] 18 U/L NINF - 40 U/L [facility] Bilirubin [Mass/Vol] mg/dL Low 0.3 - 1.2 mg/dL [facility] Calcium [Mass/Vol] 9.6 mg/dL 8.6 - 10. 4 mg/dL [facility] Chloride [Moles/Vol] 101 mmol/L 98 - 107 mmol/L [facility] CO2 [Moles/Vol] 24 mmol/L 20 - 31 mmol/L [facility] Creatinine [Mass/Vol] 1.1 mg/dL 0.7 - 1.2 mg/dL [facility] Free PSA/Total PSA [Mass fraction] 7.8 g/dL 6.4 - 8.3 g/dL [facility] GFR >60 60 - PINF mL/min [facility] GFR Non- >60 60 - PINF mL/min [facility] GFR/1.73 sq M.predicted MDRD (S/P/Bld) [Vol rate/Area] [facility] Comment on above: Average GFR for 30-3 9 years old: 107 mL/min/1.73sq m Chronic Kidney Disease: <60 mL/min/1.73sq m Kidney failure: <15 mL/min/1.73sq m eGFR calculated using average adult body mass. Additional eGFR calculator available at: http://www.Hipui/multiple_crcl_2012.htm Glucose [Mass/Vol] 115 mg/dL High 70 - 99 mg/dL [facility] Interpretation and review of laboratory results Abnormal [facility] [employer] Potassium [Moles/Vol] 4.0 mmol/L 3.7 - 5.3 mmol/L [facility]ITALCant[facility] Sodium [Moles/Vol] 137 mmol/L 135 - 144 mmol/L [facility] Urea nitrogen (BldV) [Mass/Vol] 18 mg/dL 6 - 20 mg/dL [facility]ITALCantex Pharmaceuticals [facility] SYSTEM[facility]unte[facility]ITALVirtual [facility] [employer] Sedimentation Rateon 02-13-2 022 Interpretation and review of laboratory results Abnormal [facility]PITALVirtual Air [employer] Company Sed Rate 19 High [facility]PITALThe Currency Cloud [facility]ITALThe [facility] Cloud [facility] Vital Signs Date Time Vital Sign Value Performing Clinician Facility 06-26-2024 11:30-0500 Body height 175.3 cm Pfo 4 [facility] 06-26-2024 11:30-0500 Body mass index (BMI) [Ratio] 25.62 kg/m2 Pfo 4 [facility] 06-26-2024 11:30-0500 Body temperature 98.8 [degF] Pfo 4 [facility] 06-26-2024 11:30-0500 Body weight 78.74 kg Pfo 4 [facility] 06-26-2024 11:30-0500 Diastolic blood pressure 67 mm[Hg] Pfo 4 [facility] 06-26-2024 11:30-0500 Heart rate 100 /min Pfo 4 [facility] 06-26-2024 11:30-0500 Respiratory rate 18 /min Pfo 4 [facility] 06-26-2024 11:30-0500 SaO2% (BldA) [Mass fraction] 99 % Pfo 4 [facility] 06-26-2024 11:30-0500 Systolic blood pressure 110 mm[Hg] Pfo 4 [facility] 01-17-2024 08:20-0400 Body height 175.3 cm Pfo 2 [facility] 01-17-2024 08:20-0400 Body mass index (BMI) [Ratio] 24.07 kg/m2 Pfo 2 [facility] 01-17-2024 08:20-0400 Body temperature 97.5 [degF] Pfo 2 [facility] 01-17-2024 08:20-0400 Body weight 73.94 kg Pfo 2 [facility] 01-17-2024 08:20-0400 Diastolic blood pressure 59 mm[Hg] Pfo 2 [facility] 01-17-2024 08:20-0400 Heart rate 63 /min Pfo 2 [facility] 01-17-2024 08:20-0400 Respiratory rate 18 /min Pfo 2 [facility] 01-17-2024 08:20-0400 SaO2% (BldA) [Mass fraction] 100 % Pfo 2 [facility] 01-17-2024 08:20-0400 Systolic blood pressure 113 mm[Hg] Pfo 2 [facility] 12-28-2023 14:42-0400 Body temperature 98.2 [degF] Pfo 1 [facility] 12-28-2023 14:42-0400 Diastolic blood pressure 63 mm[Hg] Pfo 1 [facility] 12-28-2023 14:42-0400 Heart rate 74 /min Pfo 1 [facility] 12-28-2023 14:42-0400 Respiratory rate 16 /min Pfo 1 [facility] 12-28-2023 14:42-0400 SaO2% (BldA) [Mass fraction] 98 % Pfo 1 [facility] 12-28-2023 14:42-0400 Systolic blood pressure 85 mm[Hg] Pfo 1 [facility] 12-28-2023 09:25-0400 Body mass index (BMI) [Ratio] 24.82 kg/m2 Pfo 1 [facility] 12-28-2023 09:25-0400 Body weight 74.03 kg Pfo 1 [facility] 11-21-2023 11:00-0400 Body mass index (BMI) [Ratio] 26.16 kg/m2 Josr Corona [facility] 11-21-2023 11:00-0400 Body weight 78.02 kg Josr Corona [facility] 03-08-2022 17:51-0400 Diastolic blood pressure 64 mm[Hg] Nick Gentile MD [facility] 03-08-2022 17:51-0400 Heart rate 60 /min Nick Gentile MD [facility] 03-08-2022 17:51-0400 Respiratory rate 16 /min Nick Gentile MD [facility] 03-08-2022 17:51-0400 SaO2% (BldA) [Mass fraction] 94 % Nick Gentile MD [facility] 03-08-2022 17:51-0400 Systolic blood pressure 100 mm[Hg] Nick Gentile MD [facility] 03-08-2022 15:30-0400 Body height 172.7 cm Nick Gentile MD [facility] 03-08-2022 15:30-0400 Body mass index (BMI) [Ratio] 24.33 kg/m2 Nick Gentile MD [facility] 03-08-2022 15:30-0400 Body temperature 97.81 [degF] Nick Gentile MD [facility] 03-08-2022 15:30-0400 Body weight 72.58 kg Nick Gentile MD [facility] 02-16-2022 15:16-0400 Body temperature 97.7 [degF] Manuel Vegas MD [facility] 02-16-2022 15:16-0400 Diastolic blood pressure 85 mm[Hg] Manuel Vegas MD [facility] 02-16-2022 15:16-0400 Heart rate 70 /min Manuel Vegas MD [facility] 02-16-2022 15:16-0400 Respiratory rate 18 /min Manuel Vegas MD [facility] 02-16-2022 15:16-0400 Systolic blood pressure 125 mm[Hg] Manuel Vegas MD [facility] 02-16-2022 09:37-0400 SaO2% (BldA) [Mass fraction] 96 % Manuel MELARA [facility] Encounters Encounter Date Encounter Type Care Provider Facility Start: 09-05-2024 ambulatory Rogelio domínguez [facility] Start: 08-20-2024 End: 08-20-2024 ambulatory Helga Cruz Facility:[facility] Start: 06-26-2024 End: 06-26-2024 ambulatory Pfo Infusion Chair 4 Sue Gurrola [facility] - Medical Oncology Comment on above: Multiple sclerosis e xacerbation ([facility]-HCC) (Primary Dx) Start: 06-20-2024 End: 06-22-2024 ambulatory HELGA Dustin CRUZ [facility] Start: 06-20-2024 End: 06-22-2024 Subsequent hospital visit by physician Ceferino Eason DO Work Phone: [facility] Comment on above: Relapsing remitting multiple sclerosis (HCC) Start: 06-04-2024 End: 06-04-2024 Documentation procedure Lorena Gurrola [facility] - Medical Oncology Start: 05-16-2024 End: 05-16-2024 ambulatory Helga M Blunt Facility:[facility] Start: 04-16-2024 End: 04-16-2024 ambulatory Helga Dustin Blunt Facility:[facility] Start: 03-26-2024 End: 03-26-2024 ambulatory HELGA Dustin CRUZ [facility] Start: 01-17-2024 End: 01-17-2024 ambulatory UNKNOWN PHYSICIAN [facility] Comment on above: Multiple sclerosis e xacerbation ([facility]-HCC) (Primary Dx) Start: 01-11-2024 End: 01-28-2024 ambulatory UNKNOWN PHYSICIAN [facility] Start: 12-28-2023 End: 12-28-2023 ambulatory UNKNOWN PHYSICIAN [facility] Comment on above: Multiple sclerosis e xacerbation ([facility]-H[facility]) (Primary Dx) Start: 11-27-2023 End: 11-27-2023 Orders Only Padmaja Oglesby [facility] Work Phone: Sue Gurrola [facility] - Medical Oncology Start: 11-23-2023 End: 11-27-2023 ambulatory CARLOS ALBERTO GONZALEZ [facility] Start: 11-21-2023 End: 11-23-2023 ambulatory Josr Corona [facility] Sue hartman [facility] - Medical Oncology Comment on above: Multiple sclerosis e xacerbation (CMS-HCC) (Primary Dx) Start: 11-08-2023 End: 11-08-2023 ambulatory Helga Cruz Facility:[facility] Start: 01-10-2023 End: 01-10-2023 Subsequent hospital visit by physician Lew Flores Rm 1 [facility] PRE-ADMIT TESTING Comment on above: No Show Start: 03-08-2022 End: 03-08-2022 Emergency department patient visit TIMBO GILBERT [facility] Start: 03-08-2022 End: 03-08-2022 Emergency department patient visit Nick Gentile MD [facility] Comment on above: Relapsing remitting multiple sclerosis (HCC) (Primary Dx) Start: 02-19-2022 End: 02-19-2022 Subsequent hospital visit by physician Lisa Olivas MD Work Phone: [facility] Observation Comment on above: History of multiple sclerosis (HCC) (Primary Dx); Relapsing remitting multiple sclerosis (HCC) Start: 02-13-2022 End: 02-16-2022 Evaluation and management of inpatient Manuel Vegas MD [facility] Stepdown Comment on above: Lower extremity numb ness (Primary Dx); History of multiple sclerosis (HCC); Relapsing remitting multiple sclerosis (HCC) Procedures Date Procedure Procedure Detail Performing Clinician Start: 06-20-2024 Mri brain brain stem w/o w/contrast material Ceferino Bite DO Work Phone: Start: 03-08-2022 Basic metabolic pane l calcium total Prashant Barraza DO Work Phone: Start: 02-16-2022 Glucose blood reagen t strip Hector Ag MD Work Phone: Start: 02-16-2022 Glucose blood reagen t strip Hector Ag MD Work Phone: Start: 02-15-2022 Glucose blood reagen t strip Hector Ag MD Work Phone: Start: 02-15-2022 End: 02-15-2022 Glucose blood reagent strip Hector Ag MD Work Phone: Start: [...] Td Vaccines (2 - Td or Tdap) [facility] Start: 01-16-2025 Adult BMI Screening Adult BMI Screen ing [facility] Start: 01-16-2025 Tobacco Screening Tobacco Screening [facility] Start: 12-27-2024 Adult BMI Screening Adult BMI Screen ing [facility] Start: 12-27-2024 Tobacco Screening Tobacco Screening [facility] Start: 11-20-2024 Adult BMI Screening Adult BMI Screen ing [facility] Start: 06-19-2024 End: 06-19-2024 ambulatory 06/19/2024 8:30 AM EST Infusion Sue Gurrola [facility] - Medical Oncology [address] [place] [address] Sue Junior [facility] - Medical Oncology Start: 01-28-2024 Influenza vaccination Influenza Vacc ine [facility] Start: 01-11-2024 End: 01-11-2024 ambulatory 01/11/2024 8:00 AM EDT Infusion Sue Gurrola [facility] [address] [place] [address] Sue L [facility] Start: 12-28-2023 Influenza vaccination Flu vaccine (# 1) [facility] Start: 11-29-2023 Diabetes screen Diabetes screen [facility] Start: 01-24-2023 End: 01-24-2023 Admission to same day surgery center 01/24/2023 Surgery IP Unit Parrish Lora MD [address] [place] [address] EUA WITH PILONIDAL CYSTECTOMY [facility] OR Comment on above: EUA WITH PILONIDAL C YSTECTOMY Start: 01-24-2023 End: 01-24-2023 Excision pilonidal cyst/sinus complicated PILONIDAL CYSTECTOMY Pilonidal cyst Anal fistula 01/24/2023 1:00 PM EDT [facility] Start: 01-24-2023 Subsequent hospital visit by physician 01/24/2023 Hospital Encounter IP Unit Parrish Lora MD [address] [place] [address] [facility] Start: 01-16-2023 End: 01-16-2023 Patient encounter procedure 01/16/2023 Office Visit Neurology Jose Gallo MD [address] [facility] [address] [place] [address] [facility] Start: 12-27-2022 Influenza vaccination Flu vaccine (# 1) [facility] Start: 03-29-2022 End: 03-29-2022 Patient encounter procedure 03/29/2022 Office Visit Neurosurgery Marlena Steele W, [employer] - [employer]DE WRANGLER [address] [facility] [address] [facility] [address] [place] [address] [facility] Start: 03-17-2022 End: 02-16-2023 MRI CERVICAL SPINE W WO CONTRAST MRI CERVICAL SPINE W WO CONTRAST Imaging Routine Lower extremity numbness History of multiple sclerosis (HCC) Expected: 03/17/2022, Expires: 02/16/2023 [employer] [facility] Work Phone: Comment on above: Expected: 03/17/2022 , Expires: 02/16/2023 Start: 03-17-2022 End: 02-16-2023 MRI THORACIC SPINE W WO CONTRAST MRI THORACIC SPINE W WO CONTRAST Imaging Routine Lower extremity numbness History of multiple sclerosis (HCC) Expected: 03/17/2022, Expires: 02/16/2023 [employer] [facility] Work Phone: Comment on above: Expected: 03/17/2022 , Expires: 02/16/2023 Start: 02-18-2022 End: 02-18-2022 Patient encounter procedure 02/18/2022 Appointment Oncology [facility] Observation Start: 02-17-2022 End: 02-17-2022 Patient encounter procedure 02/17/2022 Appointment Oncology [facility] Observation Start: 01-27-2022 Influenza vaccination Flu vaccine (# 1) [facility] Start: 12-27-2021 Influenza vaccination Flu vaccine (# 1) [facility] Start: 07-28-2021 Depression Screen Depression Screen [facility] Start: 08-19-2015 DTaP/Tdap/Td vaccine (1 - Tdap) DTaP/Tdap/Td vaccine (1 - Tdap) [facility] Start: 11-29-2007 DTaP,Tdap and Td Vaccines (1 - Tdap) DTaP,Tdap and Td Vaccines (1 - Tdap) [facility] Start: 11-29-2007 Hepatitis B vaccine (1 of 3 - 19+ 3-dose series) Hepatitis B vaccine (1 of 3 - 19+ 3-dose series) [facility] Start: 11-29-2007 Shingles vaccine (1 of 2) Shingles vaccine (1 of 2) [facility] Start: 2006 Hepatitis C screening Hepatitis C sc reen [facility] Start: 2000 Depression Screen Depression Screen [facility] Start: 2000 Depression Screening Depression Scre ening [facility] Start: 2000 Tobacco Screening Tobacco Screening [facility] Start: 1994 Pneumococcal 0-64 ye ars Vaccine (1 of 2 - PCV) Pneumococcal 0-64 years Vaccine (1 of 2 - PCV) [facility] Start: 1993 COVID-19 Vaccine (#1) COVID-19 Vacci ne (#1) [facility] Start: 05-31-1989 COVID-19 Vaccine (#1) COVID-19 Vacci ne (#1) [facility] Start: 1988 Hepatitis B vaccine (1 of 3 - 3-dose series) Hepatitis B vaccine (1 of 3 - 3-dose series) [facility] End: 02-15-2022 Basic Metabolic Panel w/ Reflex to MG Basic Metabolic Panel w/ Reflex to MG Lab Routine Tomorrow AM for 1 Occurrences starting 02/15/2022 until 02/15/2022 [employer] [facility] [employer] [facility] Work Phone: Comment on above: Tomorrow AM for 1 Oc currences starting 02/15/2022 until 02/15/2022 End: 02-15-2022 CBC W Auto Differential panel - Blood CBC with Auto Differential Lab Routine Tomorrow AM for 1 Occurrences starting 02/15/2022 until 02/15/2022 [facility] Phone: Comment on above: Tomorrow AM for 1 Oc currences starting 02/15/2022 until 02/15/2022 Glucose [Mass/volume ] in Serum or Plasma POCT Glucose Point of Care Testing STAT As Needed until discontinued starting 02/14/2022 [employer] Work Phone: Comment on above: As Needed until disc ontinued starting 02/14/2022 End: 01-18-2024 Oxygen Therapy - Maintain SpO2: 90% or greater; *SALES PROJECT MANAGER Guidelines for O2: Yes; Document: file://to [email or web address] rg/epic/EPIC_Reference/ Orders/Respiratory%20Ca re%20Guidelines/CPG%20O xygen%[email or web address].pdf Oxygen Therapy - Maintain SpO2: 90% or greater; *SALES PROJECT MANAGER Guidelines for O2: Yes; Document: file://PubNative.Simbiosis. org/epic/EPIC_Referenc e/Orders/Respiratory%2 0Care%20Guidelines/CPG %20Oxygen%315201.pdf Respiratory Care STAT Multiple sclerosis exacerbation ([facility]-H[facility]) As Needed for 1 Occurrences starting 01/17/2024 until 01/18/2024 [employer] Work Phone: Comment on above: As Needed for 1 Occu rrences starting 01/17/2024 until 01/18/2024 Oxygen therapy [[facility] Data Set] Initiate Oxygen Therapy Protocol Respiratory Care Routine As Needed until discontinued starting 02/14/2022 [place] Work Phone: Comment on above: As Needed until disc ontinued starting 02/14/2022 Immunizations Immunization Date Immunization Notes Care Provider Mary jean 08-18-2015 Td, unspecified formulation Manuel Vegas MD [facility] Payers Date Payer Category Payer Medicaid [facility] MEDICA[facility] PLAN [id number] 2022-Present [phone] [address] [place] [address] [id number] 2022 Medicaid HMO [facility] MEDICAID [id number] 2022 Private Health Insurance [id number] 2015 Private Health Insurance [id number] 2015 Private Health Insurance [id number] 1988 Unknown [id number] [id number]. 2.176 1988 Unknown [id number] 2.16.840.1.075864.3.579. 2.177 1988 Unknown [id number] 2.16.840.1.868195.3.579. 2.175 1988 Unknown [id number] 2.16.840.1.447904.3.579. 2.1286 1988 Unknown [id number] 2.16.840.1.426949.3.579. 2.1286 1988 Unknown [id number] 2.16.840.1.340449.3.579. 2.1286 1988 Unknown [id number] 2.16.840.1.235021.3.579. 2.1286 1988 Unknown [id number] 2.16.840.1.958742.3.579. 2.1286 1988 Unknown [id number] 2.16.840.1.017292.3.579. 2.718 1988 Unknown [id number] 2.16.840.1.116368.3.579. 2.718 1988 Unknown [id number] 2.16.840.1.038759.3.579. 2.718 1988 Unknown [id number] [id number]. 2.718 Social History Date Type Detail Facility Start: 10-08-2018 End: 02-13-2022 Tobacco smoking status CAIS Never smoked tobacco [facility] Start: 10-08-2018 End: 02-13-2022 Tobacco use and exposure Smokeless tobacco non-user [employer] Phone: Start: 02-13-2022 End: 07-18-2022 Alcohol intake Current drinker of alcohol (finding) [facility] Work Phone: Start: 03-04-2021 History SDOH Alcohol Comment social [facility] Work Phone: Start: 07-28-2020 History SDOH Financial 5 [facility] Work Phone: Start: 07-28-2020 History SDOH Food Worry 1 [facility] Work Phone: Start: 07-28-2020 History SDOH Transpo rt Med 2 [facility] Work Phone: Start: 1990 Sex Assigned At Not on file B ON [employer] Phone: Start: 02-04-2022 End: 02-15-2022 Exposure to SARS-CoV-2 (event) Not sure [facility] Start: 12-28-2023 End: 01-17-2024 Alcoholic beverage intake Lifetime non-drinker (finding) [facility] Start: 10-08-2018 End: 07-09-2020 History of Social function [employer] Start: 10-08-2018 End: 07-09-2020 Alcohol Use Disorder Identification Test - Consumption [AUDIT-C] [facility] [employer] Frequency of Alcohol Consumption Never [employer] Start: 01-01-2015 Sex Male (finding) [facility] Start: 04-11-2024 Alcoholic beverage intake Ex-d tello (finding) [employer] (I/We) worried wheth er (my/our) food would run out before (I/we) got money to buy more. Never true [employer] NEGATED: Highlighted rowStart: BONIFACIOF History of tobacco use [facility] Clinical Notes 02-16-2022 to 06-26-2024 Kiley Negron RN - 06/26/2024 11:30 AM Antonio Cerna RN - 06/04/2024 12:57 PM Antonio Cerna RN - 01/17/2024 8:00 AM Saurav Fuller RN - 12/28/2023 9:00 AM DONNATMyron Instructions Note Date & Type Note Facility [...] with official escort. documented in this encounter [facility] 06-04-2024 History of Present illness Narrative Ruthann Umaña CMA P [facility] Onc Nurses [facility] Adult Neurology called just to give the heads up that pt is currently incarcerated. His release date is not until July. They are reaching out to the nursing home to see if they can transport him here for that treatment as the Dr does not want him getting to far behind on his treatments. documented in this encounter [facility] 04-02-2024 Note [phone] [id number] 01-17-2024 History of Present illness Narrative [...] of future appointment. documented in this encounter [facility] 12-28-2023 History of Present illness Narrative The [...] in stable condition [facility] 03-08-2022 Hospital Discharge instructions Prashant Barraza DO - 03/08/2022 6:01 PM EDT Follow-up with your neurologist as soon as possible. You need to call your neurologist first thing tomorrow. Please take steroids as prescribed. If your symptoms worsen in any way return to the emergency department or call 911 documented in this encounter [facility] [facility] [employer] Phone: 02-16-2022 History of Present illness Narrative CLINICAL PHARMACY NOTE: MEDS TO BEDS Total # of Prescriptions Filled: 1 The following medications were delivered to the patient: Pantoprazole 40mg tablets Additional Documentation: medications delivered to the pt in room 136 on 02.16.22 by praful at 17:15, no co pay Physical Therapy Facility/Department: [address] [place] Daily Treatment Note Name: Juice [...] Nerve Block (approx 2007 or 2008); and Crook tooth extraction. Assessment Body Structures, Functions, Activity [...] from the original note were not included. [facility] Neurology IN-PATIENT SERVICE [facility] Resident Progress Note Date: 02/16/2022 Patient name: Juice White Date of admission: 02/13/2022 9:07 PM Account: [id number] Date of : 1990 PCP: CORONA Lafleur [...] DO 02/16/2022 3:20 PM Occupational Therapy Facility/Department: [address] Occupational Therapy Initial Assessment Name: Juice White [...] Nerve Block (approx 2007 or 2008); and Crook tooth extraction. 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 [...] assistance;Increased time to complete (seated EOB to don hospital gown) LE Dressing: Minimal assistance;Increased time [...] AM-PAC Inpatient Daily Activity Raw Score: 18 (02/15/22 1447) AM-PAC Inpatient ADL T-Scale Score : 38.66 (02/15/22 1447) ADL Inpatient CMS 0-100% Score: 46.65 (02/15/22 144) ADL Inpatient CMS G-Code Modifier : CK [...] Minutes Leighann Sherwood OTR/L Physical Therapy Facility/Department: [address] [place] Physical Therapy Initial Assessment Name: [...] past medical history of Acute respiratory failure ([facility]), Anxiety and depression, Asthma, Salazar's palsy, Cerebral artery occlusion with cerebral infarction ([facility]), Closed head injury, Closed nondisplaced fracture of seventh cervical vertebra ([facility]), Difficulty sleeping, Epilepsy ([facility]), Fracture of occipital condyle (HCC), GERD (gastroesophageal reflux disease), Headache(784.0), Hemorrhagic stroke ([facility]), Knee pain, bilateral, Memory loss, Multiple sclerosis (HCC), Neck fracture (HCC), Neck pain, Scoliosis, SDH (subdural hematoma) ([facility]), Skull fracture ([facility]), and Subarachnoid hemorrhage ([facility]). Past Surgical History: has a past surgical history that includes Wound debridement (10-26-2011); skin biopsy (12-04-2009); skin biopsy (03-13-2008); skin biopsy (03-17-2006); Nerve Block (approx 2007 or 2008); and Crook tooth extraction. 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 [facility] Neurology IN-PATIENT SERVICE [facility] Resident Progress Note Date: 02/15/2022 Patient name: Juice White Date of admission: 02/13/2022 9:07 PM Account: [id number] Date of : 1990 PCP: CORONA Lafleur CNP Room: [facility]- Code Status: Full Code Today's Examination & [...] days Continue PPI Continue GLU monitoring PT/OT Modavis Ortega MD, , 02/15/2022 11:23 AM PGY-3 Neurology Resident Associated attestation - Jay Anthony DO - 02/15/2022 5:52 PM EDT Attending [...] 5:51 PM documented in this encounter [facility] [employer] Phone: 02-16-2022 Hospital Discharge instructions Chavez Brewer RN - 02/16/2022 2:49 PM EDT /Continuity of Care Form Patient Name: Juice White : 1990 Admit date: 02/13/2022 Discharge date: 02/16/22 Code Status Order: Full Code Advance Directives: Admitting Physician: Hector Ag MD PCP: Lexus Ko APRN - DUDE WRANGLER Discharging Nurse: Calvin Mohr Hospital Unit/Room#: 0136/0136-01 Discharging Unit Phone Number: [phone] Emergency Contact: Extended Emergency Contact Information Primary Emergency Contact: Lay White Address: [address] [place] [address] Relation: Parent Secondary Emergency Contact: Maxim White Address: [address] [place] [address] Relation: Parent Past Surgical History: Past Surgical History: Procedure Laterality Date DEBRIDEMENT 10-26-2011 rt ring finger NERVE BLOCK approx 2007 or [address] 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 Online signature: PHYSICIAN SECTION Prognosis: Good Condition at [...] H&P PHYSICIAN SIGNATURE: documented in this encounter [employer] Phone: Evaluation note Diagnosis History of multiple sclerosis (HCC)- Primary Personal history of other disorders of nervous system and sense organs Lower extremity numbness Disturbance of skin sensation Relapsing remitting multiple sclerosis (HCC) Multiple sclerosis Transverse myelitis (HCC) Other causes of myelitis documented in this encounter [employer] Phone: evaluation note* Diagnosis History of multiple sclerosis (HCC)- Primary Personal history of other disorders of nervous system and sense organs Relapsing remitting multiple sclerosis (HCC) Multiple sclerosis documented in this encounter [employer] Phone: evaluation note* Diagnosis Relapsing remitting multiple sclerosis (HCC)- Primary Multiple sclerosis documented in this encounter [employer] Phone: evaluation note* Diagnosis Relapsing remitting multiple sclerosis (HCC) Multiple sclerosis documented in this encounter [employer] note* Diagnosis Multiple sclerosis exacerbation (CMS-HCC)- Primary Multiple sclerosis [facility]* Diagnosis Multiple sclerosis exacerbation (CMS-HCC)- Primary Multiple sclerosis [facility] Diagnosis Multiple sclerosis exacerbation (CMS-HCC)- Primary Multiple sclerosis [facility] Diagnosis Multiple sclerosis exacerbation (CMS-HCC)- [...] Authorized Specialty Diagnoses / Procedures Referred By Contac t Referred To Contact Diagnoses Relapsing remitting multiple sclerosis (HCC) History of multiple sclerosis (HCC) Procedures LA METHYLPREDNISOLONE INJECTION Lisa Olivas MD [address] [facility] 2, [address] [address] [facility] [address] [place] [address] Referral ID Status Reason Start Date Expiration Date V isits Requested Visits Authorized [id number] Authorized 02/16/2022 02/16/2023 99 99 [facility] [employer] Phone: Reason for Referral Specialty Diagnoses / Procedures Referred By Contac t Referred To Contact Radiology Diagnoses Lower extremity numbness History of multiple sclerosis (HCC) Procedures MRI THORACIC SPINE W WO CONTRAST Christopher Machado, [employer] - [employer] WR[employer]ER [address] [address] Referral ID Status Reason Start Date Expiration Date Visits Re quested Visits Authorized [id number] Open 03/17/2022 03/17/2023 1 1 Specialty Diagnoses / Procedures Referred By Contac t Referred To Contact Radiology Diagnoses Lower extremity numbness History of multiple sclerosis (HCC) Procedures MRI CERVICAL SPINE W WO CONTRAST Christopher Machado, [employer] - [employer] [address] [address] Referral ID Status Reason Start Date Expiration Date Visits Re quested Visits Authorized [id number] Open 03/17/2022 03/17/2023 1 1 Specialty Diagnoses / Procedures Referred By Contac t Referred To Contact Radiology Diagnoses Relapsing remitting multiple sclerosis (HCC) Procedures MRI BRAIN W WO CONTRAST Ceferino Eason DO [address] [place] [address] Referral ID Status Reason Start Date Expiration Date Visits Re quested Visits Authorized [id number] Closed 06/18/2024 04/11/2025 1 1 Advance Directives [...] Specialty Diagnoses / Procedures Referred By Stephon rea Referred To Contact Diagnoses Multiple sclerosis exacerbation (HCC) Hector Ag MD [address] [place] [address] [facility] [address] [place] [address] Referral ID Status Reason Start Date Expiration Date Visits Re quested Visits Authorized [id number] 1 1 Reason Comments Dizziness Pt has been dizzy fo r the last week, pt has hx of MS. Specialty Diagnoses / Procedures Referred By Stephon rea Referred To Contact Radiology Diagnoses Relapsing remitting multiple sclerosis (HCC) Procedures MRI BRAIN W WO CONTRAST Bite, Ceferino V, DO [facility] [place] [address] Referral ID Status Reason Start Date Expiration Date Visits Re quested Visits Authorized [id number] Closed 06/18/2024 04/11/2025 1 1 Reason Comments Outpatient Infusion [facility] Specialty Diagnoses / Procedures Referred By Stephon rea Referred To Contact Diagnoses Multiple sclerosis exacerbation (CMS-HCC) Procedures LA INJECTION, UBLITUXIMAB-XIIY, 1MG Bite, Ceferino, DO [address] [place] [address] Phone: tel: fax: Sue Junior [facility] - Medical Oncology [address] [place] [phone] Phone: tel: fax: Referral ID Status Reason Start Date Expiration Date V isits Requested Visits Authorized [id number] Authorized 11/21/2023 12/18/2024 1 1 Specialty Diagnoses / Procedures Referred By Stephon rea Referred To Contact Diagnoses Multiple sclerosis exacerbation (CMS-HCC) Procedures LA INJECTION, UBLITUXIMAB-XIIY, 1MG Bite, Ceferino, DO [address] [place] [address] [facility] [address] [place] [address] Ordered Prescriptions (unrec ognized section and content) [...] Madelaine Hernandez) 08 (Given - Provider: Chavez Brewer, OSMANI) insulin lispro (HUMALOG) injection vial 0-4 Units 0-4 Units, SubCUTAneous, NIGHTLY, First dose on Mon02/14/22 at 2100, Until Discontinued, If continuous tube feedings/TPN/NPO, give correction dose based on result, no reduction in dose. If eating or bolus tube feeding: Corrective Bedtime Algorithm Glucose: Dose: 70-299 No Insulin 300-349 4 Units Over 349 4 Units and notify physician 2227 (Not Given - Provider: Miriam Quevedo RN - Reason: Order parameters not met) 2109 (Not Given - Provider: Miriam Quevedo RN [...] at 0130 0125 (Given - Provider: Calixto Bhandari, OSMANI) methylPREDNISolone sodium (SOLU-MEDROL) 1,000 mg in sodium chloride 0.9 % 250 mL IVPB 1,000 mg, IntraVENous, at 500 mL/hr, Administer over 30 Minutes, DAILY, First dose (after last modification) on Mon02/15/22 at 0900, For 5 doses 0945 (New Bag - Provider: Madelaine Hernandez)1159 (Stopped - Provider: Madelaine Hernandez) 0828 (New Bag - Provider: Chavez Brewer RN)0856 (Stopped - Provider: Chavez Brewer, OSMANI) methylPREDNISolone sodium (SOLU-MEDROL) 500 mg in sodium chloride 0.9 % 250 mL IVPB (CANCELED) 500 mg, IntraVENous, at 500 mL/hr, Administer over 30 Minutes, 2 times daily, First dose on Mon02/14/22 at 0900 0920 (New Bag - Provider: Nae Davis RN)1332 (Stopped - Provider: Nae Magallanes RN) pantoprazole (PROTONIX) 40 mg in sodium chloride (PF) 10 mL injection 40 mg, IntraVENous, DAILY, First dose on Mon02/14/22 at 0400, Reconstitute with 10 mL 0.9 % sodium chloride and administer over at least 2 minutes. 0430 (Given - Provider: Jose Ferrara RN) 0921 (Given - Provider: Madelaine Hernandez) 0818 (Given - Provider: Chavez Brewer RN) sodium chloride flush 0.9 % injection [...] RN) 0819 (Given - Provider: Chavez Brewer, OSMANI)2100 (Due) PRN Medication Order 02/14/2022 02/15/2022 02/16/2022 [...] 1513 (New Bag - Prov ider: John Thao, OSMANI)1606 (Stopped - Provider: John Thao RN) Scheduled Medication Order 03/06/2022 03/07/2022 03/08/2022 methylPREDNISolone sodium (SOLU-MEDROL) injection 125 mg (COMPLETED) 125 mg, IntraVENous, ONCE, On Mon03/08/22 at 1630, For 1 dose 1642 (Given - Provid er: Maddy Trotter RN) Care Teams (unrecognized sec tion and content) Storeroom Supervisor Relationship Specialty Start Date End Date Lexus Ko [place] - [employer]DE WR[employer]GLER [address] [place] [address] PCP - General Nurse Practitioner 07/28/20 Storeroom Supervisor Relationship Specialty Start Date End Date Lexus Ko APRN - DUDE WRANGLER [address] [facility] [address] [place] [address] PCP - General Nurse Practitioner 07/28/20 Storeroom Supervisor Relationship Specialty Start Date End Date Helga Cruz [address] [address] PCP - General Family Medicine 03/08/22 Storeroom Supervisor Relationship Specialty Start Date End Date Helga Cruz [address] [address] PCP - General Family Medicine 03/08/22 Storeroom Supervisor Relationship Specialty Start Date End Date No Pcp, [place] [address] PCP - General Family Medicine 10/08/18 Storeroom Supervisor Relationship Specialty [place] [address] [address] PCP - General Family Medicine 03/08/22 Storeroom Supervisor Relationship Specialty Start Date End Date No Pcp, [place] [address] PCP - General Family Medicine 10/08/18 Storeroom Supervisor Relationship Specialty Start Date End Date No Pcp, [place] [address] PCP - General Family Medicine 10/08/18 Storeroom Supervisor Relationship Specialty Start Date End Date No Pcp, [place] [address] PCP - General Family Medicine 10/08/18 Storeroom Supervisor Relationship Specialty Start Date End Date No Pcp, [place] [address] PCP - General Family Medicine 10/08/18 (unrecognized sect ion and content) No Status Records FoundNo Status Records FoundNo Status Records FoundNo Status Records FoundNo Status Records FoundNo Status Records FoundNo Status Records Found INFORMATION SOURCE (unrecogn ized section and content) DATE CREATED AUTHOR 03/08/2022 [facility] DATE CREATED AUTHOR AUTHOR'S ORGANIZ ATION 03/30/2024 [facility] DATE CREATED AUTHOR AUTHOR'S ORGANIZ ATION 06/23/2024 [facility] DATE CREATED AUTHOR AUTHOR'S ORGANIZ ATION 06/28/2024 [facility] DATE CREATED AUTHOR AUTHOR'S ORGANIZ ATION 08/27/2024 [facility] DATE CREATED AUTHOR AUTHOR'S ORGANIZ ATION 09/02/[address] [facility] DATE CREATED AUTHOR AUTHOR'S ORGANIZ ATION 09/07/2024 [facility] RECORDS PERTAINING TO PATIENTS WHO ARE [...] BE BASED ON THE PRIMARY CLINICAL RECORDS. [facility]. provides no warranty or guarantee of the accuracy or completeness of information in this document.
== END 2024-09-09 08:03 | disposition home or self-care (01) ==
LOC: MRI 08:02
PROVIDERS: PCP Family Medicine; Visit Provider Nurse Practitioner Primary Care
DX: R59.9 Enlarged lymph nodes, unspecified (principal); R19.04 Left lower quadrant abdominal swelling, mass and lump
CPT/HCPCS: 72197; A9575